=== PATIENT | male | born 1935 | race Caucasian/White ===

== ENCOUNTER → 2016-12-29 | Outpatient (CLI) | payer MEDICARE, BC ==
[2016-07-05 13:24] VITALS: BP 144/67
[~2016-12-29] MED LIST: ALPR0.5T PO; ALPR0.5T6 PO; AMLO1CAP15 PO; ASPI-482 PO; AZIT1PAC7 PO; FERR-26 PO; FLUT1DIS5 IH; GARL10002 PO; POTA99TA4 PO; PRED20TA PO; PROAIR HFA8.5 GM INH; TIOT18CA IH
--- NOTE | 2016-12-29 13:14 | KCIC ---
PROCEDURE CT chest without contrast. HISTORY Lung nodule, follow-up. TECHNIQUE Axial images and coronal and sagittal re-formatted images are provided. One or more of the following individualized dose reduction techniques were utilized for this exam: 1. Automated exposure control. 2. Adjustment of the mA and/or kV according to patient's size. 3. Use of iterative reconstruction technique. COMPARISON April 21, 2016. FINDINGS Right upper lobe nodule with irregular margins on image 25 measures 8 millimeters, stable. Right upper lobe nodule or area of scarring measuring 8 millimeters in size is similar to prior, coronal image 38. Right middle lobe nodule measuring 4 millimeters on image 76 is stable. Right lower lobe 5 millimeter nodule on image 54 retrospectively is stable. No worrisome pulmonary nodule on the left is identified. There is moderate to severe emphysema, unchanged. There is no pleural effusion. Central airways are patent. Left thyroid nodule is again noted. 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 There are coronary artery calcifications. Heart is not enlarged. Calcified right hilar lymph node is noted. There are degenerative changes in the spine. IMPRESSION - Stable noncalcified pulmonary nodules. Next follow up per Fleischner society recommendations is in approximately 6 months. - Moderate to severe emphysema. - Stable thyroid nodule. Electronically signed by: Mono Lopes MD (Dec 29, 2016 13:13:03)
== END | disposition home or self-care (01) ==
LOC: KCIC CT 10:06
PROVIDERS: ATTEND Internal Medicine Pulmonary Disease
DX: R91.1 Solitary pulmonary nodule (principal); J43.9 Emphysema, unspecified
CPT/HCPCS: 71250

== ENCOUNTER → 2017-01-08 | Outpatient (CLI) | payer MEDICARE, BC ==
[2016-07-05 13:24] VITALS: BP 144/67
--- NOTE | 2017-01-08 10:43 | RAD ---
Indication: Left thyroid nodule, 6 month follow-up after biopsy. Technique: Thyroid ultrasound was performed. Comparison is from May 30, 2016. Findings: Right thyroid lobe measures 4.2 x 1.6 x 1.7 cm and the left 4.1 x 2.6 x 2.4 cm. The isthmus measures 0.3 cm. Dominant nodule in the left thyroid lobe is complex with color-flow, measures up to 2.7 cm in size compared to 3.4 cm on prior. On the right, 4 of the 5 previously noted nodules were revisualized and not appreciably changed in size. There is a predominately cystic lesion in the superior right thyroid measuring up to 11 mm. There is a complex nodule mid right thyroid measuring up to 7 mm. There is a complex nodule inferior medial right thyroid measuring 6 mm. There is a complex nodule inferiorly measuring 4 mm. No enlarging nodule is identified. Impression: 1. Bilateral thyroid nodules including a dominant nodule on the left which has been previously sampled. No new or enlarging nodule identified.
== END | disposition home or self-care (01) ==
LOC: US 08:41
PROVIDERS: ATTEND Surgery
DX: E04.2 Nontoxic multinodular goiter (principal)
CPT/HCPCS: 76536

== ENCOUNTER → 2017-10-05 | Outpatient (CLI) | payer MEDICARE, BC ==
[2016-07-05 13:24] VITALS: BP 144/67
[~2017-10-05] MED LIST changes: -AZIT1PAC7 PO; +AZIT1PAC9 PO
--- NOTE | 2017-10-05 12:13 | KCIC ---
CT chest without contrast History: Lung nodule.. Technique: No intravenous contrast per request. Multiplanar reformatted images were obtained. Comparison: December 29, 2016. Exposure: One or more of the following individualized dose reduction techniques were utilized for this examination: 1. Automated exposure control 2. Adjustment of the mA and/or kV according to patient size 3. Use of iterative reconstruction technique. Findings: Vascular structures: Limited exam without contrast. Aorta is calcified and ectatic but no aneurysm identified. A very origin of the right subclavian artery is demonstrated. Lymph nodes:No significant enlargement Thyroid gland: Enlargement of the left thyroid gland with a low-density lesion is identified and stable. Heart: Coronary artery calcifications. Pleural spaces: No significant effusion Lungs: Couple of tiny 2 mm nodules in the left lower lobe are stable. Irregular right upper lobe nodule on coronal image 24 again measures 8 mm and is stable. Smaller area of ill-defined opacity in the more superior aspect of the right upper lobe is also stable, axial image 17. Very small right middle lobe nodule, axial image 49, is stable. Small irregular nodule in the right lower lobe, axial image 34, is stable. There is a small new nodule at the posterior aspect of the superior segment of the left lower lobe, measuring 4 mm, not seen previously. Subtle nodularity in the right lower lobe, axial image 35, is stable. Trachea and central airways: Patent Bones: No destructive process Upper abdomen: Slices obtained through the upper most abdomen are limited by the noncontrast technique. No obvious acute findings. Impression: 1. Small 4 mm nodule in the superior segment of left lower lobe, was not seen previously. As per Fleischner Society criteria, follow-up CT in 12 months could be considered if the patient is high risk. 2. Other multiple pulmonary nodules are stable since previous exam. 3. Stable left thyroid mass. Electronically signed by: Ralph Nguyen MD (10/05/2017 12:10 PM) [facility]
== END | disposition home or self-care (01) ==
LOC: KCIC CT 08:12
PROVIDERS: ATTEND Internal Medicine Pulmonary Disease
DX: E07.9 Disorder of thyroid, unspecified (principal)
CPT/HCPCS: 71250

== ENCOUNTER → 2018-06-26 | Outpatient (CLI) | payer MEDICARE, BC ==
[2016-07-05 13:24] VITALS: BP 144/67
[~2018-06-26] MED LIST changes: -FERR-26 PO; +FERR325T14 PO
--- NOTE | 2018-06-26 10:22 | CARD ---
MR#: [id number] Date of Study: 06/26/2018 Ordering Physician: JIMI RITCHIE, Referring Physician: JIMI RITCHIE, Tech: Mickie Gaytan APPROVED REPORT EXAM: Two-dimensional and M-mode echocardiogram with Doppler and color Doppler. Other Information Quality : AverageHR: 76bpm INDICATION Chronic Diastolic Heart Failure RISK FACTORS Hypertension Hyperlipidemia 2D DIMENSIONS RVDd2.1 (2.9-3.5cm)Left Atrium(2D)3.7 (1.6-4.0cm) IVSd0.7 (0.7-1.1cm)Aortic Root(2D)3.3 (2.0-3.7cm) LVDd4.5 (3.9-5.9cm)LVOT Diameter2.0 (1.8-2.4cm) PWd1.0 (0.7-1.1cm)LVDs3.1 (2.5-4.0cm) FS (%) 32.1 %SV55.9 ml LVEF(%)60.4 (>50%) Aortic Valve AoV Peak Stanford.223.6cm/sAoV VTI49.5cm AO Peak GR.20.0mmHgLVOT Peak Stanford.79.2cm/s AO Mean GR.12mmHgAVA (VMAX)1.16cm2 Mitral Valve MV E Ucrvhlqd808.5cm/sMV DECEL TCGN945ci MV A Ggpfbobs16.3cm/sE/A Ratio2.7 Tricuspid Valve TR P. Nmmygzsc939ft/sRAP BQIGNXLQ6xrPz TR Peak Gr.27nhCxIVRA96lcIg Pulmonary Vein PVa elikihnk232cqgh LEFT VENTRICLE The left ventricle is normal size. There is normal left ventricular wall thickness. The left ventricu lar systolic function is normal. The Ejection Fraction is 55-60%. There is normal LV segmental wall m otion. RIGHT VENTRICLE The right ventricle is normal size. There is normal right ventricular wall thickness. The right ventr icular systolic function is normal. ATRIA The left atrium size is normal. The right atrium size is normal. The interatrial septum is intact wit h no evidence for an atrial septal defect or patent foramen ovale as noted on 2-D or Doppler imaging. AORTIC VALVE The aortic valve is calcified and displays decreased opening. Doppler and Color Flow revealed no sign ificant aortic regurgitation. Mild aortic stenosis. MITRAL VALVE The mitral valve is thickened but opens well. Doppler and Color-flow revealed trace mitral regurgitat ion. TRICUSPID VALVE The tricuspid valve is normal in structure and function. Doppler and Color Flow revealed trace tricus pid regurgitation. PAP of 43 mmHg. PULMONIC VALVE The pulmonary valve is normal in structure and function. Doppler and Color Flow revealed no pulmonic valvular regurgitation. GREAT VESSELS The aortic root is normal in size. The IVC is normal in size and collapses >50% with inspiration. PERICARDIAL EFFUSION There is no evidence of significant pericardial effusion. Critical Notification Critical Value: No <Conclusion> The left ventricular systolic function is normal. The Ejection Fraction is 55-60%. There is normal LV segmental wall motion. Mild aortic stenosis. Trace mitral regurgitation. Trace tricuspid regurgitation. PAP of 43 mmHg. There is no evidence of significant pericardial effusion. Signed by : Akhil Loyd, Electronically Approved : 06/26/2018 10:22:20
== END | disposition home or self-care (01) ==
LOC: ECHO 07:16
PROVIDERS: ATTEND Internal Medicine Cardiovascular Disease
DX: I11.0 Hypertensive heart disease with heart failure (principal); I50.32 Chronic diastolic (congestive) heart failure; I35.0 Nonrheumatic aortic (valve) stenosis; J44.9 Chronic obstructive pulmonary disease, unspecified; I25.10 Atherosclerotic heart disease of native coronary artery without angina pectoris; M19.90 Unspecified osteoarthritis, unspecified site
CPT/HCPCS: 93306

== ENCOUNTER 2020-03-30 14:24 | Inpatient (IN) | payer MEDICARE, BC ==
[~2020-03-30] VITALS: Ht 170.2 cm; Wt 49.7 kg
[2020-03-30] VITALS (7 sets, daily range): BP systolic 147–181; BP diastolic 65–74
[~2020-03-30 14:24] MED LIST changes: +ALBU2.5V8 INH; +ALBU2.5V8 NEB; -AMLO1CAP15 PO; +AMLO1CAP54 PO; +APIX2.5T PO; +APIX5TAB PO; +BENA40TA3 PO; +DOXY100T PO; +LACT1CAP19 PO; -PROAIR HFA8.5 GM INH; +SOTA120T PO; +SPIR25TA5 PO; +TAMS0.4C97 PO
[2020-03-30] MEDS ORDERED: IV NORMAL SALINE 1000ML BAG 1,000 ML IV ONE (14:45)
[2020-03-30 14:51] LABS: BASO % 1 % (0-3); EOS % 1 % (0-3); HEMATOCRIT 34.3 % (39.0-53.0); HEMOGLOBIN 11.1 g/dL (13.0-17.5); LYMPH % 23 % (24-48); MEAN CORPUSCULAR HEMOGLOBIN 32 pg (25-35); MEAN CORPUSCULAR HGB CONC 32 g/dL (31-37); MEAN CORPUSCULAR VOLUME 99 fL (79-100); MONO # 0.5 x10^3/uL (0.0-1.1); MONO % 11 % (0-9); NEUT # 2.7 x10^3/uL (1.8-7.7); NEUT % 65 % (31-73); PLATELET COUNT 223 x10^3/uL (140-400); RED BLOOD COUNT 3.47 x10^6/uL (4.30-5.70); RED CELL DISTRIBUTION WIDTH 14.1 % (11.5-14.5); WHITE BLOOD COUNT 4.2 x10^3/uL (4.0-11.0)
[2020-03-30 15:03] LABS: PROTHROMBIN TIME PATIENT 12.3 SEC (11.7-14.0)
[2020-03-30 15:11] LABS: BLOOD UREA NITROGEN 25 mg/dL (8-26); BUN/CREATININE RATIO 28 (6-20); CALCIUM 9.5 mg/dL (8.5-10.1); CHLORIDE 97 mmol/L (98-107); CREATININE 0.9 mg/dL (0.7-1.3); GFR 80.6; GLUCOSE 99 mg/dL (70-99); POTASSIUM 4.5 mmol/L (3.5-5.1); SODIUM 145 mmol/L (136-145)
[2020-03-30 15:19] LABS: ALBUMIN 3.3 g/dL (3.4-5.0); ALBUMIN/GLOBULIN RATIO 0.9 (1.0-1.7); ALK PHOS 72 U/L (46-116); ALT (SGPT) 29 U/L (16-63); AST (SGOT) 29 U/L (15-37); LIPASE 69 U/L (73-393); TOTAL BILIRUBIN 0.4 mg/dL (0.2-1.0); TOTAL PROTEIN 6.9 g/dL (6.4-8.2)
[2020-03-30 15:21] LABS: CARBON DIOXIDE > 45 mmol/L (21-32)
[2020-03-30 15:40] LABS: BILIRUBIN,URINE SMALL (NEG); CLARITY,URINE CLEAR; COLOR,URINE YELLOW; NITRITE,URINE NEGATIVE (NEG); PROTEIN,URINE 30 mg/dL (NEG-TRACE)
--- NOTE | 2020-03-30 15:48 | EKG ---
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
[2020-03-30 15:49] LABS: BACTERIA,URINE 0 /HPF (0-FEW); HYALINE CASTS, URINE MANY /HPF; RBC,URINE OCC /HPF (0-2); WBC,URINE 0 /HPF (0-4)
[2020-03-30 16:51] LABS: BASE EXCESS ABG 20 mmol/L (-3-3); HCO3 ABG 54 mmol/L (21-28); PO2 ABG 214 mmHg (65-108); SAT O2 ABG 99 % (92-99)
[2020-03-30 16:56] LABS: FIO2 ABG 2.5L NC; PCO2 ABG 147 mmHg (35-46)
--- NOTE | 2020-03-30 17:15 | RAD ---
EXAM: CHEST AP ONLY INDICATION: Reason: soa / Spl. Instructions: / History: . TECHNIQUE: Single view COMPARISON: 02/19/2020 FINDINGS: The heart size is normal. Great vessels show aortic calcification and mild tortuosity, similar to prior. There is no hilar or mediastinal mass. The lungs show emphysema but no focal infiltrates. There is no pleural effusion or pneumothorax. There are no significant osseous abnormalities. IMPRESSION: Emphysema with no radiographic evidence of superimposed active cardiopulmonary disease. Electronically signed by: Bonnie Vincent MD (03/30/2020 5:12 PM) [id number]
--- NOTE | 2020-03-30 17:20 | PHYS DOC ---
Past Medical History Past Medical History: A-Fib, Anemia, COPD, Hypertension Past Surgical History: Other Additional Past Surgical Histo: nasal septal repair Smoking Status: Former Smoker Alcohol Use: Heavy Drug Use: None General Adult EDM: Chief Complaint: WEAKNESS/GENERALIZED HPI: HPI: Patient is a 84 year old male who was found unresponsive in his house today by his stepson. EMS were called, patient was able to wake up told them that he did not want to go to the hospital. But patient's step son and step daughter asked EMS to take patient to the hospital for evaluation due to his confusion. It was reported by family that patient's just had a stroke about 4 days ago, admitted at . They were planning to take her off life support today. Patient has been staying home by himself. His family suspect that patient stopped eating and taking his medication, giving up because his is dying. Review of Systems: Review of Systems: Not able to obtain due to patient condition. Heart Score: Risk Factors: Risk Factors: DM, Current or recent (<one month) smoker, HTN, HLP, family history of CAD, obesity. Risk Scores: Score 0 - 3: 2.5% MACE over next 6 weeks - Discharge Home Score 4 - 6: 20.3% MACE over next 6 weeks - Admit for Clinical Observation Score 7 - 10: 72.7% MACE over next 6 weeks - Early Invasive Strategies Current Medications: Current Medications Medications (Trade) Dose Ordered Sig/Gregory Start Time Stop Time Status Last Admin Dose Admin Sodium Chloride 1,000 ml @ 1,000 mls/hr 1X ONCE 03/30/20 14:45 03/30/20 15:44 DC 03/30/20 14:55 1,000 MLS/HR Allergies: Allergies: Allergies Coded Allergies Type Severity Reaction Last Updated Verified pneumococcal vaccine Adverse Reaction Intermediate upper arm red and swollen after vaccine 11/03/15 Yes Physical Exam: PE: Constitutional: Well developed, cachectic, appeared frail and dehydrated. HENT: Normocephalic, atraumatic, bilateral external ears normal, oral mucosa is very dried, no oral exudates, nose normal. [] Eyes: PERRLA, EOMI, conjunctiva normal, no discharge. [] Neck: Normal range of motion, no tenderness, supple, no stridor. [] Cardiovascular:Sinus bradycardia, regular rhythm, no murmur [] Lungs & Thorax: diffuse wheezing with decrease air movement, in no respiratory distress. Abdomen: Bowel sounds normal, soft, no tenderness, no masses, no pulsatile masses. [] Skin: Warm, dry, no erythema, no rash. [] Back: No tenderness, no CVA tenderness. [] Extremities: No tenderness, no cyanosis, no clubbing, ROM intact, no edema. [] Neurologic: alert, awake but very confused, was observed moving all extremities. Psychologic: not able to evaluate. Current Patient Data: Labs: Laboratory Tests Test 03/30/20 14:30 03/30/20 15:25 03/30/20 16:45 White Blood Count 4.2 x10^3/uL (4.0-11.0) Red Blood Count 3.47 x10^6/uL (4.30-5.70) L Hemoglobin 11.1 g/dL (13.0-17.5) L Hematocrit 34.3 % (39.0-53.0) L Mean Corpuscular Volume 99 fL (79-100) Mean Corpuscular Hemoglobin 32 pg (25-35) Mean Corpuscular Hemoglobin Concent 32 g/dL (31-37) Red Cell Distribution Width 14.1 % (11.5-14.5) Platelet Count 223 x10^3/uL (140-400) Neutrophils (%) (Auto) 65 % (31-73) Lymphocytes (%) (Auto) 23 % (24-48) L Monocytes (%) (Auto) 11 % (0-9) H Eosinophils (%) (Auto) 1 % (0-3) Basophils (%) (Auto) 1 % (0-3) Neutrophils # (Auto) 2.7 x10^3/uL (1.8-7.7) Lymphocytes # (Auto) 1.0 x10^3/uL (1.0-4.8) Monocytes # (Auto) 0.5 x10^3/uL (0.0-1.1) Eosinophils # (Auto) 0.0 x10^3/uL (0.0-0.7) Basophils # (Auto) 0.0 x10^3/uL (0.0-0.2) Prothrombin Time 12.3 SEC (11.7-14.0) Prothrombin Time INR 1.0 (0.8-1.1) Sodium Level 145 mmol/L (136-145) Potassium Level 4.5 mmol/L (3.5-5.1) Chloride Level 97 mmol/L (98-107) L Carbon Dioxide Level > 45 mmol/L (21-32) H Anion Gap (6-14) Blood Urea Nitrogen 25 mg/dL (8-26) Creatinine 0.9 mg/dL (0.7-1.3) Estimated GFR (Cockcroft-Gault) 80.6 BUN/Creatinine Ratio 28 (6-20) H Glucose Level 99 mg/dL (70-99) Calcium Level 9.5 mg/dL (8.5-10.1) Magnesium Level 2.0 mg/dL (1.8-2.4) Total Bilirubin 0.4 mg/dL (0.2-1.0) Aspartate Amino Transferase (AST) 29 U/L (15-37) Alanine Aminotransferase (ALT) 29 U/L (16-63) Alkaline Phosphatase 72 U/L (46-116) Troponin I Quantitative < 0.017 ng/mL (0.000-0.055) RS-Ksr-Z-Type Natriuretic Peptide 537 pg/mL (0-449) H Total Protein 6.9 g/dL (6.4-8.2) Albumin 3.3 g/dL (3.4-5.0) L Albumin/Globulin Ratio 0.9 (1.0-1.7) L Lipase 69 U/L (73-393) L Thyroid Stimulating Hormone (TSH) 1.426 uIU/mL (0.358-3.74) Free Thyroxine 0.91 ng/dL (0.76-1.46) Urine Collection Type U cath Urine Color Yellow Urine Clarity Clear Urine pH 5.0 (<5.0-8.0) Urine Specific [place] 1.025 (1.000-1.030) Urine Protein 30 mg/dL (NEG-TRACE) Urine Glucose (UA) Negative mg/dL (NEG) Urine Ketones (Stick) Negative mg/dL (NEG) Urine Blood Negative (NEG) Urine Nitrite Negative (NEG) Urine Bilirubin Small (NEG) Urine Urobilinogen Dipstick 1.0 mg/dL (0.2 mg/dL) Urine Leukocyte Esterase Negative (NEG) Urine RBC Occ /HPF (0-2) Urine WBC 0 /HPF (0-4) Urine Bacteria 0 /HPF (0-FEW) Urine Hyaline Casts Many /HPF Urine Mucus Mod /LPF O2 Saturation 99 % (92-99) Arterial Blood pH 7.18 (7.35-7.45) *L Arterial Blood pCO2 at Patient Temp 147 mmHg (35-46) *H Arterial Blood pO2 at Patient Temp 214 mmHg (65-108) H Arterial Blood HCO3 54 mmol/L (21-28) H Arterial Blood Base Excess 20 mmol/L (-3-3) H FiO2 2.5l nc Laboratory Tests 03/30/20 14:30 Laboratory Tests 03/30/20 14:30 Vital Signs: Vital Signs Date Time Temp Pulse Resp B/P (MAP) Pulse Ox O2 Delivery O2 Flow Rate FiO2 03/30/20 16:46 40 16 100 03/30/20 14:25 98.5 142/65 (90) Nasal Cannula 3.0 98.5 EKG: EKG: EKG was done at 1454, heart rate of 40 beats per minute, sinus bradycardia, no ST segment elevation. [] Radiology/Procedures: Radiology/Procedures: [][facility] [address] [place] [address] IMAGING REPORT Signed PATIENT: JERROD WHIPPLE ACCOUNT: [id number] : 1935 LOCATION: ER AGE: 84 SEX: M EXAM STATUS: REG ER ORD. PHYSICIAN: DAVIN CASTELLANOS DO REASON: soa PROCEDURE: CHEST AP ONLY EXAM: CHEST AP ONLY INDICATION: Reason: soa / Spl. Instructions: / History: . TECHNIQUE: Single view COMPARISON: 02/19/2020 FINDINGS: The heart size is normal. Great vessels show aortic calcification and mild tortuosity, similar to prior. There is no hilar or mediastinal mass. The lungs show emphysema but no focal infiltrates. There is no pleural effusion or pneumothorax. There are no significant osseous abnormalities. IMPRESSION: Emphysema with no radiographic evidence of superimposed active cardiopulmonary disease. Electronically signed by: Lucas Vincent MD (03/30/2020 5:12 PM) [id number] DICTATED and SIGNED BY: LUCAS VINCENT MD DATE: 03/30/20 1712 Course & Med Decision Making: Course & Med Decision Making Pertinent Labs and Imaging studies reviewed. (See chart for details) Patient is an 84-year-old who was found to be dehydrated, COPD with hypercapnia. His CO2 level IS 147. I suspect that his baseline around 80. Patient is awake alert, not OBTUNDED. Discussed with the grey goods tester car inspection and repair manager Dr. MAURILIO Garcia, who recommended to put him on BiPAP and admit him to ICU. At this time HIS CODE STATUS CANNOT BE EVALUATED BECAUSE OF HIS MENTAL STATUS and no biological children or DPOA were available. Thus we will keep his code status as full for now. Patient was given IV fluid and his condition appeared to improved. I suspected that patient is giving up, stopped eating and stopped taking his medications because his just . Will admit him to ICU. Discussed with Dr. Ward who agreed to admit patient. I was able to discuss patient's condition with his step son, Vivek. He stated that he cannot make medical decision for patient because he is not DPOA but he knew that his step dad does not want to be on life support. Critical care time was [60] minutes which includes time at bedside, spent in discussion of patient's care with specialist and/or family members, with interpretation of laboratory and/or radiological studies and is exclusive of procedures. Dragon Disclaimer: Dragreid Disclaimer: This electronic medical record was generated, in whole or in part, using a voice recognition dictation system. Departure Departure Impression: Primary Impression: Hypercapnia Additional Impressions: COPD (chronic obstructive pulmonary disease) Dehydration Altered mental status Disposition: ADMITTED INPATIENT Admitting Physician: JORDAN (DR. WARD) Condition: GUARDED Referrals: TRAY NETTLES MD (PCP) DAVIN CASTELLANOS DO Mar 30, 2020 17:20
[2020-03-30] MEDS ORDERED: methylPREDNISolone SOD SUCC PF 125 MG/2 ML VIAL. IV ONE (17:30)
[2020-03-30 20:50] LABS: BASE EXCESS ABG 16 mmol/L (-3-3); HCO3 ABG 43 mmol/L (21-28); PO2 ABG 58 mmHg (65-108); SAT O2 ABG 91 % (92-99)
[2020-03-30 20:51] LABS: PCO2 ABG 72 mmHg (35-46)
--- NOTE | 2020-03-30 22:56 | HP ---
ADMIT DATE: CHIEF COMPLAINT: Failure to thrive. HISTORY OF PRESENT ILLNESS: The patient is a pleasant 84-year-old male who has been for a long time. His was in the hospital at , apparently today they withdrew care and I believe she did pass away. He is now very depressed. It sounds like he has been doing well at home by himself for quite some time. I think he has been at home alone for a week or so. He has not been eating. He is very dehydrated, lethargic. His heart rate was low while in the ER, his CO2 level is high. I discussed the case with ER physician. We consider even intubating the patient, but he does not want that. His pH was 7.1 while in the ER. We have now admitted him to the ICU. We placed him on BiPAP. Now, he is waking up, doing a little better. PAST MEDICAL HISTORY: Reviewed in the computerized system. Please refer to the computerized H and P. ALLERGIES: None. FAMILY HISTORY: Diabetes. SOCIAL HISTORY: He is . He just lost his today. MEDICATIONS: Reviewed, please refer to the MRAD. REVIEW OF SYSTEMS: Unable to obtain. The patient is too weak. PHYSICAL EXAMINATION: VITALS: Within normal limits and are stable. GENERAL: He is depressed, disheveled and weak. HEENT: Oral mucosa is moist. EYES: Extraocular muscles are intact, pupils are equally round and reactive to light and accommodation MUSCULOSKELETAL: Well developed, well nourished, good range of motion ENDOCRINE: No thyromegaly was palpated LYMPHATICS: No cervical chain or axillary nodes were noted HEMATOPOIETIC: No bruising NECK: Supple, no JVD, no thyromegaly was noted. LUNGS: Clear to auscultation in all lung lujan without rhonchi or wheezing. HEART: RRR, S1, S2 present. Peripheral pulses intact, no obvious murmurs were noted. ABDOMEN: Soft, nontender. Positive bowel sounds no organomegaly, normal bowel sounds. EXTREMITIES: Without any cyanosis, clubbing, or edema. Pedal pulses intact, Homans sign is negative. NEUROLOGIC: Normal speech, normal tone. A & O x3, moves all extremities, no obvious focal deficits. PSYCHIATRIC: Normal affect, normal mood. Stable. SKIN: He has very poor skin turgor, appears to be dehydrated. VASCULAR: Good capillary refill, neurovascular bundle appears to be intact. ASSESSMENT AND PLAN: Failure to thrive. The patient has been admitted. We are going to start some low-dose peripheral nutrition including procalamine at 75 mL an hour. Home meds, DVT prophylaxis, full code, BiPAP. Consult Pulmonary. The patient has already started to perk up, so maybe he will do better, but at this point, his prognosis is guarded. RADHA VALLADARES DO DR: ALAN/michael JOB#: [id number] / [id number]
[2020-03-30] MEDS: AMINO AC 3%/ELECTROLYTE/GLYCER 1,000 ML IV SCH (23:24)
[2020-03-30] MEDS: hydrALAZINE 20 MG/ML VIAL. IVP PRN (23:25)
[2020-03-31] VITALS (24 sets, daily range): BP systolic 126–210; BP diastolic 50–84
--- NOTE | 2020-03-31 04:53 | NUR ---
Admitted to CVICU room 270 from ED. Arrived to room with 2L NC. Bipap placed by . Jose requested repeat blood gas. Evaluated by Ed at bedside. Spoke with patient's daughter Kimberly platt be arriving to [place] from [place]. She advised tension within the family and in-laws. Advised patient of conversation and patient got irate and advised she is a "crook". But he stated it was okay to give her information. Patient states he has "panic attacks" and usually takes "4 xanax" a day. Unknown dose. Episodes of HTN. [place] notified and orders received for hydralzine. Patient tolerated bipap but would occasionally pull of mask. Will continue to monitor.
--- NOTE | 2020-03-31 08:11 | PDOC ---
[employer] PROGRESS NOTE Chief Complaint Chief Complaint Probable failure to thrive (he cannot take care of himself at home I do not think) Hypercapnia Respiratory failure COPD Probable severe depression (his recently) A. fib Hypertension Anemia Alcohol use Tobacco History of Present Illness History of Present Illness 03/31/2020 Patient seen and examined in the ICU He is on BiPAP He is receiving IV ProcalAmine at 75 cc an hour Discussed with nurse Chart reviewed Vitals/I&O Vitals/I&O: Vital Signs Date Time Temp Pulse Resp B/P (MAP) Pulse Ox O2 Delivery O2 Flow Rate FiO2 03/31/20 07:41 98.9 55 18 178/76 (110) 100 BiPAP/CPAP 98.9 03/31/20 04:00 1.0 I & O 03/30/20 03/30/20 03/31/20 15:00 23:00 07:00 Intake Total 1000 ml Output Total 400 ml Balance 1000 ml -400 ml Physical Exam General: Oriented X3, mild distress Heart: Regular rate, Normal S1 Lungs: Other (Decreased breath sounds) Abdomen: Normal bowel sounds Extremities: No clubbing Skin: Other (Poor skin turgor dry) Labs Labs: Laboratory Tests Test 03/30/20 14:30 03/30/20 15:25 03/30/20 16:45 03/30/20 21:20 White Blood Count 4.2 x10^3/uL (4.0-11.0) Red Blood Count 3.47 x10^6/uL (4.30-5.70) Hemoglobin 11.1 g/dL (13.0-17.5) Hematocrit 34.3 % (39.0-53.0) Mean Corpuscular Volume 99 fL (79-100) Mean Corpuscular Hemoglobin 32 pg (25-35) Mean Corpuscular Hemoglobin Concent 32 g/dL (31-37) Red Cell Distribution Width 14.1 % (11.5-14.5) Platelet Count 223 x10^3/uL (140-400) Neutrophils (%) (Auto) 65 % (31-73) Lymphocytes (%) (Auto) 23 % (24-48) Monocytes (%) (Auto) 11 % (0-9) Eosinophils (%) (Auto) 1 % (0-3) Basophils (%) (Auto) 1 % (0-3) Neutrophils # (Auto) 2.7 x10^3/uL (1.8-7.7) Lymphocytes # (Auto) 1.0 x10^3/uL (1.0-4.8) Monocytes # (Auto) 0.5 x10^3/uL (0.0-1.1) Eosinophils # (Auto) 0.0 x10^3/uL (0.0-0.7) Basophils # (Auto) 0.0 x10^3/uL (0.0-0.2) Prothrombin Time 12.3 SEC (11.7-14.0) Prothromb Time International Ratio 1.0 (0.8-1.1) Sodium Level 145 mmol/L (136-145) Potassium Level 4.5 mmol/L (3.5-5.1) Chloride Level 97 mmol/L (98-107) Carbon Dioxide Level > 45 mmol/L (21-32) Anion Gap (6-14) Blood Urea Nitrogen 25 mg/dL (8-26) Creatinine 0.9 mg/dL (0.7-1.3) Estimated GFR (Cockcroft-Gault) 80.6 BUN/Creatinine Ratio 28 (6-20) Glucose Level 99 mg/dL (70-99) Calcium Level 9.5 mg/dL (8.5-10.1) Magnesium Level 2.0 mg/dL (1.8-2.4) Total Bilirubin 0.4 mg/dL (0.2-1.0) Aspartate Amino Transf (AST/SGOT) 29 U/L (15-37) Alanine Aminotransferase (ALT/SGPT) 29 U/L (16-63) Alkaline Phosphatase 72 U/L (46-116) Troponin I Quantitative < 0.017 ng/mL (0.000-0.055) DR-Fod-U-Type Natriuretic Peptide 537 pg/mL (0-449) Total Protein 6.9 g/dL (6.4-8.2) Albumin 3.3 g/dL (3.4-5.0) Albumin/Globulin Ratio 0.9 (1.0-1.7) Lipase 69 U/L (73-393) Thyroid Stimulating Hormone (TSH) 1.426 uIU/mL (0.358-3.74) Free Thyroxine 0.91 ng/dL (0.76-1.46) Urine Collection Type U cath Urine Color Yellow Urine Clarity Clear Urine pH 5.0 (<5.0-8.0) Urine Specific [place] 1.025 (1.000-1.030) Urine Protein 30 mg/dL (NEG-TRACE) Urine Glucose (UA) Negative mg/dL (NEG) Urine Ketones (Stick) Negative mg/dL (NEG) Urine Blood Negative (NEG) Urine Nitrite Negative (NEG) Urine Bilirubin Small (NEG) Urine Urobilinogen Dipstick 1.0 mg/dL (0.2 mg/dL) Urine Leukocyte Esterase Negative (NEG) Urine RBC Occ /HPF (0-2) Urine WBC 0 /HPF (0-4) Urine Bacteria 0 /HPF (0-FEW) Urine Hyaline Casts Many /HPF Urine Mucus Mod /LPF O2 Saturation 99 % (92-99) 91 % (92-99) Arterial Blood pH 7.18 (7.35-7.45) 7.40 (7.35-7.45) Arterial Blood pCO2 at Patient Temp 147 mmHg (35-46) 72 mmHg (35-46) Arterial Blood pO2 at Patient Temp 214 mmHg (65-108) 58 mmHg (65-108) Arterial Blood HCO3 54 mmol/L (21-28) 43 mmol/L (21-28) Arterial Blood Base Excess 20 mmol/L (-3-3) 16 mmol/L (-3-3) FiO2 2.5l nc Arterial Blood pO2 (Temp corrected) mmHg Review of Systems Review of Systems: Complains of depression complains of weakness Assessment and Plan Assessmemt and Plan Problems Medical Problems: (1) Altered mental status Status: Acute (2) COPD (chronic obstructive pulmonary disease) Status: Acute (3) Dehydration Status: Acute (4) Hypercapnia Status: Acute Probable failure to thrive (he cannot take care of himself at home I do not think) Hypercapnia Respiratory failure COPD Probable severe depression (his recently) A. fib Hypertension Anemia Alcohol use Tobacco Plan ICU monitoring IV PPN which seems to be helping a lot BiPAP Home meds PT OT DVT prophylaxis Full code Appreciate subspecialist input I suspect he will need long-term care placement after discharge Long-term prognosis guarded Comment Review of Relevant I have reviewed the following items matheus (where applicable) has been applied. Medications: Current Medications Medications (Trade) Dose Ordered Sig/Gregory Route PRN Reason Start Time Stop Time Status Last Admin Dose Admin Sodium Chloride 1,000 ml @ 1,000 mls/hr 1X ONCE IV 03/30/20 14:45 03/30/20 15:44 DC 03/30/20 14:55 Methylprednisolone Sodium Succinate (SOLU-Medrol 125MG VIAL) 125 mg 1X ONCE IV 03/30/20 17:30 03/30/20 17:31 DC 03/30/20 17:27 Amino Acids/ Glycerin/ Electrolytes 1,000 ml @ 75 mls/hr [id number] IV 03/30/20 21:30 03/30/20 23:24 Hydralazine HCl (Apresoline Inj) 10 mg PRN Q2HR PRN IVP ELEVATED BP, SEE COMMENTS 03/30/20 23:00 03/30/20 23:25 Justicifation of Admission Dx: Justifications for Admission: Justification of Admission Dx: Yes Respiratory Failure: Severe Vent Deficit RADHA VALLADARES III DO Mar 31, 2020 08:11
[2020-03-31] MEDS: hydrALAZINE 20 MG/ML VIAL. IVP PRN ×4 (08:52→22:00)
[2020-03-31] MEDS ORDERED: SOTALOL 80 MG TABLET. PO SCH (10:00)
--- NOTE | 2020-03-31 10:20 | PDOC2 ---
JUAN GONZÁLES COKE CRUSHER OPERATOR 03/31/20 1020: CARDIAC CONSULT DATE OF CONSULT Date of Consult DATE: 03/31/20 TIME: 10:07 REASON FOR CONSULT Reason for Consult: Sinus bradycardia REFERRING PHYSICIAN Referring Physician: Dr. Garcia SOURCE Source: Chart review, Patient HISTORY OF PRESENT ILLNESS HISTORY OF PRESENT ILLNESS This is 84 yo male was was found at home unresponsive by family. Patient initially declined to go to the ED, but family insisted as he was confused. Was noted to be bradycardic upon arrival, which prompted this consult. Patient is on Sotalol for AFIB. Unfortunately, patient suffered massing stroke this past Sunday. Was taken off of Life Support and passes away this morning. Family concerned that he is not able to care for himself at home. Patient reports compliance with meds. No chest pain, palpitations, dizziness, diaphoresis, or nausea/vomiting. PAST MEDICAL HISTORY Past Medical History Cardiovascular: AFIB (with past cvn), CHF, HTN, Hyperlipidemia, Aortic stenosis Pulmonary: COPD (O2 use) Psych: Anxiety Musculoskeletal: Osteoarthritis Endocrine: Other (left thyroid nodule) PAST SURGICAL HISTORY Past Surgical History Other (finger cyst removal, nasal septum repair) FAMILY HISTORY Family History: Diabetes, Stroke SOCIAL HISTORY Smoke: Quit ALCOHOL: other (quit ) Lives: Alone ( passed recently ) CURRENT MEDICATIONS CURRENT MEDICATIONS Current Medications Medications (Trade) Dose Ordered Sig/Gregory Route PRN Reason Start Time Stop Time Status Last Admin Dose Admin Sodium Chloride 1,000 ml @ 1,000 mls/hr 1X ONCE IV 03/30/20 14:45 03/30/20 15:44 DC 03/30/20 14:55 Methylprednisolone Sodium Succinate (SOLU-Medrol 125MG VIAL) 125 mg 1X ONCE IV 03/30/20 17:30 03/30/20 17:31 DC 03/30/20 17:27 Amino Acids/ Glycerin/ Electrolytes 1,000 ml @ 75 mls/hr [id number] IV 03/30/20 21:30 03/30/20 23:24 Hydralazine HCl (Apresoline Inj) 10 mg PRN Q2HR PRN IVP ELEVATED BP, SEE COMMENTS 03/30/20 23:00 03/31/20 08:52 ALLERGIES ALLERGIES: Coded Allergies: pneumococcal vaccine (Verified Adverse Reaction, Intermediate, upper arm red and swollen after vaccine, 11/03/15) Had vaccine several years ago (had taken previously without incident) ROS Review of System 14 point ROS conducted with pertinent positives noted above in HPI PHYSICAL EXAM General: Alert, Cooperative, No acute distress, Other (oriented to person and time. Intermittent confusion) HEENT: Atraumatic, Mucous membr. moist/pink Lungs: Clear to auscultation Heart: Regular rate, Normal S1, Normal S2, No murmurs Abdomen: Soft, No tenderness Extremities: No edema, Normal pulses Skin: No breakdown, No significant lesion Neuro: Normal speech, Sensation intact Psych/Mental Status: Mood NL MUSCULOSKELETAL: Osteoarthritic changes both hands VITALS/I&O VITALS/I&O: Vital Signs Date Time Temp Pulse Resp B/P (MAP) Pulse Ox O2 Delivery O2 Flow Rate FiO2 03/31/20 10:03 72 28 156/64 (94) 98 Nasal Cannula 2.0 03/31/20 07:41 98.9 98.9 I & O 03/30/20 03/30/20 03/31/20 15:00 23:00 07:00 Intake Total 1000 ml Output Total 400 ml Balance 1000 ml -400 ml LABS Lab: Laboratory Tests Test 03/30/20 14:30 03/30/20 15:25 03/30/20 16:45 03/30/20 21:20 White Blood Count 4.2 x10^3/uL (4.0-11.0) Red Blood Count 3.47 x10^6/uL (4.30-5.70) L Hemoglobin 11.1 g/dL (13.0-17.5) L Hematocrit 34.3 % (39.0-53.0) L Mean Corpuscular Volume 99 fL (79-100) Mean Corpuscular Hemoglobin 32 pg (25-35) Mean Corpuscular Hemoglobin Concent 32 g/dL (31-37) Red Cell Distribution Width 14.1 % (11.5-14.5) Platelet Count 223 x10^3/uL (140-400) Neutrophils (%) (Auto) 65 % (31-73) Lymphocytes (%) (Auto) 23 % (24-48) L Monocytes (%) (Auto) 11 % (0-9) H Eosinophils (%) (Auto) 1 % (0-3) Basophils (%) (Auto) 1 % (0-3) Neutrophils # (Auto) 2.7 x10^3/uL (1.8-7.7) Lymphocytes # (Auto) 1.0 x10^3/uL (1.0-4.8) Monocytes # (Auto) 0.5 x10^3/uL (0.0-1.1) Eosinophils # (Auto) 0.0 x10^3/uL (0.0-0.7) Basophils # (Auto) 0.0 x10^3/uL (0.0-0.2) Prothrombin Time 12.3 SEC (11.7-14.0) Prothrombin Time INR 1.0 (0.8-1.1) Sodium Level 145 mmol/L (136-145) Potassium Level 4.5 mmol/L (3.5-5.1) Chloride Level 97 mmol/L (98-107) L Carbon Dioxide Level > 45 mmol/L (21-32) H Anion Gap (6-14) Blood Urea Nitrogen 25 mg/dL (8-26) Creatinine 0.9 mg/dL (0.7-1.3) Estimated GFR (Cockcroft-Gault) 80.6 BUN/Creatinine Ratio 28 (6-20) H Glucose Level 99 mg/dL (70-99) Calcium Level 9.5 mg/dL (8.5-10.1) Magnesium Level 2.0 mg/dL (1.8-2.4) Total Bilirubin 0.4 mg/dL (0.2-1.0) Aspartate Amino Transferase (AST) 29 U/L (15-37) Alanine Aminotransferase (ALT) 29 U/L (16-63) Alkaline Phosphatase 72 U/L (46-116) Troponin I Quantitative < 0.017 ng/mL (0.000-0.055) [id number] Natriuretic Peptide 537 pg/mL (0-449) H Total Protein 6.9 g/dL (6.4-8.2) Albumin 3.3 g/dL (3.4-5.0) L Albumin/Globulin Ratio 0.9 (1.0-1.7) L Lipase 69 U/L (73-393) L Thyroid Stimulating Hormone (TSH) 1.426 uIU/mL (0.358-3.74) Free Thyroxine 0.91 ng/dL (0.76-1.46) Urine Collection Type U cath Urine Color Yellow Urine Clarity Clear Urine pH 5.0 (<5.0-8.0) Urine Specific [place] 1.025 (1.000-1.030) Urine Protein 30 mg/dL (NEG-TRACE) Urine Glucose (UA) Negative mg/dL (NEG) Urine Ketones (Stick) Negative mg/dL (NEG) Urine Blood Negative (NEG) Urine Nitrite Negative (NEG) Urine Bilirubin Small (NEG) Urine Urobilinogen Dipstick 1.0 mg/dL (0.2 mg/dL) Urine Leukocyte Esterase Negative (NEG) Urine RBC Occ /HPF (0-2) Urine WBC 0 /HPF (0-4) Urine Bacteria 0 /HPF (0-FEW) Urine Hyaline Casts Many /HPF Urine Mucus Mod /LPF O2 Saturation 99 % (92-99) 91 % (92-99) L Arterial Blood pH 7.18 (7.35-7.45) *L 7.40 (7.35-7.45) Arterial Blood pCO2 at Patient Temp 147 mmHg (35-46) *H 72 mmHg (35-46) *H Arterial Blood pO2 at Patient Temp 214 mmHg (65-108) H 58 mmHg (65-108) L Arterial Blood HCO3 54 mmol/L (21-28) H 43 mmol/L (21-28) H Arterial Blood Base Excess 20 mmol/L (-3-3) H 16 mmol/L (-3-3) H FiO2 2.5l nc Arterial Blood pO2 (Temp corrected) mmHg Laboratory Tests 03/30/20 14:30 Laboratory Tests 03/30/20 14:30 ECHOCARDIOGRAM ECHOCARDIOGRAM <Conclusion> The left ventricular systolic function is normal. The Ejection Fraction is 55-60%. There is normal LV segmental wall motion. Trace mitral regurgitation. Trace tricuspid regurgitation with an estimated PAP of 39 mmHg. There is no evidence of significant pericardial effusion. DATE: 02/20/20 1617 ASSESSMENT/PLAN ASSESSMENT/PLAN 1. Unresponsiveness 2. Acute on chronic respiratory failure with AE COPD 3. PAFIB; SR/SB; HR in 40's upon arrival. on Sotalol 120 BID for rhythm maintenance. Recent echo with preserved LV systolic function. No significant valvular anomalies. 4. Accelerated hypertension; remains elevated 5. Anxiety, depression; suffered massive CVA this past Sunday, this am. 6. FTT Recommendations Hold sotalol for 72hrs. Will resume at 120mg daily as CrCl 41. Lisinopril added for BP control Eliquis for stroke prevention Lung optimization as per pulm Supportive care JIMI RITCHIE MD 03/31/20 1653: CARDIAC CONSULT ASSESSMENT/PLAN ASSESSMENT/PLAN Patient seen and examined I agree with our nurse practitioners assessment and plan as above. Acute on chronic respiratory failure with severe COPD. Patient is being evaluated and followed by the pulmonary service. Paroxysmal atrial fibrillation with a sinus bradycardia with rates in the 40s. Holding sotalol at this time as above. Hypertension. Lisinopril added. Continuing to monitor. Thank you for allowing us to participate in the care of your patient. JUAN GONZÁLES APRN Mar 31, 2020 10:20 JIMI RITCHIE MD Mar 31, 2020 16:53
--- NOTE | 2020-03-31 10:20 | CONS ---
DATE OF CONSULTATION: PULMONARY CONSULTATION ATTENDING PHYSICIAN: Dr. Ward. REASON FOR CONSULTATION: Respiratory failure. HISTORY OF PRESENT ILLNESS: The patient is an 84-year-old male who 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 He was brought into the hospital with dyspnea and lethargy. The patient's had a stroke and is admitted to another hospital. He was depressed. He thinks that she may not survive. ER physician called me at that time with his arterial blood gases, which were highly abnormal with a pH of 7.18, pCO2 of 147 and a pO2 of 214 on 2.5 liters. At that time, the patient was having conversation when these ABGs were drawn. Since his code status was questionable, we opted to give him a trial on BiPAP. The patient subsequently made improvement and his mental status continued to improve and follow ABGs last evening showed a pH of 7.40, pCO2 of 72 and a pO2 of 58 on BiPAP. He is now on a nasal cannula. He is fully awake, following commands. He denies any cough, chest pain or headaches. No nausea, vomiting or diarrhea. His chest x-ray revealed evidence of COPD. No definite consolidation seen. He had a CT chest on 02/22/2020 which was also reviewed by me and it shows resolution of 4 mm tiny nodules in the left upper lobe. There was evidence of emphysema and very tiny few millimeters nodules. The patient has lost weight as well over several months. PAST MEDICAL HISTORY: Significant for suspected end-stage chronic obstructive pulmonary disease. Protein-calorie malnutrition with loss of muscle mass likely secondary to end-stage chronic obstructive pulmonary disease. PAST SURGICAL HISTORY: None recently. FAMILY HISTORY: Diabetes. ALLERGIES: None. MEDICATIONS: Reviewed as listed in the [facility] including Xanax, which he takes at home. REVIEW OF SYSTEMS: A 12-point obtained. Pertinent positives discussed in my history of present illness, otherwise noncontributory. All systems that were negative were reviewed as well. SOCIAL HISTORY: He has a long history of tobacco use. PHYSICAL EXAMINATION: GENERAL: He is awake, following commands. He is off the BiPAP. VITAL SIGNS: His blood pressure 161/57, pulse ox 100% on 4 liters. It is down to 2 liters, afebrile. HEENT: Sclerae nonicteric. NECK: Supple. LUNGS: With diminished breath sounds bilaterally. CARDIOVASCULAR: With a regular rate. ABDOMEN: Soft, nontender. EXTREMITIES: With no pitting edema. LABORATORY DATA: Reviewed. ABGs are discussed in my history of present illness. BUN is 25, creatinine 0.9, bicarbonate more than 45. IMPRESSION: 1. [id number] hypercapnic respiratory failure secondary to acute exacerbation of chronic obstructive pulmonary disease. 2. End-stage chronic obstructive pulmonary disease with significant weight loss, likely secondary to chronic obstructive pulmonary disease. No definite mass seen on the chest x-ray and previous CT. 3. Previous abnormal CT chest with tiny lung nodules, 2-3 mm in diameter and no intervention required for that. 4. Chronic benzodiazepine use, may have contributed to hypercapnic respiratory failure. RECOMMENDATIONS: 1. The patient has improved with the BiPAP. Clinically, he is fully oriented. I will continue nasal cannula. Avoid hyperoxia and keep using BiPAP at bedtime. 2. Add bronchodilators. 3. Minimize benzodiazepines. 4. Lovenox for DVT prophylaxis. 5. I have discussed advanced directives with the patient and discussed with him regarding the option of intubation and CPR and defibrillation and he clearly says no to it which is very reasonable decision. 6. I discussed with RN as well who witnessed the patient's advanced directives. He will be a DNR. We will follow along with you. Critical care time 37 minutes. MAURILIO ALEJANDRA MD DR: OSEI/michael JOB#: [id number] / [id number]
[2020-03-31] MEDS: LACTOBACILLUS RHAMNOSUS GG 1 CAPSULE. PO SCH ×2 (10:58→21:54)
[2020-03-31] MEDS: ASPIRIN ENTERIC COATED 81 MG TABLET.DR. PO SCH (10:58)
[2020-03-31] MEDS: APIXABAN 2.5 MG TABLET. PO SCH ×2 (10:58→21:54)
[2020-03-31] MEDS: AMINO AC 3%/ELECTROLYTE/GLYCER 1,000 ML IV SCH (10:59)
--- NOTE | 2020-03-31 11:09 | NUR ---
Spoke with patient's step daughter, Kandy. She informed me, Ethal, her mom and patient's this morning at . Patient is aware that was taken to for a CVA. Trying to get ahold of step son, Vivek, to discuss if and when to let patient know. Several family members has called this RN. This RN request a family member to be the main contact. Family dynamics are strained.
[2020-03-31] MEDS: LISINOPRIL 20 MG TABLET PO SCH ×2 (12:22→21:54)
[2020-03-31] MEDS: ALPRAZolam 0.25 MG TABLET PO PRN ×2 (12:22→21:29)
[2020-03-31] MEDS: IPRATRPIUM/ALBUTEROL 0.5/2.5MG 3 ML NEBU. NEB SCH ×2 (15:38→20:01)
--- NOTE | 2020-03-31 16:02 | NUR ---
SS following for discharge planning. SS reviewed pt chart and discussed with pt RN. Pt is from home and is currently on BIPAP on and off. Pt recently withdrew care of spouse and was admitted to [facility] shortly after. Pt is currently on PPN and will need PT/OT to evaluate and assess needs. SS will continue to follow for discharge planning.
[2020-03-31] MEDS ORDERED: ANTI-COAG MONITOR BY PHARMACY. MC PRN (17:00)
--- NOTE | 2020-03-31 18:19 | NUR ---
Patient's long time friend, Ed Walker, called and told patient that his this morning. Patient is talkative, however seems to be taking it well. This RN will consult SS for home health consideration for patient per family friend.
[2020-03-31] MEDS: TAMSULOSIN 0.4 MG CAP.ER.24H. PO SCH (21:54)
[2020-04-01] VITALS (13 sets, daily range): BP systolic 128–182; BP diastolic 60–96
[2020-04-01] MEDS: ALPRAZolam 0.25 MG TABLET PO PRN ×4 (03:38→19:47)
[2020-04-01] MEDS: hydrALAZINE 20 MG/ML VIAL. IVP PRN (04:04)
[2020-04-01] MEDS: AMINO AC 3%/ELECTROLYTE/GLYCER 1,000 ML IV SCH ×3 (04:19→19:44)
[2020-04-01] MEDS: IPRATRPIUM/ALBUTEROL 0.5/2.5MG 3 ML NEBU. NEB SCH ×4 (08:28→19:51)
[2020-04-01] MEDS: APIXABAN 2.5 MG TABLET. PO SCH ×2 (08:29→19:46)
[2020-04-01] MEDS: ASPIRIN ENTERIC COATED 81 MG TABLET.DR. PO SCH (08:29)
[2020-04-01] MEDS: LACTOBACILLUS RHAMNOSUS GG 1 CAPSULE. PO SCH ×2 (08:29→19:46)
[2020-04-01] MEDS: LISINOPRIL 20 MG TABLET PO SCH ×2 (08:30→19:46)
[2020-04-01 08:56] LABS: HEMATOCRIT 32.6 % (39.0-53.0); HEMOGLOBIN 10.6 g/dL (13.0-17.5); RED BLOOD COUNT 3.38 x10^6/uL (4.30-5.70); RED CELL DISTRIBUTION WIDTH 14.3 % (11.5-14.5); WHITE BLOOD COUNT 5.9 x10^3/uL (4.0-11.0)
[2020-04-01 09:35] LABS: ALBUMIN 2.9 g/dL (3.4-5.0); ALBUMIN/GLOBULIN RATIO 0.9 (1.0-1.7); CALCIUM 9.3 mg/dL (8.5-10.1); CREATININE 0.7 mg/dL (0.7-1.3); GFR 107.7; POTASSIUM 3.9 mmol/L (3.5-5.1); TOTAL BILIRUBIN 0.3 mg/dL (0.2-1.0); TOTAL PROTEIN 6.1 g/dL (6.4-8.2)
--- NOTE | 2020-04-01 09:44 | PDOC ---
PULMONARY PROGRESS NOTES Subjective awake and alert up in chair this morning, denies SOB or increased cough. Currently on 5 liters N/C Vitals Vital Signs Date Time Temp Pulse Resp B/P (MAP) Pulse Ox O2 Delivery O2 Flow Rate FiO2 04/01/20 08:30 104 137/71 04/01/20 08:28 99 Nasal Cannula 2.0 04/01/20 06:00 21 04/01/20 04:00 98.4 98.4 ROS: No Nausea, No Chest Pain, No Abdominal Pain, No Increase Cough Lungs: Other (Decreased breath sounds) Cardiovascular: S1, S2 Abdomen: Soft, Non-tender Neuro Exam: Alert, Oriented Extremities: No Edema Skin: Warm, Dry Labs Laboratory Tests Test 03/30/20 14:30 03/30/20 15:25 03/30/20 16:45 03/30/20 21:20 White Blood Count 4.2 x10^3/uL (4.0-11.0) Red Blood Count 3.47 x10^6/uL (4.30-5.70) Hemoglobin 11.1 g/dL (13.0-17.5) Hematocrit 34.3 % (39.0-53.0) Mean Corpuscular Volume 99 fL (79-100) Mean Corpuscular Hemoglobin 32 pg (25-35) Mean Corpuscular Hemoglobin Concent 32 g/dL (31-37) Red Cell Distribution Width 14.1 % (11.5-14.5) Platelet Count 223 x10^3/uL (140-400) Neutrophils (%) (Auto) 65 % (31-73) Lymphocytes (%) (Auto) 23 % (24-48) Monocytes (%) (Auto) 11 % (0-9) Eosinophils (%) (Auto) 1 % (0-3) Basophils (%) (Auto) 1 % (0-3) Neutrophils # (Auto) 2.7 x10^3/uL (1.8-7.7) Lymphocytes # (Auto) 1.0 x10^3/uL (1.0-4.8) Monocytes # (Auto) 0.5 x10^3/uL (0.0-1.1) Eosinophils # (Auto) 0.0 x10^3/uL (0.0-0.7) Basophils # (Auto) 0.0 x10^3/uL (0.0-0.2) Prothrombin Time 12.3 SEC (11.7-14.0) Prothromb Time International Ratio 1.0 (0.8-1.1) Sodium Level 145 mmol/L (136-145) Potassium Level 4.5 mmol/L (3.5-5.1) Chloride Level 97 mmol/L (98-107) Carbon Dioxide Level > 45 mmol/L (21-32) Anion Gap (6-14) Blood Urea Nitrogen 25 mg/dL (8-26) Creatinine 0.9 mg/dL (0.7-1.3) Estimated GFR (Cockcroft-Gault) 80.6 BUN/Creatinine Ratio 28 (6-20) Glucose Level 99 mg/dL (70-99) Calcium Level 9.5 mg/dL (8.5-10.1) Magnesium Level 2.0 mg/dL (1.8-2.4) Total Bilirubin 0.4 mg/dL (0.2-1.0) Aspartate Amino Transf (AST/SGOT) 29 U/L (15-37) Alanine Aminotransferase (ALT/SGPT) 29 U/L (16-63) Alkaline Phosphatase 72 U/L (46-116) Troponin I Quantitative < 0.017 ng/mL (0.000-0.055) LR-Pky-O-Type Natriuretic Peptide 537 pg/mL (0-449) Total Protein 6.9 g/dL (6.4-8.2) Albumin 3.3 g/dL (3.4-5.0) Albumin/Globulin Ratio 0.9 (1.0-1.7) Lipase 69 U/L (73-393) Thyroid Stimulating Hormone (TSH) 1.426 uIU/mL (0.358-3.74) Free Thyroxine 0.91 ng/dL (0.76-1.46) Urine Collection Type U cath Urine Color Yellow Urine Clarity Clear Urine pH 5.0 (<5.0-8.0) Urine Specific [place] 1.025 (1.000-1.030) Urine Protein 30 mg/dL (NEG-TRACE) Urine Glucose (UA) Negative mg/dL (NEG) Urine Ketones (Stick) Negative mg/dL (NEG) Urine Blood Negative (NEG) Urine Nitrite Negative (NEG) Urine Bilirubin Small (NEG) Urine Urobilinogen Dipstick 1.0 mg/dL (0.2 mg/dL) Urine Leukocyte Esterase Negative (NEG) Urine RBC Occ /HPF (0-2) Urine WBC 0 /HPF (0-4) Urine Bacteria 0 /HPF (0-FEW) Urine Hyaline Casts Many /HPF Urine Mucus Mod /LPF O2 Saturation 99 % (92-99) 91 % (92-99) Arterial Blood pH 7.18 (7.35-7.45) 7.40 (7.35-7.45) Arterial Blood pCO2 at Patient Temp 147 mmHg (35-46) 72 mmHg (35-46) Arterial Blood pO2 at Patient Temp 214 mmHg (65-108) 58 mmHg (65-108) Arterial Blood HCO3 54 mmol/L (21-28) 43 mmol/L (21-28) Arterial Blood Base Excess 20 mmol/L (-3-3) 16 mmol/L (-3-3) FiO2 2.5l nc Arterial Blood pO2 (Temp corrected) mmHg Test 04/01/20 08:15 White Blood Count 5.9 x10^3/uL (4.0-11.0) Red Blood Count 3.38 x10^6/uL (4.30-5.70) Hemoglobin 10.6 g/dL (13.0-17.5) Hematocrit 32.6 % (39.0-53.0) Mean Corpuscular Volume 96 fL (79-100) Mean Corpuscular Hemoglobin 32 pg (25-35) Mean Corpuscular Hemoglobin Concent 33 g/dL (31-37) Red Cell Distribution Width 14.3 % (11.5-14.5) Platelet Count 260 x10^3/uL (140-400) Sodium Level 139 mmol/L (136-145) Potassium Level 3.9 mmol/L (3.5-5.1) Chloride Level 96 mmol/L (98-107) Carbon Dioxide Level 42 mmol/L (21-32) Anion Gap 1 (6-14) Blood Urea Nitrogen 23 mg/dL (8-26) Creatinine 0.7 mg/dL (0.7-1.3) Estimated GFR (Cockcroft-Gault) 107.7 BUN/Creatinine Ratio 33 (6-20) Glucose Level 132 mg/dL (70-99) Calcium Level 9.3 mg/dL (8.5-10.1) Total Bilirubin 0.3 mg/dL (0.2-1.0) Aspartate Amino Transf (AST/SGOT) 28 U/L (15-37) Alanine Aminotransferase (ALT/SGPT) 30 U/L (16-63) Alkaline Phosphatase 77 U/L (46-116) Total Protein 6.1 g/dL (6.4-8.2) Albumin 2.9 g/dL (3.4-5.0) Albumin/Globulin Ratio 0.9 (1.0-1.7) Laboratory Tests Test 04/01/20 08:15 White Blood Count 5.9 x10^3/uL (4.0-11.0) Red Blood Count 3.38 x10^6/uL (4.30-5.70) Hemoglobin 10.6 g/dL (13.0-17.5) Hematocrit 32.6 % (39.0-53.0) Mean Corpuscular Volume 96 fL (79-100) Mean Corpuscular Hemoglobin 32 pg (25-35) Mean Corpuscular Hemoglobin Concent 33 g/dL (31-37) Red Cell Distribution Width 14.3 % (11.5-14.5) Platelet Count 260 x10^3/uL (140-400) Sodium Level 139 mmol/L (136-145) Potassium Level 3.9 mmol/L (3.5-5.1) Chloride Level 96 mmol/L (98-107) Carbon Dioxide Level 42 mmol/L (21-32) Anion Gap 1 (6-14) Blood Urea Nitrogen 23 mg/dL (8-26) Creatinine 0.7 mg/dL (0.7-1.3) Estimated GFR (Cockcroft-Gault) 107.7 BUN/Creatinine Ratio 33 (6-20) Glucose Level 132 mg/dL (70-99) Calcium Level 9.3 mg/dL (8.5-10.1) Total Bilirubin 0.3 mg/dL (0.2-1.0) Aspartate Amino Transf (AST/SGOT) 28 U/L (15-37) Alanine Aminotransferase (ALT/SGPT) 30 U/L (16-63) Alkaline Phosphatase 77 U/L (46-116) Total Protein 6.1 g/dL (6.4-8.2) Albumin 2.9 g/dL (3.4-5.0) Albumin/Globulin Ratio 0.9 (1.0-1.7) Medications Active Scripts Medications Dose Route/Sig Max Daily Dose Days Date Category Prednisone 20 Mg Tablet 60 Mg PO DAILY 5 02/23/20 Rx Culturelle (Lactobacillus Rhamnosus Gg) 1 Each Cap.sprink 1 Cap PO BID 30 02/23/20 Rx Eliquis (Apixaban) 2.5 Mg Tablet 2.5 Mg PO BID 30 02/23/20 Rx Flomax (Tamsulosin Hcl) 0.4 Mg Cap.er.24h 0.4 Mg PO QHS 30 02/23/20 Rx Proair Hfa (Albuterol Sulfate) 8.5 Gm Hfa.aer.ad 2.5 Mg NEB PRN Q2HR PRN 30 02/23/20 Rx Doxycycline Hyclate 100 Mg Tablet 100 Mg PO BIDBFRMEAL 7 02/23/20 Rx Sotalol (Sotalol Hcl) 120 Mg Tablet 120 Mg PO BID 02/20/20 Reported Aspir 81 (Aspirin) 81 Mg Tablet.dr 81 Mg PO DAILYAC 11/03/15 Reported Advair 500-50 Diskus (Fluticasone/Salmeterol) 1 Each Disk.w.dev 1 Inh IH BID 11/03/15 Reported Alprazolam 0.5 Mg Tablet 0.5 Mg PO PRN TID PRN 11/03/15 Reported Proair Hfa Inhaler (Albuterol Sulfate) 8.5 Gm Hfa.aer.ad 2 Puff INH PRN Q4-6HRS PRN 11/03/15 Reported Impression . IMPRESSION: 1. Ubazr-go-xsffiis hypercapnic respiratory failure secondary to acute exacerbation of chronic obstructive pulmonary disease.--improved 2. End-stage chronic obstructive pulmonary disease with significant weight loss, likely secondary to chronic obstructive pulmonary disease. No definite mass seen on the chest x-ray and previous CT. 3. Previous abnormal CT chest with tiny lung nodules, 2-3 mm in diameter and no intervention required for that. 4. Chronic benzodiazepine use, may have contributed to hypercapnic respiratory failure. Plan . RECOMMENDATIONS: 1. continue supplmental oxygen to keep sats above 92%, careful not to over oxygenate 2. Nebs 3. Minimize benzodiazepines. 4. cont. PPN for nutritional support 5. PT/OT 6. continue eliquis 7. HTN per PCP DNR ok to move out of ICU from our standpoint Critical care time 30 minutes. MAURILIO ALEJANDRA MD Apr 01, 2020 09:44
--- NOTE | 2020-04-01 11:13 | NUR ---
RN received order from Dr. Ward to increase patient's Xanax to .5mg Q6h due to increasing anxiety. Order received to transfer patient to [facility] as well.
--- NOTE | 2020-04-01 11:14 | PDOC ---
[employer] PROGRESS NOTE Chief Complaint Chief Complaint Probable failure to thrive (he cannot take care of himself at home ?) Hypercapnia Respiratory failure COPD Probable severe depression (his recently) A. fib Hypertension Anemia Alcohol use Tobacco History of Present Illness History of Present Illness 04/01/2020 Patient seen and examined in the ICU He is sitting up in the chair talking to his stepson I also spoke with the stepson by phone and explained that his dad needs to go to detention and may be even long-term care eventually Chart reviewed Discussed with RN 03/31/2020 Patient seen and examined in the ICU He is on BiPAP He is receiving IV ProcalAmine at 75 cc an hour Discussed with nurse Chart reviewed Vitals/I&O Vitals/I&O: Vital Signs Date Time Temp Pulse Resp B/P (MAP) Pulse Ox O2 Delivery O2 Flow Rate FiO2 04/01/20 10:00 98.5 84 19 137/66 (89) 99 Nasal Cannula 3.0 98.5 I & O 03/31/20 03/31/20 04/01/20 15:00 23:00 07:00 Intake Total 200 ml 100 ml Output Total 300 ml 100 ml Balance -100 ml 0 ml Physical Exam General: Alert, Cooperative, No acute distress, Other (Extremely weak but somewhat improved) Heart: Regular rate, Normal S1, Normal S2, No murmurs Lungs: Other (Decreased breath sounds) Abdomen: Soft, No tenderness Extremities: No edema, Normal pulses Skin: No breakdown, No significant lesion Labs Labs: Laboratory Tests Test 04/01/20 08:15 White Blood Count 5.9 x10^3/uL (4.0-11.0) Red Blood Count 3.38 x10^6/uL (4.30-5.70) Hemoglobin 10.6 g/dL (13.0-17.5) Hematocrit 32.6 % (39.0-53.0) Mean Corpuscular Volume 96 fL (79-100) Mean Corpuscular Hemoglobin 32 pg (25-35) Mean Corpuscular Hemoglobin Concent 33 g/dL (31-37) Red Cell Distribution Width 14.3 % (11.5-14.5) Platelet Count 260 x10^3/uL (140-400) Sodium Level 139 mmol/L (136-145) Potassium Level 3.9 mmol/L (3.5-5.1) Chloride Level 96 mmol/L (98-107) Carbon Dioxide Level 42 mmol/L (21-32) Anion Gap 1 (6-14) Blood Urea Nitrogen 23 mg/dL (8-26) Creatinine 0.7 mg/dL (0.7-1.3) Estimated GFR (Cockcroft-Gault) 107.7 BUN/Creatinine Ratio 33 (6-20) Glucose Level 132 mg/dL (70-99) Calcium Level 9.3 mg/dL (8.5-10.1) Total Bilirubin 0.3 mg/dL (0.2-1.0) Aspartate Amino Transf (AST/SGOT) 28 U/L (15-37) Alanine Aminotransferase (ALT/SGPT) 30 U/L (16-63) Alkaline Phosphatase 77 U/L (46-116) Total Protein 6.1 g/dL (6.4-8.2) Albumin 2.9 g/dL (3.4-5.0) Albumin/Globulin Ratio 0.9 (1.0-1.7) Review of Systems Review of Systems: Pleasant but very weak no complaints currently Assessment and Plan Assessmemt and Plan Problems Medical Problems: (1) Altered mental status Status: Acute (2) COPD (chronic obstructive pulmonary disease) Status: Acute (3) Dehydration Status: Acute (4) Hypercapnia Status: Acute Probable failure to thrive (he cannot take care of himself at home?) Hypercapnia Respiratory failure COPD Probable severe depression (his recently) A. fib Hypertension Anemia Alcohol use Tobacco Plan Transfer to telemetry IV PPN which seems to be helping a lot! O2 per nasal cannula Home meds PT OT DVT prophylaxis Full code Appreciate subspecialist input I suspect he will need long-term care placement after discharge? For now we will plan on going to detention for couple weeks (will discharge in a day or 2) Long-term prognosis guarded Comment Review of Relevant I have reviewed the following items matheus (where applicable) has been applied. Medications: Current Medications Medications (Trade) Dose Ordered Sig/Gregory Route PRN Reason Start Time Stop Time Status Last Admin Dose Admin Albuterol/ Ipratropium (Duoneb) 3 ml RTQID NEB 03/31/20 12:00 04/01/20 08:28 Tamsulosin HCl (Flomax) 0.4 mg QHS PO 03/31/20 21:00 03/31/20 21:54 Lisinopril (Prinivil) 20 mg BID PO 03/31/20 12:00 04/01/20 08:30 Info (Anti-Coagulation Monitoring By Pharmacy) 1 each PRN DAILY PRN MC SEE COMMENTS 03/31/20 17:00 04/01/20 10:47 Justicifation of Admission Dx: Justifications for Admission: Justification of Admission Dx: Yes Respiratory Failure: Severe Vent Deficit RADHA VALLADARES III DO Apr 01, 2020 11:14
--- NOTE | 2020-04-01 12:31 | NUR ---
Patient transferred to room 252 via wheelchair. All belongings taken with patient. RN updated son, sister that patient was moved and phone number given for 2S. Report given to Jaime via phone.
--- NOTE | 2020-04-01 13:38 | NUR ---
SS following up with discharge planning. SS reviewed pt chart and discussed with pt RN. Pt is currently requiring oxygen and is on PPN. Pt having confusion. Pt was current on services with [facility], ; fax [phone]. Pt will need PT/OT prior to discharge to assess needs. SS will continue to follow for discharge planning.
--- NOTE | 2020-04-01 13:38 | PDOC ---
JUAN GONZÁLES LICENSED NUCLEAR OPERATOR 04/01/20 1337: CARDIO Progress Notes Date and Time Date of Service 04/01/20 Time of Evaluation 1310 Subjective Subjective: No Chest Pain, Other (confused ) Vitals Vitals Vital Signs Date Time Temp Pulse Resp B/P (MAP) Pulse Ox O2 Delivery O2 Flow Rate FiO2 04/01/20 12:16 97.6 80 19 182/80 (114) 92 Nasal Cannula 3.0 97.6 Weight Weight [ ] Input and Output Intake and Output Intake and Output 04/01/20 07:00 Intake Total 300 ml Output Total 400 ml Balance -100 ml Intake Oral 300 ml Output Urine Total 400 ml # Voids 5 Laboratory Labs Laboratory Tests Test 04/01/20 08:15 White Blood Count 5.9 x10^3/uL (4.0-11.0) Red Blood Count 3.38 x10^6/uL (4.30-5.70) Hemoglobin 10.6 g/dL (13.0-17.5) Hematocrit 32.6 % (39.0-53.0) Mean Corpuscular Volume 96 fL (79-100) Mean Corpuscular Hemoglobin 32 pg (25-35) Mean Corpuscular Hemoglobin Concent 33 g/dL (31-37) Red Cell Distribution Width 14.3 % (11.5-14.5) Platelet Count 260 x10^3/uL (140-400) Sodium Level 139 mmol/L (136-145) Potassium Level 3.9 mmol/L (3.5-5.1) Chloride Level 96 mmol/L (98-107) Carbon Dioxide Level 42 mmol/L (21-32) Anion Gap 1 (6-14) Blood Urea Nitrogen 23 mg/dL (8-26) Creatinine 0.7 mg/dL (0.7-1.3) Estimated GFR (Cockcroft-Gault) 107.7 BUN/Creatinine Ratio 33 (6-20) Glucose Level 132 mg/dL (70-99) Calcium Level 9.3 mg/dL (8.5-10.1) Total Bilirubin 0.3 mg/dL (0.2-1.0) Aspartate Amino Transf (AST/SGOT) 28 U/L (15-37) Alanine Aminotransferase (ALT/SGPT) 30 U/L (16-63) Alkaline Phosphatase 77 U/L (46-116) Total Protein 6.1 g/dL (6.4-8.2) Albumin 2.9 g/dL (3.4-5.0) Albumin/Globulin Ratio 0.9 (1.0-1.7) Physical Exam HEENT: Neck Supple W Full Motion Chest: Symmetric LUNGS: Clear to Auscultation Heart: RRR, no murmurs Abdomen: Soft N/T Extremities: No Edema Neurology: alert, confused, other (hallucinating ) Assessment Assessment 1. Unresponsiveness, encephalopathy 2. Acute on chronic respiratory failure with AE COPD 3. PAFIB; SR/SB; HR in 40's upon arrival- was on Sotalol 120 BID for rhythm maintenance. QTc 405. Recent echo with preserved LV systolic function. No significant valvular anomalies. Now SR in the 80's 4. Accelerated hypertension; labile 5. 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 FTT Recommendations Resume Sotalol tomorrow at 120mg daily as CrCl 41. Continue lisinopril Add Norvasc if BP remains labile Eliquis for stroke prevention Lung optimization as per pulm Supportive care Justicifation of Admission Dx: Justifications for Admission: Justification of Admission Dx: Yes Respiratory Failure: Severe Vent Deficit JIMI RITCHIE MD 04/01/20 1727: CARDIO Progress Notes Assessment Assessment Patient seen and examined I agree with our nurse practitioners assessment and plan. Unresponsiveness. Work up as above. Acute on chronic respiratory failure with AE COPD PAFIB; SR/SB; HR in 40's upon arrival- was on Sotalol 120 BID for rhythm maintenance. QTc 405. Recent echo with preserved LV systolic function. Sotalol has been held. Now sinus rhythm. Resume lower dose sotalol tomorrow. Accelerated hypertension; labile but improving. Anxiety, depression JUAN GONZÁLES APRN Apr 01, 2020 13:37 JIMI RITCHIE MD Apr 01, 2020 17:27
--- NOTE | 2020-04-01 14:20 | NUR ---
Recvd patient transfer to room 252 from ICU. Patient oriented to room, unit routines, and call light within reach. Patient is A/O X 2 but forgetful. Bed alarm set and reminder given to call for assistance
[2020-04-01] MEDS: TAMSULOSIN 0.4 MG CAP.ER.24H. PO SCH (19:46)
[2020-04-02] MEDS: ALPRAZolam 0.25 MG TABLET PO PRN ×3 (02:20→20:32)
[2020-04-02 02:24] VITALS: BP 149/70
[2020-04-02 06:00] VITALS: BP 109/59
[2020-04-02] MEDS: IPRATRPIUM/ALBUTEROL 0.5/2.5MG 3 ML NEBU. NEB SCH ×4 (07:33→19:41)
[2020-04-02] MEDS: LISINOPRIL 20 MG TABLET PO SCH ×2 (08:58→20:31)
[2020-04-02] MEDS: APIXABAN 2.5 MG TABLET. PO SCH ×2 (08:58→20:31)
[2020-04-02] MEDS: LACTOBACILLUS RHAMNOSUS GG 1 CAPSULE. PO SCH ×2 (08:58→20:31)
[2020-04-02] MEDS: ASPIRIN ENTERIC COATED 81 MG TABLET.DR. PO SCH (08:58)
[2020-04-02] MEDS: SOTALOL 80 MG TABLET. PO SCH ×2 (09:00→20:29)
[2020-04-02] MEDS: AMINO AC 3%/ELECTROLYTE/GLYCER 1,000 ML IV SCH ×2 (09:07→22:20)
--- NOTE | 2020-04-02 09:54 | PDOC ---
CARDIO Progress Notes Date and Time Date of Service 04/02/2020 Time of Evaluation 0920 Subjective Subjective: No Chest Pain, No shortness of breath, No Palpitations Vitals Vitals Vital Signs Date Time Temp Pulse Resp B/P (MAP) Pulse Ox O2 Delivery O2 Flow Rate FiO2 04/02/20 08:58 75 109/59 04/02/20 07:33 98 Nasal Cannula 3.0 04/02/20 06:00 97.8 22 97.8 Weight Weight [ ] Input and Output Intake and Output Intake and Output 04/02/20 06:59 Intake Total 120 ml Output Total 1400 ml Balance -1280 ml Intake Oral 120 ml Output Urine Total 1400 ml # Voids 8 # Bowel Movements 2 Physical Exam HEENT: Neck Supple W Full Motion Chest: Symmetric LUNGS: Clear to Auscultation Heart: RRR (sinus tach), no murmurs Abdomen: Soft N/T Extremities: No Edema Neurology: alert, confused Assessment Assessment 1. Unresponsiveness, encephalopathy, more awake today 2. Acute on chronic respiratory failure with AECOPD 3. PAFIB; mary episodes before due to higher dose of sotalol. Presently sinus tach with intermittent flutter 4. Accelerated hypertension; controlled 5. 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 FTT Recommendations Resume Sotalol today lower dose at 120mg daily as CrCl 41. Continue lisinopril and may decrease if BP is consitently low marginal Add Norvasc if BP remains labile Eliquis for stroke prevention Lung optimization as per pulm Supportive care Justicifation of Admission Dx: Justifications for Admission: Justification of Admission Dx: Yes Respiratory Failure: Severe Vent Deficit RICH WU INSURANCE SOLICITOR Apr 02, 2020 09:53
--- NOTE | 2020-04-02 10:19 | PDOC ---
PULMONARY PROGRESS NOTES Subjective awake and alert up on EOB working with physical therapy today, reports SOB on exertion Vitals Vital Signs Date Time Temp Pulse Resp B/P (MAP) Pulse Ox O2 Delivery O2 Flow Rate FiO2 04/02/20 08:58 75 109/59 04/02/20 07:33 98 Nasal Cannula 3.0 04/02/20 06:00 97.8 22 97.8 ROS: No Nausea, No Chest Pain, No Abdominal Pain, No Increase Cough General: Alert Lungs: Other (Decreased breath sounds) Cardiovascular: S1, S2 Abdomen: Soft, Non-tender Neuro Exam: Alert, Oriented Extremities: No Edema Skin: Warm, Dry Labs Laboratory Tests Test 04/01/20 08:15 White Blood Count 5.9 x10^3/uL (4.0-11.0) Red Blood Count 3.38 x10^6/uL (4.30-5.70) Hemoglobin 10.6 g/dL (13.0-17.5) Hematocrit 32.6 % (39.0-53.0) Mean Corpuscular Volume 96 fL (79-100) Mean Corpuscular Hemoglobin 32 pg (25-35) Mean Corpuscular Hemoglobin Concent 33 g/dL (31-37) Red Cell Distribution Width 14.3 % (11.5-14.5) Platelet Count 260 x10^3/uL (140-400) Sodium Level 139 mmol/L (136-145) Potassium Level 3.9 mmol/L (3.5-5.1) Chloride Level 96 mmol/L (98-107) Carbon Dioxide Level 42 mmol/L (21-32) Anion Gap 1 (6-14) Blood Urea Nitrogen 23 mg/dL (8-26) Creatinine 0.7 mg/dL (0.7-1.3) Estimated GFR (Cockcroft-Gault) 107.7 BUN/Creatinine Ratio 33 (6-20) Glucose Level 132 mg/dL (70-99) Calcium Level 9.3 mg/dL (8.5-10.1) Total Bilirubin 0.3 mg/dL (0.2-1.0) Aspartate Amino Transf (AST/SGOT) 28 U/L (15-37) Alanine Aminotransferase (ALT/SGPT) 30 U/L (16-63) Alkaline Phosphatase 77 U/L (46-116) Total Protein 6.1 g/dL (6.4-8.2) Albumin 2.9 g/dL (3.4-5.0) Albumin/Globulin Ratio 0.9 (1.0-1.7) Medications Active Scripts Medications Dose Route/Sig Max Daily Dose Days Date Category Prednisone 20 Mg Tablet 60 Mg PO DAILY 5 02/23/20 Rx Culturelle (Lactobacillus Rhamnosus Gg) 1 Each Cap.sprink 1 Cap PO BID 30 02/23/20 Rx Eliquis (Apixaban) 2.5 Mg Tablet 2.5 Mg PO BID 30 02/23/20 Rx Flomax (Tamsulosin Hcl) 0.4 Mg Cap.er.24h 0.4 Mg PO QHS 30 02/23/20 Rx Proair Hfa (Albuterol Sulfate) 8.5 Gm Hfa.aer.ad 2.5 Mg NEB PRN Q2HR PRN 30 02/23/20 Rx Doxycycline Hyclate 100 Mg Tablet 100 Mg PO BIDBFRMEAL 7 02/23/20 Rx Sotalol (Sotalol Hcl) 120 Mg Tablet 120 Mg PO BID 02/20/20 Reported Aspir 81 (Aspirin) 81 Mg Tablet.dr 81 Mg PO DAILYAC 11/03/15 Reported Advair 500-50 Diskus (Fluticasone/Salmeterol) 1 Each Disk.w.dev 1 Inh IH BID 11/03/15 Reported Alprazolam 0.5 Mg Tablet 0.5 Mg PO PRN TID PRN 11/03/15 Reported Proair Hfa Inhaler (Albuterol Sulfate) 8.5 Gm Hfa.aer.ad 2 Puff INH PRN Q4-6HRS PRN 11/03/15 Reported Impression . IMPRESSION: 1. Rmnyx-al-muijnmi hypercapnic respiratory failure secondary to acute exacerbation of chronic obstructive pulmonary disease.--improved 2. End-stage chronic obstructive pulmonary disease with significant weight loss, likely secondary to chronic obstructive pulmonary disease. No definite mass seen on the chest x-ray and previous CT. 3. Previous abnormal CT chest with tiny lung nodules, 2-3 mm in diameter and no intervention required for that. 4. Chronic benzodiazepine use, may have contributed to hypercapnic respiratory failure. Plan . RECOMMENDATIONS: 1. Continue supplmental oxygen to keep sats above 92%, careful not to over oxygenate 2. Nebs 3. Minimize benzodiazepines. 4. cont. PPN for nutritional support 5. PT/OT 6. continue eliquis 7. HTN per PCP 8. would be an appropriate patient for home hospice. d/w patient and RN DNR MAURILIO ALEJANDRA MD Apr 02, 2020 10:19
--- NOTE | 2020-04-02 10:19 | EKG ---
[facility] [address] [place] [address] Test Date: 2020-04-02 Test Time: 10:17:58 Pat Name: JERROD WHIPPLE Department: Room: 252 1 Gender: M Kitchen Operator: DOROTHY : 1935 Requested By: RICH WU Order Number: [id number] Reading MD: Miguel Echols MD Measurements Intervals [place] Rate: 102 P: 90 WI: 160 QRS: 38 QRSD: 88 T: 82 QT: 310 QTc: 408 Interpretive Statements SINUS TACHYCARDIA PAC'S NON-SPECIFIC ST/T CHANGES Electronically Signed On 04-08-2020 11:05:27 CDT by Miguel Echols MD
--- NOTE | 2020-04-02 10:33 | PDOC ---
[facility] PROGRESS NOTE Chief Complaint Chief Complaint Probable failure to thrive (he cannot take care of himself at home ?) Hypercapnia Respiratory failure COPD Probable severe depression (his recently) A. fib Hypertension Anemia Alcohol use Tobacco History of Present Illness History of Present Illness 04/02/2020 Patient seen and examined He is coughing a lot this morning but overall still improving Still on PPN Discussed with RN Discussed with case management We will see how he does with physical therapy and Occupational Therapy then luisana ntually he will need group home or long-term care 04/01/2020 Patient seen and examined in the ICU He is sitting up in the chair talking to his stepson I also spoke with the stepson by phone and explained that his dad needs to go to group home and may be even long-term care eventually Chart reviewed Discussed with RN 03/31/2020 Patient seen and examined in the ICU He is on BiPAP He is receiving IV ProcalAmine at 75 cc an hour Discussed with nurse Chart reviewed Vitals/I&O Vitals/I&O: Vital Signs Date Time Temp Pulse Resp B/P (MAP) Pulse Ox O2 Delivery O2 Flow Rate FiO2 04/02/20 08:58 75 109/59 04/02/20 07:33 98 Nasal Cannula 3.0 04/02/20 06:00 97.8 22 97.8 I & O 04/01/20 04/01/20 04/02/20 14:59 22:59 06:59 Intake Total 120 ml Output Total 300 ml 525 ml 575 ml Balance -300 ml -405 ml -575 ml Physical Exam General: Alert, Cooperative, No acute distress, Other (Extremely weak but somewhat improved) Heart: Regular rate, Normal S1, Normal S2, No murmurs Lungs: Other (Decreased breath sounds) Abdomen: Soft, No tenderness Extremities: No edema, Normal pulses Skin: No breakdown, No significant lesion Assessment and Plan Assessmemt and Plan Problems Medical Problems: (1) Altered mental status Status: Acute (2) COPD (chronic obstructive pulmonary disease) Status: Acute (3) Dehydration Status: Acute (4) Hypercapnia Status: Acute Probable failure to thrive (he cannot take care of himself at home?) Hypercapnia Respiratory failure COPD Probable severe depression (his recently) A. fib Hypertension Anemia Alcohol use Tobacco Plan Telemetry IV PPN which seems to be helping a lot! O2 per nasal cannula Home meds PT OT DVT prophylaxis Full code Appreciate subspecialist input I suspect he will need long-term care placement after discharge? For now we will plan on going to group home for couple weeks (will discharge in a day or 2) Long-term prognosis guarded Comment Review of Relevant I have reviewed the following items matheus (where applicable) has been applied. Medications: Current Medications Medications (Trade) Dose Ordered Sig/Gregory Route PRN Reason Start Time Stop Time Status Last Admin Dose Admin Alprazolam (Xanax) 0.5 mg PRN Q6HRS PRN PO ANXIETY / AGITATION 04/01/20 11:15 04/02/20 08:58 Justicifation of Admission Dx: Justifications for Admission: Justification of Admission Dx: Yes Respiratory Failure: Severe Vent Deficit RADHA VALLADARES III DO Apr 02, 2020 10:33
[2020-04-02 10:41] VITALS: BP 110/54
--- NOTE | 2020-04-02 11:56 | NUR ---
SS following for discharge planning. SS reviewed pt chart and discussed with pt RN. Pt is currently requiring oxygen and on PPN. Pt having some confusion. PT/OT ordered and recommended fpc unit. Pt COVID19 test pending. SS spoke with pt's son, Vivek Bridges, , and discussed discharge planning and fpc unit. Pt's son agreeable to fpc unit and requested [facility], ; fax [phone]. SS phoned and faxed referral to [facility]. SS will await acceptance decision and will proceed accordingly.
[2020-04-02 15:00] VITALS: BP 114/52
[2020-04-02 19:32] VITALS: BP 126/60
[2020-04-02] MEDS: TAMSULOSIN 0.4 MG CAP.ER.24H. PO SCH (20:30)
[2020-04-02 23:26] VITALS: BP 97/49
[2020-04-03 03:41] VITALS: BP 89/46
--- NOTE | 2020-04-03 05:52 | EKG ---
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
[2020-04-03 07:15] VITALS: BP 92/53
[2020-04-03] MEDS: IPRATRPIUM/ALBUTEROL 0.5/2.5MG 3 ML NEBU. NEB SCH ×4 (07:27→19:50)
[2020-04-03] MEDS: LISINOPRIL 20 MG TABLET PO SCH ×2 (08:41→21:11)
[2020-04-03] MEDS: LACTOBACILLUS RHAMNOSUS GG 1 CAPSULE. PO SCH ×2 (08:42→21:11)
[2020-04-03] MEDS: SOTALOL 80 MG TABLET. PO SCH (08:42)
[2020-04-03] MEDS: APIXABAN 2.5 MG TABLET. PO SCH ×2 (08:42→21:10)
[2020-04-03] MEDS: ASPIRIN ENTERIC COATED 81 MG TABLET.DR. PO SCH (08:42)
--- NOTE | 2020-04-03 10:58 | PDOC ---
PULMONARY PROGRESS NOTES Subjective Remains on N/C Denies any cough, reports improvement in his SOB today Vitals Vital Signs Date Time Temp Pulse Resp B/P (MAP) Pulse Ox O2 Delivery O2 Flow Rate FiO2 04/03/20 08:42 81 92/53 04/03/20 08:13 Nasal Cannula 3.0 04/03/20 07:29 93 04/03/20 07:15 97.9 18 97.9 ROS: No Nausea, No Chest Pain, No Abdominal Pain, No Increase Cough General: Alert Lungs: Other (Decreased breath sounds) Cardiovascular: Other (Afib ) Abdomen: Soft, Non-tender Neuro Exam: Alert, Oriented Extremities: No Edema Skin: Warm, Dry Labs Laboratory Tests Test 04/02/20 17:15 Coronavirus (COVID-19)(PCR) Not detected (NOT DETECT.) Laboratory Tests Test 04/02/20 17:15 Coronavirus (COVID-19)(PCR) Not detected (NOT DETECT.) Medications Active Scripts Medications Dose Route/Sig Max Daily Dose Days Date Category Prednisone 20 Mg Tablet 60 Mg PO DAILY 5 02/23/20 Rx Culturelle (Lactobacillus Rhamnosus Gg) 1 Each Cap.sprink 1 Cap PO BID 30 02/23/20 Rx Eliquis (Apixaban) 2.5 Mg Tablet 2.5 Mg PO BID 30 02/23/20 Rx Flomax (Tamsulosin Hcl) 0.4 Mg Cap.er.24h 0.4 Mg PO QHS 30 02/23/20 Rx Proair Hfa (Albuterol Sulfate) 8.5 Gm Hfa.aer.ad 2.5 Mg NEB PRN Q2HR PRN 30 02/23/20 Rx Doxycycline Hyclate 100 Mg Tablet 100 Mg PO BIDBFRMEAL 7 02/23/20 Rx Sotalol (Sotalol Hcl) 120 Mg Tablet 120 Mg PO BID 02/20/20 Reported Aspir 81 (Aspirin) 81 Mg Tablet.dr 81 Mg PO DAILYAC 11/03/15 Reported Advair 500-50 Diskus (Fluticasone/Salmeterol) 1 Each Disk.w.dev 1 Inh IH BID 11/03/15 Reported Alprazolam 0.5 Mg Tablet 0.5 Mg PO PRN TID PRN 11/03/15 Reported Proair Hfa Inhaler (Albuterol Sulfate) 8.5 Gm Hfa.aer.ad 2 Puff INH PRN Q4-6HRS PRN 11/03/15 Reported Impression . IMPRESSION: 1. Abyar-[id number] hypercapnic respiratory failure secondary to acute exacerbation of chronic obstructive pulmonary disease.--improved 2. End-stage chronic obstructive pulmonary disease with significant weight loss, likely secondary to chronic obstructive pulmonary disease. No definite mass seen on the chest x-ray and previous CT. 3. Previous abnormal CT chest with tiny lung nodules, 2-3 mm in diameter and no intervention required for that. 4. Chronic benzodiazepine use, may have contributed to hypercapnic respiratory failure. 5. Afib Plan . RECOMMENDATIONS: 1. Continue supplmental oxygen to keep sats above 92%, careful not to over oxygenate 2. Nebs 3. Minimize benzodiazepines. 4. Cont. PPN for nutritional support 5. PT/OT 6. continue eliquis 7. HTN per PCP 8. would be an appropriate patient for home hospice. d/w patient and RN DNR MAURILIO ALEJANDRA MD Apr 03, 2020 10:58
[2020-04-03 11:30] VITALS: BP 99/54
[2020-04-03] MEDS: AMINO AC 3%/ELECTROLYTE/GLYCER 1,000 ML IV SCH (13:06)
--- NOTE | 2020-04-03 13:31 | NUR ---
Bedside Swallow Evaluation. Bedside swallow evaluation completed. Please refer to full report in intervention section. IMPRESSIONS: Functional swallow. Abnormal phonation concerning for reduced airway closure but CXR w/o active cardioplumonary concern at adm and no overt s/s at bedside. Would modify diet to dysphagia II d/t pt's missing lower denture and discussion w/ pt. Pt also continues to report thick "phlegm" that 'sticks' outside of meals, which he attributes to sinus drainage & allergies. Today's evaluation generally consistent January 2020 bedside swallow evaluation. Recommendations: Dysphagia II diet, thin liquids, straws for Ensure, pills in applesauce, general swallow precautions. ST f/u for dysphagia. Nutrition consult.
--- NOTE | 2020-04-03 13:35 | PDOC ---
PROGRESS NOTES Subjective Subjective Patient seen and examined Objective Objective Vital Signs Date Time Temp Pulse Resp B/P (MAP) Pulse Ox O2 Delivery O2 Flow Rate FiO2 04/03/20 11:34 Nasal Cannula 3.0 04/03/20 11:30 98.2 70 16 99/54 (69) 98 98.2 Intake and Output 04/03/20 07:00 Intake Total 1100 ml Output Total 680 ml Balance 420 ml Intake Oral 100 ml IV Total 1000 ml Output Urine Total 680 ml Physical Exam Abdomen: Normal bowel sounds Heart: Regular rate General: mild distress Lungs: Other (Mildly decreased breath sounds) Assessment Assessment Problems Medical Problems: (1) Altered mental status Status: Acute (2) COPD (chronic obstructive pulmonary disease) Status: Acute (3) Dehydration Status: Acute (4) Hypercapnia Status: Acute Assessment 1. Unresponsiveness, mildly improved today. Encephalopathy, more awake today 2. Acute on chronic respiratory failure with AECOPD. Also mildly improved. 3. PAFIB; mary episodes before due to higher dose of sotalol. Lower dose sotalol at 120 mg a day was restarted yesterday. Continue to monitor. 4. Accelerated hypertension; controlled Comment Review of Relevant I have reviewed the following items matheus (where applicable) has been applied. Labs Laboratory Tests Test 04/02/20 17:15 Coronavirus (COVID-19)(PCR) Not detected (NOT DETECT.) Laboratory Tests Test 04/02/20 17:15 Coronavirus (COVID-19)(PCR) Not detected (NOT DETECT.) Medications Current Medications Sodium Chloride 1,000 ml @ 1,000 mls/hr 1X ONCE IV Last administered on 03/30/20at 14:55; Start 03/30/20 at 14:45; Stop 03/30/20 at 15:44; Status DC Methylprednisolone Sodium Succinate (SOLU-Medrol 125MG VIAL) 125 mg 1X ONCE IV Last administered on 03/30/20at 17:27; Start 03/30/20 at 17:30; Stop 03/30/20 at 17:31; Status DC Amino Acids/ Glycerin/ Electrolytes 1,000 ml @ 75 mls/hr [id number] IV Last administered on 04/03/20at 13:06; Start 03/30/20 at 21:30 Hydralazine HCl (Apresoline Inj) 10 mg PRN Q2HR PRN IVP ELEVATED BP, SEE COMMENTS Last administered on 04/01/20 04:04; Start 03/30/20 at 23:00 Alprazolam (Xanax) 0.25 mg PRN Q8HRS PRN PO ANXIETY / AGITATION Last administered on 04/01/20 08:29; Start 03/31/20 at 07:00; Stop 04/01/20 at 11:13; Status DC Albuterol/ Ipratropium (Duoneb) 3 ml RTQID NEB Last administered on 04/03/20 11:33; Start 03/31/20 at 12:00 Apixaban (Eliquis) 2.5 mg BID PO Last administered on 04/03/20 08:42; Start 03/31/20 at 10:00 Aspirin (Ecotrin) 81 mg DAILYAC PO Last administered on 04/03/20 08:42; Start 03/31/20 at 10:00 Lactobacillus Rhamnosus (Culturelle) 1 cap BID PO Last administered on 04/03/20 08:42; Start 03/31/20 at 10:00 Tamsulosin HCl (Flomax) 0.4 mg QHS PO Last administered on 04/02/20 20:30; Start 03/31/20 at 21:00 Sotalol HCl (Betapace) 120 mg BID PO ; Start 03/31/20 at 10:00; Stop 03/31/20 at 10:56; Status DC Lisinopril (Prinivil) 20 mg BID PO Last administered on 04/02/20 20:31; Start 03/31/20 at 12:00 Info (Anti-Coagulation Monitoring By Pharmacy) 1 each PRN DAILY PRN MC SEE COMMENTS Last administered on 04/01/20 10:47; Start 03/31/20 at 17:00 Alprazolam (Xanax) 0.5 mg PRN Q6HRS PRN PO ANXIETY / AGITATION Last administered on 04/02/20 20:32; Start 04/01/20 at 11:15 Sotalol HCl (Betapace) 120 mg DAILY PO Last administered on 04/03/20 08:42; Start 04/02/20 at 09:00 Active Scripts Active Prednisone 20 Mg Tablet 60 Mg PO DAILY 5 Days Culturelle (Lactobacillus Rhamnosus Gg) 1 Each Cap.sprink 1 Cap PO BID 30 Days Eliquis (Apixaban) 2.5 Mg Tablet 2.5 Mg PO BID 30 Days Flomax (Tamsulosin Hcl) 0.4 Mg Cap.er.24h 0.4 Mg PO QHS 30 Days Proair Hfa (Albuterol Sulfate) 8.5 Gm Hfa.aer.ad 2.5 Mg NEB PRN Q2HR PRN 30 Days Doxycycline Hyclate 100 Mg Tablet 100 Mg PO BIDBFRMEAL 7 Days Reported Sotalol (Sotalol Hcl) 120 Mg Tablet 120 Mg PO BID Aspir 81 (Aspirin) 81 Mg Tablet.dr 81 Mg PO DAILYAC Advair 500-50 Diskus (Fluticasone/Salmeterol) 1 Each Disk.w.dev 1 Inh IH BID Alprazolam 0.5 Mg Tablet 0.5 Mg PO PRN TID PRN Proair Hfa Inhaler (Albuterol Sulfate) 8.5 Gm Hfa.aer.ad 2 Puff INH PRN Q4-6HRS PRN Vitals/I & O Vital Sign - Last 24 Hours 04/02/20 04/02/20 04/02/20 04/02/20 15:00 15:31 19:32 19:42 Temp 97.9 97.9 97.9 97.9 Pulse 96 99 Resp 22 18 B/P (MAP) 114/52 (72) 126/60 (82) Pulse Ox 98 97 95 96 O2 Delivery Nasal Cannula Nasal Cannula Nasal Cannula Nasal Cannula O2 Flow Rate 3.0 3.0 3.0 3.0 04/02/20 04/02/20 04/02/20 04/02/20 20:00 20:01 20:29 20:31 Pulse 110 110 B/P (MAP) 126/60 126/60 O2 Delivery Nasal Cannula O2 Flow Rate 3.0 3.0 04/02/20 04/03/20 04/03/20 04/03/20 23:26 03:41 07:15 07:29 Temp 98.1 98.0 97.9 98.1 98.0 97.9 Pulse 66 71 81 Resp 16 16 18 B/P (MAP) 97/49 (65) 89/46 (60) 92/53 (66) Pulse Ox 97 90 93 93 O2 Delivery Nasal Cannula Nasal Cannula Nasal Cannula Nasal Cannula O2 Flow Rate 3.0 3.0 3.0 3.0 04/03/20 04/03/20 04/03/20 04/03/20 08:13 08:13 08:41 08:42 Pulse 81 81 B/P (MAP) 92/53 92/53 O2 Delivery Nasal Cannula O2 Flow Rate 3.0 3.0 04/03/20 04/03/20 11:30 11:34 Temp 98.2 98.2 Pulse 70 Resp 16 B/P (MAP) 99/54 (69) Pulse Ox 98 O2 Delivery Nasal Cannula Nasal Cannula O2 Flow Rate 3.0 3.0 Intake and Output 04/02/20 04/02/20 04/03/20 15:00 23:00 07:00 Intake Total 100 ml 1000 ml 0 ml Output Total 605 ml 75 ml Balance 100 ml 395 ml -75 ml Nutrition Consultation Dietary Evaluation: Recommendations by RD: Dietary education by RD, Increase Calorie Intake, Protein supplementation, PPN/TPN Comments: Continue w/regular diet, honor food preferences, and provide snacks as requested Continue w/Ensure TID Continue w/PPN to supplement poor PO intake Expected Outcomes/Goals: PO intake to meet >75% est needs Malnutrition Findings: Food and Nutrition Intake (Mod: <75% est energy req 7days Body Fat Depletion (Non Severe: Mod to Severe Weight Status: Underweight JIMI RITCHIE MD Apr 03, 2020 13:35
[2020-04-03 15:24] VITALS: BP 119/56
--- NOTE | 2020-04-03 16:04 | PDOC ---
Nutrition Consultation Dietary Evaluation: Recommendations by RD: Dietary education by RD, Increase Calorie Intake, Protein supplementation, PPN/TPN Comments: Continue w/regular diet, honor food preferences, and provide snacks as requested Continue w/Ensure TID Continue w/PPN to supplement poor PO intake Expected Outcomes/Goals: PO intake to meet >75% est needs Malnutrition Findings: Food and Nutrition Intake (Mod: <75% est energy req 7days Body Fat Depletion (Non Severe: Mod to Severe Weight Status: Underweight GENERAL General: Patient examined chart reviewed today is hospital day 5 for this patient with end-stage COPD, atrial fibrillation, severe protein calorie malnutrition adm itted with acute hypoxic and hypercarbic respiratory failure in the setting of marked dehydration and severe clinical decline. He has done well with supportive treatment and today sitting up tells me that he will drink his Ensure if it has a scoop of ice cream in it. He tells me that his has and he is not sure how he will be able to take care of himself. We will need a robust discharge plan to prevent readmission. Appreciate subspecialty support. We will continue current management otherwise. Will check a CT head for completeness sake though his encephalopathy seems to be clearing with rehydration and nutrition. Total time today is 30 minutes with greater than 50% in counseling and coordination of care most of which in discussion with patient and nursing. Problems: (1) Protein-calorie malnutrition, severe (2) COPD (chronic obstructive pulmonary disease) (3) Dehydration (4) Hypercapnia (5) Altered mental status VITAL SIGNS Vital Signs/I&O: Vital Signs Date Time Temp Pulse Resp B/P (MAP) Pulse Ox O2 Delivery O2 Flow Rate FiO2 04/03/20 15:24 98.0 67 16 119/56 (77) 96 Nasal Cannula 3.0 98.0 I & O 04/02/20 04/02/20 04/03/20 15:00 23:00 07:00 Intake Total 100 ml 1000 ml 0 ml Output Total 605 ml 75 ml Balance 100 ml 395 ml -75 ml In general the patient is pleasant interactive appears to be at baseline orientation in no acute distress HEENT exam is unremarkable Neck is soft and supple no adenopathy or thyromegaly noted Chest bilateral equal air entry though diminished throughout Heart S1-S2 normal regular rate and rhythm no murmurs or gallops are noted Abdomen soft nontender nondistended no masses organomegaly noted Extremity exam is unremarkable for acute abnormality ALLERGIES Allergies: Allergies Coded Allergies Type Severity Reaction Last Updated Verified pneumococcal vaccine Adverse Reaction Intermediate upper arm red and swollen after vaccine 11/03/15 Yes MEDS Medications: Current Medications Medications (Trade) Dose Ordered Sig/Gregory Start Time Stop Time Status Last Admin Dose Admin Albuterol/ Ipratropium (Duoneb) 3 ml RTQID 03/31/20 12:00 04/03/20 11:33 Alprazolam (Xanax) 0.5 mg PRN Q6HRS PRN 04/01/20 11:15 04/02/20 20:32 Amino Acids/ Glycerin/ Electrolytes 1,000 ml @ 75 mls/hr [id number] 03/30/20 21:30 04/03/20 13:06 Apixaban (Eliquis) 2.5 mg BID 03/31/20 10:00 04/03/20 08:42 Aspirin (Ecotrin) 81 mg DAILYAC 03/31/20 10:00 04/03/20 08:42 Hydralazine HCl (Apresoline Inj) 10 mg PRN Q2HR PRN 03/30/20 23:00 04/01/20 04:04 Info (Anti-Coagulation Monitoring By Pharmacy) 1 each PRN DAILY PRN 03/31/20 17:00 04/01/20 10:47 Lactobacillus Rhamnosus (Culturelle) 1 cap BID 03/31/20 10:00 04/03/20 08:42 Lisinopril (Prinivil) 20 mg BID 03/31/20 12:00 04/02/20 20:31 Methylprednisolone Sodium Succinate (SOLU-Medrol 125MG VIAL) 125 mg 1X ONCE 03/30/20 17:30 03/30/20 17:31 DC 03/30/20 17:27 Sodium Chloride 1,000 ml @ 1,000 mls/hr 1X ONCE 03/30/20 14:45 03/30/20 15:44 DC 03/30/20 14:55 Sotalol HCl (Betapace) 120 mg DAILY 04/02/20 09:00 04/03/20 08:42 Tamsulosin HCl (Flomax) 0.4 mg QHS 03/31/20 21:00 04/02/20 20:30 LAB Lab: Laboratory Tests Test 04/02/20 17:15 Coronavirus (COVID-19)(PCR) Not detected (NOT DETECT.) IMAGING Imaging: PATIENT: JERROD WHIPPLE ACCOUNT: [id number] : 1935 LOCATION: ER AGE: 84 SEX: M EXAM STATUS: REG ER ORD. PHYSICIAN: DAVIN CASTELLANOS DO REASON: soa PROCEDURE: CHEST AP ONLY EXAM: CHEST AP ONLY INDICATION: Reason: soa / Spl. Instructions: / History: . TECHNIQUE: Single view COMPARISON: 02/19/2020 FINDINGS: The heart size is normal. Great vessels show aortic calcification and mild tortuosity, similar to prior. There is no hilar or mediastinal mass. The lungs show emphysema but no focal infiltrates. There is no pleural effusion or pneumothorax. There are no significant osseous abnormalities. IMPRESSION: Emphysema with no radiographic evidence of superimposed active cardiopulmonary disease. Electronically signed by: Bonnie Vincent MD (03/30/2020 5:12 PM) ASSESSMENT & PLAN A&P Plan as noted above This note was created using [employer]! 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 CALVIN LEIGH MD Apr 03, 2020 16:04
--- NOTE | 2020-04-03 16:51 | RAD ---
Exam: CT head INDICATION: Acute metabolic encephalopathy TECHNIQUE: Sequential axial images through the head were obtained without the administration of IV contrast. Comparisons: None FINDINGS: No focal parenchymal lesion or hemorrhage is identified. There is no midline shift or sulcal effacement. Area of hypodensity within the left occipital lobe. Additionally hypodensities within the periventricular white matter likely representing small vessel schema change. Mathews-white distinction is preserved. The ventricular system is within normal limits without compression hydrocephalus. The basal cisterns are well maintained. The visualized portions of the paranasal sinuses and mastoid air cells are well-pneumatized. No acute fractures. IMPRESSION: Area of hypodensity in the left occipital lobe, may represent area of subacute versus chronic ischemia. Recommend correlation with MRI. Exposure: One or more of the following in the visualized dose reduction techniques were utilized for this examination: 1. Automated exposure control 2. Adjustment of the MA and/or KV according to patient size Use of iterative of reconstructive technique Electronically signed by: Lisa Peña MD (04/03/2020 4:48 PM) [id number]
[2020-04-03 19:19] VITALS: BP 116/56
--- NOTE | 2020-04-03 20:32 | PDOC1 ---
History & Psych Evaluation Date of Admission: Date of Admission DATE: 04/03/20 TIME: 20:20 Source: Source: Caregiver, Chart review, Patient Identification: Identification 84-year-old gentleman with history of anxiety. Chief Complaint: Chief Complaint Anxiety, confusion. History of Present Illness: HPI: He is a elderly gentleman admitted with exacerbation of COPD and failure to thrive. Upon interview, he appears confused and disoriented. Having difficulty following questions and leads. States, he has history of anxiety and takes Xanax twice a day. Xanax was likely exacerbated patient's COPD. Additionally, reports sad mood and bereavement as unfortunately due to stroke a day ago. Denies prior history of major depressive disorder. Denies suicidal or homicidal thoughts intent or plan. Denies auditory or visual hallucinations. No evidence of kelechi or hypomania. Denies recurrent suicidal ideation or previous suicidal attempt. Past Psychiatric History: Denies past psychiatric history. Denies history of hospital admissions for mental health reason Past Medical History: (1) Altered mental status Status: Acute (2) COPD (chronic obstructive pulmonary disease) Status: Acute (3) Dehydration Status: Acute (4) Hypercapnia Family History: Psychiatric family history is not known to the patient. Social History: Social History: recently. x3. He has children. He was living with his . Denies legal issues. Current Medications: Current Medications Current Medications Medications (Trade) Dose Ordered Sig/Gregory Start Time Stop Time Status Last Admin Dose Admin Albuterol/ Ipratropium (Duoneb) 3 ml RTQID 03/31/20 12:00 04/03/20 19:50 3 ML Alprazolam (Xanax) 0.5 mg PRN Q6HRS PRN 04/01/20 11:15 04/02/20 20:32 0.5 MG Amino Acids/ Glycerin/ Electrolytes 1,000 ml @ 75 mls/hr [id number] 03/30/20 21:30 04/03/20 13:06 75 MLS/HR Apixaban (Eliquis) 2.5 mg BID 03/31/20 10:00 04/03/20 08:42 2.5 MG Aspirin (Ecotrin) 81 mg DAILYAC 03/31/20 10:00 04/03/20 08:42 81 MG Hydralazine HCl (Apresoline Inj) 10 mg PRN Q2HR PRN 03/30/20 23:00 04/01/20 04:04 10 MG Info (Anti-Coagulation Monitoring By Pharmacy) 1 each PRN DAILY PRN 03/31/20 17:00 04/01/20 10:47 1 EACH Lactobacillus Rhamnosus (Culturelle) 1 cap BID 03/31/20 10:00 04/03/20 08:42 1 CAP Lisinopril (Prinivil) 20 mg BID 03/31/20 12:00 04/02/20 20:31 20 MG Methylprednisolone Sodium Succinate (SOLU-Medrol 125MG VIAL) 125 mg 1X ONCE 03/30/20 17:30 03/30/20 17:31 DC 03/30/20 17:27 125 MG Olanzapine (ZyPREXA) 2.5 mg BID 04/03/20 21:00 UNV Sodium Chloride 1,000 ml @ 1,000 mls/hr 1X ONCE 03/30/20 14:45 03/30/20 15:44 DC 03/30/20 14:55 1,000 MLS/HR Sotalol HCl (Betapace) 120 mg DAILY 04/02/20 09:00 04/03/20 08:42 120 MG Tamsulosin HCl (Flomax) 0.4 mg QHS 03/31/20 21:00 04/02/20 20:30 0.4 MG Allergies: Allergies: Coded Allergies: pneumococcal vaccine (Verified Adverse Reaction, Intermediate, upper arm red and swollen after vaccine, 11/03/15) Had vaccine several years ago (had taken previously without incident) Mental Status Examination: Mental Status Examination Elderly gentleman, appears his stated age, thin, lean Resistant for psychological exploration, likely due to hard of hearing and confusion. Disoriented. Speech is soft, at times difficult to comprehend. Thought processes tangential. Denies auditory or visual hallucinations. Denies suicidal or homicidal thoughts. Mood is sad. Affect is dysthymic. Insight is limited. Judgment is fair. Impulse control is fair. Attention span and concentration impaired. Recent memory is impaired. ROS: CONSTITUTIONAL: No fever or chills EYES: No recent changes SKIN: No rash or itching CARDIOVASCULAR: No chest pain, syncope, palpitations, or edema RESPIRATORY: Positive for shortness of breath. GASTROINTESTINAL: No nausea, vomiting or abdominal pain NEUROLOGICAL: No headaches or weakness ENDOCRINE: No cold or heat intolerance GENITOURINARY: No urgency or frequency of urination MUSCULOSKELETAL: No back pain or joint pain LYMPHATICS: No enlarged lymph nodes PSYCHIATRIC: Positive for anxiety and sad mood. Physical Exam: Refer to Physician's note. [employer]ESAL[employer] PROFESSIONAL: No focal deficit MSK: No EPS, TDK, or abnormal involuntary movements Vitals: Vitals Vital Signs Date Time Temp Pulse Resp B/P (MAP) Pulse Ox O2 Delivery O2 Flow Rate FiO2 04/03/20 20:02 Nasal Cannula 3.0 04/03/20 19:52 95 04/03/20 19:19 98.3 79 16 116/56 (76) 98.3 Labs: Labs Laboratory Tests Test 04/02/20 17:15 Coronavirus (COVID-19)(PCR) Not detected (NOT DETECT.) Diagnosis: Diagnosis: 1unspecified anxiety disorder, rule out generalized anxiety disorder. 2acute delirium, likely multifactorial, hypoactive type. 3bereavement. 4-benzodiazepine use Assessment: Elderly gentleman struggling with bereavement and worsening anxiety likely to Xanax withdrawal. Additionally, having fluctuating level of orientation and consciousness signifying delirium. Recommending to add Zyprexa that would help with the resolution of delirium, and effective for anxiety and panic attacks. Seems like, he has limited capacity to take care of himself. Zyprexa would also help with boosting appetite. Plan: 1start Zyprexa 2.5 mg twice daily for delirium resolution, anxiety, depression. 2applied delirium protocol, avoid sundowning during the day. 3risk, benefits, alternatives of the treatment are discussed. Patient is in agreement with plan. 4nutritional supplements. ASIYA KRAFT MD Apr 03, 2020 20:32
[2020-04-03] MEDS: OLANZapine 2.5 MG TABLET PO SCH (21:11)
[2020-04-03] MEDS: TAMSULOSIN 0.4 MG CAP.ER.24H. PO SCH (21:11)
[2020-04-03 22:23] VITALS: BP 120/60
[2020-04-04] MEDS: AMINO AC 3%/ELECTROLYTE/GLYCER 1,000 ML IV SCH ×2 (02:25→17:41)
[2020-04-04 02:31] VITALS: BP 120/54
[2020-04-04 04:10] LABS: BASO % 0 % (0-3); EOS # 0.1 x10^3/uL (0.0-0.7); EOS % 1 % (0-3); HEMATOCRIT 30.7 % (39.0-53.0); HEMOGLOBIN 10.1 g/dL (13.0-17.5); LYMPH # 1.3 x10^3/uL (1.0-4.8); LYMPH % 27 % (24-48); MEAN CORPUSCULAR HEMOGLOBIN 32 pg (25-35); MEAN CORPUSCULAR HGB CONC 33 g/dL (31-37); MEAN CORPUSCULAR VOLUME 96 fL (79-100); MONO # 0.7 x10^3/uL (0.0-1.1); MONO % 13 % (0-9); NEUT # 2.9 x10^3/uL (1.8-7.7); NEUT % 58 % (31-73); PLATELET COUNT 224 x10^3/uL (140-400); RED BLOOD COUNT 3.18 x10^6/uL (4.30-5.70); RED CELL DISTRIBUTION WIDTH 13.8 % (11.5-14.5)
[2020-04-04 04:35] LABS: ALBUMIN 2.3 g/dL (3.4-5.0); ALBUMIN/GLOBULIN RATIO 0.8 (1.0-1.7); CREATININE 0.8 mg/dL (0.7-1.3); GFR 92.3; POTASSIUM 4.9 mmol/L (3.5-5.1); TOTAL BILIRUBIN 0.2 mg/dL (0.2-1.0); TOTAL PROTEIN 5.3 g/dL (6.4-8.2)
[2020-04-04 07:00] VITALS: BP 145/70
[2020-04-04] MEDS: IPRATRPIUM/ALBUTEROL 0.5/2.5MG 3 ML NEBU. NEB SCH ×5 (07:15→20:26)
[2020-04-04] MEDS: LISINOPRIL 20 MG TABLET PO SCH ×2 (08:46→21:22)
[2020-04-04] MEDS: ASPIRIN ENTERIC COATED 81 MG TABLET.DR. PO SCH (08:46)
[2020-04-04] MEDS: LACTOBACILLUS RHAMNOSUS GG 1 CAPSULE. PO SCH ×2 (08:46→21:22)
[2020-04-04] MEDS: APIXABAN 2.5 MG TABLET. PO SCH ×2 (08:46→21:22)
[2020-04-04] MEDS: OLANZapine 2.5 MG TABLET PO SCH ×2 (08:46→21:22)
[2020-04-04] MEDS: SOTALOL 80 MG TABLET. PO SCH (08:49)
--- NOTE | 2020-04-04 10:26 | PDOC ---
PULMONARY PROGRESS NOTES Subjective Feeling better today, denies SOB or increased cough Remains on N/C 3 liters Vitals Vital Signs Date Time Temp Pulse Resp B/P (MAP) Pulse Ox O2 Delivery O2 Flow Rate FiO2 04/04/20 08:49 74 145/70 04/04/20 07:36 94 Nasal Cannula 3.0 04/04/20 07:00 97.7 18 97.7 ROS: No Nausea, No Chest Pain, No Abdominal Pain, No Increase Cough General: Alert Lungs: Other (Decreased breath sounds) Cardiovascular: Other (Afib ) Abdomen: Soft, Non-tender Neuro Exam: Alert, Oriented Extremities: No Edema Skin: Warm, Dry Labs Laboratory Tests Test 04/02/20 17:15 04/04/20 03:55 Coronavirus (COVID-19)(PCR) Not detected (NOT DETECT.) White Blood Count 5.0 x10^3/uL (4.0-11.0) Red Blood Count 3.18 x10^6/uL (4.30-5.70) Hemoglobin 10.1 g/dL (13.0-17.5) Hematocrit 30.7 % (39.0-53.0) Mean Corpuscular Volume 96 fL (79-100) Mean Corpuscular Hemoglobin 32 pg (25-35) Mean Corpuscular Hemoglobin Concent 33 g/dL (31-37) Red Cell Distribution Width 13.8 % (11.5-14.5) Platelet Count 224 x10^3/uL (140-400) Neutrophils (%) (Auto) 58 % (31-73) Lymphocytes (%) (Auto) 27 % (24-48) Monocytes (%) (Auto) 13 % (0-9) Eosinophils (%) (Auto) 1 % (0-3) Basophils (%) (Auto) 0 % (0-3) Neutrophils # (Auto) 2.9 x10^3/uL (1.8-7.7) Lymphocytes # (Auto) 1.3 x10^3/uL (1.0-4.8) Monocytes # (Auto) 0.7 x10^3/uL (0.0-1.1) Eosinophils # (Auto) 0.1 x10^3/uL (0.0-0.7) Basophils # (Auto) 0.0 x10^3/uL (0.0-0.2) Sodium Level 142 mmol/L (136-145) Potassium Level 4.9 mmol/L (3.5-5.1) Chloride Level 101 mmol/L (98-107) Carbon Dioxide Level 41 mmol/L (21-32) Anion Gap 0 (6-14) Blood Urea Nitrogen 36 mg/dL (8-26) Creatinine 0.8 mg/dL (0.7-1.3) Estimated GFR (Cockcroft-Gault) 92.3 BUN/Creatinine Ratio 45 (6-20) Glucose Level 100 mg/dL (70-99) Calcium Level 9.0 mg/dL (8.5-10.1) Total Bilirubin 0.2 mg/dL (0.2-1.0) Aspartate Amino Transf (AST/SGOT) 15 U/L (15-37) Alanine Aminotransferase (ALT/SGPT) 20 U/L (16-63) Alkaline Phosphatase 52 U/L (46-116) Total Protein 5.3 g/dL (6.4-8.2) Albumin 2.3 g/dL (3.4-5.0) Albumin/Globulin Ratio 0.8 (1.0-1.7) Laboratory Tests Test 04/04/20 03:55 White Blood Count 5.0 x10^3/uL (4.0-11.0) Red Blood Count 3.18 x10^6/uL (4.30-5.70) Hemoglobin 10.1 g/dL (13.0-17.5) Hematocrit 30.7 % (39.0-53.0) Mean Corpuscular Volume 96 fL (79-100) Mean Corpuscular Hemoglobin 32 pg (25-35) Mean Corpuscular Hemoglobin Concent 33 g/dL (31-37) Red Cell Distribution Width 13.8 % (11.5-14.5) Platelet Count 224 x10^3/uL (140-400) Neutrophils (%) (Auto) 58 % (31-73) Lymphocytes (%) (Auto) 27 % (24-48) Monocytes (%) (Auto) 13 % (0-9) Eosinophils (%) (Auto) 1 % (0-3) Basophils (%) (Auto) 0 % (0-3) Neutrophils # (Auto) 2.9 x10^3/uL (1.8-7.7) Lymphocytes # (Auto) 1.3 x10^3/uL (1.0-4.8) Monocytes # (Auto) 0.7 x10^3/uL (0.0-1.1) Eosinophils # (Auto) 0.1 x10^3/uL (0.0-0.7) Basophils # (Auto) 0.0 x10^3/uL (0.0-0.2) Sodium Level 142 mmol/L (136-145) Potassium Level 4.9 mmol/L (3.5-5.1) Chloride Level 101 mmol/L (98-107) Carbon Dioxide Level 41 mmol/L (21-32) Anion Gap 0 (6-14) Blood Urea Nitrogen 36 mg/dL (8-26) Creatinine 0.8 mg/dL (0.7-1.3) Estimated GFR (Cockcroft-Gault) 92.3 BUN/Creatinine Ratio 45 (6-20) Glucose Level 100 mg/dL (70-99) Calcium Level 9.0 mg/dL (8.5-10.1) Total Bilirubin 0.2 mg/dL (0.2-1.0) Aspartate Amino Transf (AST/SGOT) 15 U/L (15-37) Alanine Aminotransferase (ALT/SGPT) 20 U/L (16-63) Alkaline Phosphatase 52 U/L (46-116) Total Protein 5.3 g/dL (6.4-8.2) Albumin 2.3 g/dL (3.4-5.0) Albumin/Globulin Ratio 0.8 (1.0-1.7) Medications Active Scripts Medications Dose Route/Sig Max Daily Dose Days Date Category Prednisone 20 Mg Tablet 60 Mg PO DAILY 5 02/23/20 Rx Culturelle (Lactobacillus Rhamnosus Gg) 1 Each Cap.sprink 1 Cap PO BID 30 02/23/20 Rx Eliquis (Apixaban) 2.5 Mg Tablet 2.5 Mg PO BID 30 02/23/20 Rx Flomax (Tamsulosin Hcl) 0.4 Mg Cap.er.24h 0.4 Mg PO QHS 30 02/23/20 Rx Proair Hfa (Albuterol Sulfate) 8.5 Gm Hfa.aer.ad 2.5 Mg NEB PRN Q2HR PRN 30 02/23/20 Rx Doxycycline Hyclate 100 Mg Tablet 100 Mg PO BIDBFRMEAL 7 02/23/20 Rx Sotalol (Sotalol Hcl) 120 Mg Tablet 120 Mg PO BID 02/20/20 Reported Aspir 81 (Aspirin) 81 Mg Tablet.dr 81 Mg PO DAILYAC 11/03/15 Reported Advair 500-50 Diskus (Fluticasone/Salmeterol) 1 Each Disk.w.dev 1 Inh IH BID 11/03/15 Reported Alprazolam 0.5 Mg Tablet 0.5 Mg PO PRN TID PRN 11/03/15 Reported Proair Hfa Inhaler (Albuterol Sulfate) 8.5 Gm Hfa.aer.ad 2 Puff INH PRN Q4-6HRS PRN 11/03/[address] head 04/03/2020 IMPRESSION: Area of hypodensity in the left occipital lobe, may represent area of subacute versus chronic ischemia. Recommend correlation with MRI. Impression . IMPRESSION: 1. [id number] hypercapnic respiratory failure secondary to acute exacerbation of chronic obstructive pulmonary disease.--improved 2. End-stage chronic obstructive pulmonary disease with significant weight loss, likely secondary to chronic obstructive pulmonary disease. No definite mass seen on the chest x-ray and previous CT. 3. Previous abnormal CT chest with tiny lung nodules, 2-3 mm in diameter and no intervention required for that. 4. Chronic benzodiazepine use, may have contributed to hypercapnic respiratory failure. 5. Afib- stable, ongoing Plan . RECOMMENDATIONS: 1. Continue supplmental oxygen to keep sats above 92%, careful not to over oxygenate -- now on 3 liters N/C 2. Nebs 3. cautious use of benzodiazepines 4. Cont. PPN for nutritional support 5. PT/OT 6. continue eliquis for Afib 7. Would be an appropriate patient for home hospice. D/W RN DNR MAURILIO ALEJANDRA MD Apr 04, 2020 10:26
[2020-04-04 11:00] VITALS: BP 101/58
--- NOTE | 2020-04-04 14:51 | PDOC ---
PROGRESS NOTES Subjective Subjective Patient seen and examined Objective Objective Vital Signs Date Time Temp Pulse Resp B/P (MAP) Pulse Ox O2 Delivery O2 Flow Rate FiO2 04/04/20 11:47 Nasal Cannula 3.0 04/04/20 11:00 97.6 58 16 101/58 (72) 100 97.6 Intake and Output 04/04/20 07:00 Intake Total 1950 ml Output Total 1650 ml Balance 300 ml IV Total 1950 ml Output Urine Total 1650 ml Physical Exam Abdomen: Normal bowel sounds Heart: Other (Irregular rhythm) General: mild distress Lungs: Other (Decreased breath sounds) Assessment Assessment Problems Medical Problems: (1) Altered mental status Status: Acute (2) COPD (chronic obstructive pulmonary disease) Status: Acute (3) Dehydration Status: Acute (4) Hypercapnia Status: Acute Decreased responsiveness. Significantly improved today. Continuing present treatment. Acute on chronic respiratory failure with AECOPD. Also improved. PAFIB; mary episodes before due to higher dose of sotalol. Lower dose sotalol at 120 mg a day was restarted yesterday. Continue to monitor. Accelerated hypertension; controlled Comment Review of Relevant I have reviewed the following items matheus (where applicable) has been applied. Labs Laboratory Tests Test 04/02/20 17:15 04/04/20 03:55 Coronavirus (COVID-19)(PCR) Not detected (NOT DETECT.) White Blood Count 5.0 x10^3/uL (4.0-11.0) Red Blood Count 3.18 x10^6/uL (4.30-5.70) Hemoglobin 10.1 g/dL (13.0-17.5) Hematocrit 30.7 % (39.0-53.0) Mean Corpuscular Volume 96 fL (79-100) Mean Corpuscular Hemoglobin 32 pg (25-35) Mean Corpuscular Hemoglobin Concent 33 g/dL (31-37) Red Cell Distribution Width 13.8 % (11.5-14.5) Platelet Count 224 x10^3/uL (140-400) Neutrophils (%) (Auto) 58 % (31-73) Lymphocytes (%) (Auto) 27 % (24-48) Monocytes (%) (Auto) 13 % (0-9) Eosinophils (%) (Auto) 1 % (0-3) Basophils (%) (Auto) 0 % (0-3) Neutrophils # (Auto) 2.9 x10^3/uL (1.8-7.7) Lymphocytes # (Auto) 1.3 x10^3/uL (1.0-4.8) Monocytes # (Auto) 0.7 x10^3/uL (0.0-1.1) Eosinophils # (Auto) 0.1 x10^3/uL (0.0-0.7) Basophils # (Auto) 0.0 x10^3/uL (0.0-0.2) Sodium Level 142 mmol/L (136-145) Potassium Level 4.9 mmol/L (3.5-5.1) Chloride Level 101 mmol/L (98-107) Carbon Dioxide Level 41 mmol/L (21-32) Anion Gap 0 (6-14) Blood Urea Nitrogen 36 mg/dL (8-26) Creatinine 0.8 mg/dL (0.7-1.3) Estimated GFR (Cockcroft-Gault) 92.3 BUN/Creatinine Ratio 45 (6-20) Glucose Level 100 mg/dL (70-99) Calcium Level 9.0 mg/dL (8.5-10.1) Total Bilirubin 0.2 mg/dL (0.2-1.0) Aspartate Amino Transf (AST/SGOT) 15 U/L (15-37) Alanine Aminotransferase (ALT/SGPT) 20 U/L (16-63) Alkaline Phosphatase 52 U/L (46-116) Total Protein 5.3 g/dL (6.4-8.2) Albumin 2.3 g/dL (3.4-5.0) Albumin/Globulin Ratio 0.8 (1.0-1.7) Laboratory Tests Test 04/04/20 03:55 White Blood Count 5.0 x10^3/uL (4.0-11.0) Red Blood Count 3.18 x10^6/uL (4.30-5.70) Hemoglobin 10.1 g/dL (13.0-17.5) Hematocrit 30.7 % (39.0-53.0) Mean Corpuscular Volume 96 fL (79-100) Mean Corpuscular Hemoglobin 32 pg (25-35) Mean Corpuscular Hemoglobin Concent 33 g/dL (31-37) Red Cell Distribution Width 13.8 % (11.5-14.5) Platelet Count 224 x10^3/uL (140-400) Neutrophils (%) (Auto) 58 % (31-73) Lymphocytes (%) (Auto) 27 % (24-48) Monocytes (%) (Auto) 13 % (0-9) Eosinophils (%) (Auto) 1 % (0-3) Basophils (%) (Auto) 0 % (0-3) Neutrophils # (Auto) 2.9 x10^3/uL (1.8-7.7) Lymphocytes # (Auto) 1.3 x10^3/uL (1.0-4.8) Monocytes # (Auto) 0.7 x10^3/uL (0.0-1.1) Eosinophils # (Auto) 0.1 x10^3/uL (0.0-0.7) Basophils # (Auto) 0.0 x10^3/uL (0.0-0.2) Sodium Level 142 mmol/L (136-145) Potassium Level 4.9 mmol/L (3.5-5.1) Chloride Level 101 mmol/L (98-107) Carbon Dioxide Level 41 mmol/L (21-32) Anion Gap 0 (6-14) Blood Urea Nitrogen 36 mg/dL (8-26) Creatinine 0.8 mg/dL (0.7-1.3) Estimated GFR (Cockcroft-Gault) 92.3 BUN/Creatinine Ratio 45 (6-20) Glucose Level 100 mg/dL (70-99) Calcium Level 9.0 mg/dL (8.5-10.1) Total Bilirubin 0.2 mg/dL (0.2-1.0) Aspartate Amino Transf (AST/SGOT) 15 U/L (15-37) Alanine Aminotransferase (ALT/SGPT) 20 U/L (16-63) Alkaline Phosphatase 52 U/L (46-116) Total Protein 5.3 g/dL (6.4-8.2) Albumin 2.3 g/dL (3.4-5.0) Albumin/Globulin Ratio 0.8 (1.0-1.7) Medications Current Medications Sodium Chloride 1,000 ml @ 1,000 mls/hr 1X ONCE IV Last administered on 03/30/20at 14:55; Start 03/30/20 at 14:45; Stop 03/30/20 at 15:44; Status DC Methylprednisolone Sodium Succinate (SOLU-Medrol 125MG VIAL) 125 mg 1X ONCE IV Last administered on 03/30/20at 17:27; Start 03/30/20 at 17:30; Stop 03/30/20 at 17:31; Status DC Amino Acids/ Glycerin/ Electrolytes 1,000 ml @ 75 mls/hr [id number] IV Last administered on 04/04/20at 02:25; Start 03/30/20 at 21:30 Hydralazine HCl (Apresoline Inj) 10 mg PRN Q2HR PRN IVP ELEVATED BP, SEE COMMENTS Last administered on 04/01/20at 04:04; Start 03/30/20 at 23:00 Alprazolam (Xanax) 0.25 mg PRN Q8HRS PRN PO ANXIETY / AGITATION Last administered on 04/01/20at 08:29; Start 03/31/20 at 07:00; Stop 04/01/20 at 11:13; Status DC Albuterol/ Ipratropium (Duoneb) 3 ml RTQID NEB Last administered on 04/04/20at 11:47; Start 03/31/20 at 12:00 Apixaban (Eliquis) 2.5 mg BID PO Last administered on 04/04/20 08:46; Start 03/31/20 at 10:00 Aspirin (Ecotrin) 81 mg DAILYAC PO Last administered on 04/04/20 08:46; Start 03/31/20 at 10:00 Lactobacillus Rhamnosus (Culturelle) 1 cap BID PO Last administered on 04/04/20at 08:46; Start 03/31/20 at 10:00 Tamsulosin HCl (Flomax) 0.4 mg QHS PO Last administered on 04/03/20at 21:11; S tart 03/31/20 at 21:00 Sotalol HCl (Betapace) 120 mg BID PO ; Start 03/31/20 at 10:00; Stop 03/31/20 at 10:56; Status DC Lisinopril (Prinivil) 20 mg BID PO Last administered on 04/04/20at 08:46; Start 03/31/20 at 12:00 Info (Anti-Coagulation Monitoring By Pharmacy) 1 each PRN DAILY PRN MC SEE COMMENTS Last administered on 04/01/20at 10:47; Start 03/31/20 at 17:00 Alprazolam (Xanax) 0.5 mg PRN Q6HRS PRN PO ANXIETY / AGITATION Last administered on 04/02/20at 20:32; Start 04/01/20 at 11:15 Sotalol HCl (Betapace) 120 mg DAILY PO Last administered on 04/04/20at 08:49; Start 04/02/20 at 09:00 Olanzapine (ZyPREXA) 2.5 mg BID PO Last administered on 04/04/20at 08:46; Start 04/03/20 at 21:00 Active Scripts Active Prednisone 20 Mg Tablet 60 Mg PO DAILY 5 Days Culturelle (Lactobacillus Rhamnosus Gg) 1 Each Cap.sprink 1 Cap PO BID 30 Days Eliquis (Apixaban) 2.5 Mg Tablet 2.5 Mg PO BID 30 Days Flomax (Tamsulosin Hcl) 0.4 Mg Cap.er.24h 0.4 Mg PO QHS 30 Days Proair Hfa (Albuterol Sulfate) 8.5 Gm Hfa.aer.ad 2.5 Mg NEB PRN Q2HR PRN 30 Days Doxycycline Hyclate 100 Mg Tablet 100 Mg PO BIDBFRMEAL 7 Days Reported Sotalol (Sotalol Hcl) 120 Mg Tablet 120 Mg PO BID Aspir 81 (Aspirin) 81 Mg Tablet.dr 81 Mg PO DAILYAC Advair 500-50 Diskus (Fluticasone/Salmeterol) 1 Each Disk.w.dev 1 Inh IH BID Alprazolam 0.5 Mg Tablet 0.5 Mg PO PRN TID PRN Proair Hfa Inhaler (Albuterol Sulfate) 8.5 Gm Hfa.aer.ad 2 Puff INH PRN Q4-6HRS PRN Vitals/I & O Vital Sign - Last 24 Hours 04/03/20 04/03/20 04/03/20 04/03/20 15:24 16:10 19:19 19:52 Temp 98.0 98.3 98.0 98.3 Pulse 67 79 Resp 16 16 B/P (MAP) 119/56 (77) 116/56 (76) Pulse Ox 96 96 95 O2 Delivery Nasal Cannula Nasal Cannula Nasal Cannula Nasal Cannula O2 Flow Rate 3.0 3.0 3.0 3.0 04/03/20 04/03/20 04/03/20 04/03/20 20:01 20:02 21:11 22:23 Temp 98.2 98.2 Pulse 79 78 Resp 16 B/P (MAP) 116/56 120/60 (80) Pulse Ox 98 O2 Delivery Nasal Cannula Nasal Cannula O2 Flow Rate 3.0 3.0 3.0 04/04/20 04/04/20 04/04/20 04/04/20 02:31 07:00 07:36 08:46 Temp 98.0 97.7 98.0 97.7 Pulse 82 74 87 Resp 18 18 B/P (MAP) 120/54 (76) 145/70 (95) 145/70 Pulse Ox 97 99 94 O2 Delivery Nasal Cannula Nasal Cannula Nasal Cannula O2 Flow Rate 3.0 3.0 3.0 04/04/20 04/04/20 04/04/20 08:49 11:00 11:47 Temp 97.6 97.6 Pulse 74 58 Resp 16 B/P (MAP) 145/70 101/58 (72) Pulse Ox 100 O2 Delivery Nasal Cannula Nasal Cannula O2 Flow Rate 3.0 3.0 Intake and Output 04/03/20 04/03/20 04/04/20 15:00 23:00 07:00 Intake Total 1000 ml 950 ml Output Total 250 ml 1400 ml Balance 1000 ml -250 ml -450 ml Nutrition Consultation Dietary Evaluation: Recommendations by RD: Dietary education by RD, Increase Calorie Intake, Protein supplementation, PPN/TPN Comments: Continue w/regular diet, honor food preferences, and provide snacks as requested Continue w/Ensure TID Continue w/PPN to supplement poor PO intake Expected Outcomes/Goals: PO intake to meet >75% est needs Malnutrition Findings: Food and Nutrition Intake (Mod: <75% est energy req 7days Body Fat Depletion (Non Severe: Mod to Severe Weight Status: Underweight JIMI RITCHIE MD Apr 04, 2020 14:51
[2020-04-04 15:00] VITALS: BP 91/51
--- NOTE | 2020-04-04 15:08 | PDOC ---
Nutrition Consultation Dietary Evaluation: Recommendations by RD: Dietary education by RD, Increase Calorie Intake, Protein supplementation, PPN/TPN Comments: Continue w/regular diet, honor food preferences, and provide snacks as requested Continue w/Ensure TID Continue w/PPN to supplement poor PO intake Expected Outcomes/Goals: PO intake to meet >75% est needs Malnutrition Findings: Food and Nutrition Intake (Mod: <75% est energy req 7days Body Fat Depletion (Non Severe: Mod to Severe Weight Status: Underweight GENERAL General: Patient examined chart reviewed patient is sleeping comfortably does not awaken on my assessment this afternoon. No overnight events are noted. CT head demo nstrates a question of subacute ischemia in his left occipital lobe. Patient is on renal dose Eliquis and aspirin. Submitting him to an MRI will not change our management at this point I will hold off unless clinically needed depending on his progress in the next few days. He will need a rehab stay for strengthening following this admission. We will continue current management otherwise. Problems: (1) COPD (chronic obstructive pulmonary disease) (2) Altered mental status (3) Protein-calorie malnutrition, severe VITAL SIGNS Vital Signs/I&O: Vital Signs Date Time Temp Pulse Resp B/P (MAP) Pulse Ox O2 Delivery O2 Flow Rate FiO2 04/04/20 11:47 Nasal Cannula 3.0 04/04/20 11:00 97.6 58 16 101/58 (72) 100 97.6 I & O 04/03/20 04/03/20 04/04/20 15:00 23:00 07:00 Intake Total 1000 ml 950 ml Output Total 250 ml 1400 ml Balance 1000 ml -250 ml -450 ml Patient is sleeping soundly on my evaluation this afternoon Chest bilateral equal air entry though diminished throughout no crackles or wheezes are noted Heart S1-S2 normal regular rate and rhythm no murmurs or gallops are noted Abdomen soft nontender nondistended no masses organomegaly noted Extremity exam is unremarkable for acute abnormality ALLERGIES Allergies: Allergies Coded Allergies Type Severity Reaction Last Updated Verified pneumococcal vaccine Adverse Reaction Intermediate upper arm red and swollen after vaccine 11/03/15 Yes MEDS Medications: Current Medications Medications (Trade) Dose Ordered Sig/Gregory Route PRN Reason Start Time Stop Time Status Last Admin Dose Admin Olanzapine (ZyPREXA) 2.5 mg BID PO 04/03/20 21:00 04/04/20 08:46 LAB Lab: Laboratory Tests Test 04/04/20 03:55 White Blood Count 5.0 x10^3/uL (4.0-11.0) Red Blood Count 3.18 x10^6/uL (4.30-5.70) L Hemoglobin 10.1 g/dL (13.0-17.5) L Hematocrit 30.7 % (39.0-53.0) L Mean Corpuscular Volume 96 fL (79-100) Mean Corpuscular Hemoglobin 32 pg (25-35) Mean Corpuscular Hemoglobin Concent 33 g/dL (31-37) Red Cell Distribution Width 13.8 % (11.5-14.5) Platelet Count 224 x10^3/uL (140-400) Neutrophils (%) (Auto) 58 % (31-73) Lymphocytes (%) (Auto) 27 % (24-48) Monocytes (%) (Auto) 13 % (0-9) H Eosinophils (%) (Auto) 1 % (0-3) Basophils (%) (Auto) 0 % (0-3) Neutrophils # (Auto) 2.9 x10^3/uL (1.8-7.7) Lymphocytes # (Auto) 1.3 x10^3/uL (1.0-4.8) Monocytes # (Auto) 0.7 x10^3/uL (0.0-1.1) Eosinophils # (Auto) 0.1 x10^3/uL (0.0-0.7) Basophils # (Auto) 0.0 x10^3/uL (0.0-0.2) Sodium Level 142 mmol/L (136-145) Potassium Level 4.9 mmol/L (3.5-5.1) Chloride Level 101 mmol/L (98-107) Carbon Dioxide Level 41 mmol/L (21-32) H Anion Gap 0 (6-14) L Blood Urea Nitrogen 36 mg/dL (8-26) H Creatinine 0.8 mg/dL (0.7-1.3) Estimated GFR (Cockcroft-Gault) 92.3 BUN/Creatinine Ratio 45 (6-20) H Glucose Level 100 mg/dL (70-99) H Calcium Level 9.0 mg/dL (8.5-10.1) Total Bilirubin 0.2 mg/dL (0.2-1.0) Aspartate Amino Transferase (AST) 15 U/L (15-37) Alanine Aminotransferase (ALT) 20 U/L (16-63) Alkaline Phosphatase 52 U/L (46-116) Total Protein 5.3 g/dL (6.4-8.2) L Albumin 2.3 g/dL (3.4-5.0) L Albumin/Globulin Ratio 0.8 (1.0-1.7) L Laboratory Tests 04/04/20 03:55 Laboratory Tests 04/04/20 03:55 IMAGING Imaging: PATIENT: JERROD WHIPPLE ACCOUNT: [id number] : 1935 LOCATION: [facility] AGE: 84 SEX: M EXAM STATUS: ADM IN ORD. PHYSICIAN: CALVIN LEIGH MD REASON: acute metabolic encephalopathy PROCEDURE: CT HEAD WO CONTRAST Exam: CT head INDICATION: Acute metabolic encephalopathy TECHNIQUE: Sequential axial images through the head were obtained without the administration of IV contrast. Comparisons: None FINDINGS: No focal parenchymal lesion or hemorrhage is identified. There is no midline shift or sulcal effacement. Area of hypodensity within the left occipital lobe. Additionally hypodensities within the periventricular white matter likely representing small vessel schema change. Mathews-white distinction is preserved. The ventricular system is within normal limits without compression hydrocephalus. The basal cisterns are well maintained. The visualized portions of the paranasal sinuses and mastoid air cells are well-pneumatized. No acute fractures. IMPRESSION: Area of hypodensity in the left occipital lobe, may represent area of subacute versus chronic ischemia. Recommend correlation with MRI. Exposure: One or more of the following in the visualized dose reduction techniques were utilized for this examination: 1. Automated exposure control 2. Adjustment of the MA and/or KV according to patient size Use of iterative of reconstructive technique Electronically signed by: Lisa Peña MD (04/03/2020 4:48 PM) [id number] ASSESSMENT & PLAN A&P Plan as noted above This note was created using [employer] and may have omissions and/or errors due to the nature of real-time voice cigar roller. CALVIN LEIGH MD Apr 04, 2020 15:08
[2020-04-04 19:27] VITALS: BP 124/40
[2020-04-04] MEDS: TAMSULOSIN 0.4 MG CAP.ER.24H. PO SCH (21:22)
[2020-04-04 22:36] VITALS: BP 117/42
[2020-04-05 03:39] VITALS: BP 111/43
[2020-04-05 07:00] VITALS: BP 138/64
[2020-04-05] MEDS: IPRATRPIUM/ALBUTEROL 0.5/2.5MG 3 ML NEBU. NEB SCH ×4 (07:00→19:33)
--- NOTE | 2020-04-05 08:27 | PDOC ---
PROGRESS NOTES Chief Complaint Chief Complaint Probable failure to thrive (he cannot take care of himself at home ?) Hypercapnia Respiratory failure COPD Probable severe depression (his recently) A. fib Hypertension Anemia Alcohol use Tobacco History of Present Illness History of Present Illness Mr Wyatt is a 84 yo M w/ PMHx COPD who 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 He was brought into the hospital with dyspnea and lethargy. The patient's had a stroke and was admitted to another hospital. He was depressed. He still thinks she is alive today, however, she on 03/30/2020. ABG showed pH of 7.18, pCO2 of 147 and a pO2 of 214 on 2.5 liters. He was admitted on BIPAP and made improvement and his mental status continued to improve and follow ABGs last evening showed a pH of 7.40, pCO2 of 72 and a pO2 of 58 on BiPAP. He is in ok spirits today after starting zyprexa. Still very weak. Plans for SNF at [place]. No CP, SOB stable. Afebrile. 04/02/2020 Patient seen and examined He is coughing a lot this morning but overall still improving Still on PPN Discussed with RN Discussed with case management We will see how he does with physical therapy and Occupational Therapy then eventually he will need long-term or long-term care 04/01/2020 Patient seen and examined in the ICU He is sitting up in the chair talking to his stepson I also spoke with the stepson by phone and explained that his dad needs to go to long-term and may be even long-term care eventually Chart reviewed Discussed with RN 03/31/2020 Patient seen and examined in the ICU He is on BiPAP He is receiving IV ProcalAmine at 75 cc an hour Discussed with nurse Chart reviewed Vitals Vitals Vital Signs Date Time Temp Pulse Resp B/P (MAP) Pulse Ox O2 Delivery O2 Flow Rate FiO2 04/05/20 07:01 95 Nasal Cannula 3.0 04/05/20 07:00 97.8 60 18 138/64 (88) 97.8 Physical Exam General: mild distress Heart: Other (Irregular rhythm) Lungs: Other (Decreased breath sounds) Abdomen: Normal bowel sounds Extremities: No edema, Normal pulses Skin: No breakdown, No significant lesion Assessment and Plan Assessmemt and Plan Problems Medical Problems: (1) Altered mental status Status: Acute (2) COPD (chronic obstructive pulmonary disease) Status: Acute (3) Dehydration Status: Acute (4) Hypercapnia Status: Acute Comment Review of Relevant I have reviewed the following items matheus (where applicable) has been applied. Labs Laboratory Tests Test 04/04/20 03:55 White Blood Count 5.0 x10^3/uL (4.0-11.0) Red Blood Count 3.18 x10^6/uL (4.30-5.70) Hemoglobin 10.1 g/dL (13.0-17.5) Hematocrit 30.7 % (39.0-53.0) Mean Corpuscular Volume 96 fL (79-100) Mean Corpuscular Hemoglobin 32 pg (25-35) Mean Corpuscular Hemoglobin Concent 33 g/dL (31-37) Red Cell Distribution Width 13.8 % (11.5-14.5) Platelet Count 224 x10^3/uL (140-400) Neutrophils (%) (Auto) 58 % (31-73) Lymphocytes (%) (Auto) 27 % (24-48) Monocytes (%) (Auto) 13 % (0-9) Eosinophils (%) (Auto) 1 % (0-3) Basophils (%) (Auto) 0 % (0-3) Neutrophils # (Auto) 2.9 x10^3/uL (1.8-7.7) Lymphocytes # (Auto) 1.3 x10^3/uL (1.0-4.8) Monocytes # (Auto) 0.7 x10^3/uL (0.0-1.1) Eosinophils # (Auto) 0.1 x10^3/uL (0.0-0.7) Basophils # (Auto) 0.0 x10^3/uL (0.0-0.2) Sodium Level 142 mmol/L (136-145) Potassium Level 4.9 mmol/L (3.5-5.1) Chloride Level 101 mmol/L (98-107) Carbon Dioxide Level 41 mmol/L (21-32) Anion Gap 0 (6-14) Blood Urea Nitrogen 36 mg/dL (8-26) Creatinine 0.8 mg/dL (0.7-1.3) Estimated GFR (Cockcroft-Gault) 92.3 BUN/Creatinine Ratio 45 (6-20) Glucose Level 100 mg/dL (70-99) Calcium Level 9.0 mg/dL (8.5-10.1) Total Bilirubin 0.2 mg/dL (0.2-1.0) Aspartate Amino Transf (AST/SGOT) 15 U/L (15-37) Alanine Aminotransferase (ALT/SGPT) 20 U/L (16-63) Alkaline Phosphatase 52 U/L (46-116) Total Protein 5.3 g/dL (6.4-8.2) Albumin 2.3 g/dL (3.4-5.0) Albumin/Globulin Ratio 0.8 (1.0-1.7) Medications Current Medications Sodium Chloride 1,000 ml @ 1,000 mls/hr 1X ONCE IV Last administered on 03/30/20at 14:55; Start 03/30/20 at 14:45; Stop 03/30/20 at 15:44; Status DC Methylprednisolone Sodium Succinate (SOLU-Medrol 125MG VIAL) 125 mg 1X ONCE IV Last administered on 03/30/20at 17:27; Start 03/30/20 at 17:30; Stop 03/30/20 at 17: 31; Status DC Amino Acids/ Glycerin/ Electrolytes 1,000 ml @ 75 mls/hr [id number] IV Last administered on 04/04/20at 17:41; Start 03/30/20 at 21:30 Hydralazine HCl (Apresoline Inj) 10 mg PRN Q2HR PRN IVP ELEVATED BP, SEE COMMENTS Last administered on 04/01/20at 04:04; Start 03/30/20 at 23:00 Alprazolam (Xanax) 0.25 mg PRN Q8HRS PRN PO ANXIETY / AGITATION Last administered on 04/01/20at 08:29; Start 03/31/20 at 07:00; Stop 04/01/20 at 11:13; Status DC Albuterol/ Ipratropium (Duoneb) 3 ml RTQID NEB Last administered on 04/05/20at 07:00; Start 03/31/20 at 12:00 Apixaban (Eliquis) 2.5 mg BID PO Last administered on 04/04/20at 21:22; Start 03/31/20 at 10:00 Aspirin (Ecotrin) 81 mg DAILYAC PO Last administered on 04/04/20 08:46; Start 03/31/20 at 10:00 Lactobacillus Rhamnosus (Culturelle) 1 cap BID PO Last administered on 04/04/20 21:22; Start 03/31/20 at 10:00 Tamsulosin HCl (Flomax) 0.4 mg QHS PO Last administered on 04/04/20 21:22; Start 03/31/20 at 21:00 Sotalol HCl (Betapace) 120 mg BID PO ; Start 03/31/20 at 10:00; Stop 03/31/20 at 10:56; Status DC Lisinopril (Prinivil) 20 mg BID PO Last administered on 04/04/20 21:22; Start 03/31/20 at 12:00 Info (Anti-Coagulation Monitoring By Pharmacy) 1 each PRN DAILY PRN MC SEE COMMENTS Last administered on 04/01/20at 10:47; Start 03/31/20 at 17:00 Alprazolam (Xanax) 0.5 mg PRN Q6HRS PRN PO ANXIETY / AGITATION Last administered on 04/02/20 20:32; Start 04/01/20 at 11:15 Sotalol HCl (Betapace) 120 mg DAILY PO Last administered on 04/04/20 08:49; Start 04/02/20 at 09:00 Olanzapine (ZyPREXA) 2.5 mg BID PO Last administered on 04/04/20 21:22; Start 04/03/20 at 21:00 Active Scripts Active Prednisone 20 Mg Tablet 60 Mg PO DAILY 5 Days Culturelle (Lactobacillus Rhamnosus Gg) 1 Each Cap.sprink 1 Cap PO BID 30 Days Eliquis (Apixaban) 2.5 Mg Tablet 2.5 Mg PO BID 30 Days Flomax (Tamsulosin Hcl) 0.4 Mg Cap.er.24h 0.4 Mg PO QHS 30 Days Proair Hfa (Albuterol Sulfate) 8.5 Gm Hfa.aer.ad 2.5 Mg NEB PRN Q2HR PRN 30 Days Doxycycline Hyclate 100 Mg Tablet 100 Mg PO BIDBFRMEAL 7 Days Reported Sotalol (Sotalol Hcl) 120 Mg Tablet 120 Mg PO BID Aspir 81 (Aspirin) 81 Mg Tablet.dr 81 Mg PO DAILYAC Advair 500-50 Diskus (Fluticasone/Salmeterol) 1 Each Disk.w.dev 1 Inh IH BID Alprazolam 0.5 Mg Tablet 0.5 Mg PO PRN TID PRN Proair Hfa Inhaler (Albuterol Sulfate) 8.5 Gm Hfa.aer.ad 2 Puff INH PRN Q4-6HRS PRN Vitals/I & O Vital Sign - Last 24 Hours 04/04/20 04/04/20 04/04/20 04/04/20 08:46 08:49 11:00 11:47 Temp 97.6 97.6 Pulse 87 74 58 Resp 16 B/P (MAP) 145/70 145/70 101/58 (72) Pulse Ox 100 O2 Delivery Nasal Cannula Nasal Cannula O2 Flow Rate 3.0 3.0 04/04/20 04/04/20 04/04/20 04/04/20 15:00 19:27 20:00 20:26 Temp 97.6 98.1 97.6 98.1 Pulse 53 63 Resp 16 18 B/P (MAP) 91/51 (64) 124/40 (68) Pulse Ox 94 97 94 O2 Delivery Nasal Cannula Nasal Cannula Nasal Cannula Nasal Cannula O2 Flow Rate 3.0 3.0 3.0 3.0 04/04/20 04/04/20 04/05/20 04/05/20 21:22 22:36 03:39 07:00 Temp 97.7 97.9 97.8 97.7 97.9 97.8 Pulse 63 56 57 60 Resp 18 16 18 B/P (MAP) 124/40 117/42 (67) 111/43 (65) 138/64 (88) Pulse Ox 100 98 99 O2 Delivery Nasal Cannula Nasal Cannula Nasal Cannula O2 Flow Rate 3.0 3.0 3.0 04/05/20 07:01 Pulse Ox 95 O2 Delivery Nasal Cannula O2 Flow Rate 3.0 Intake and Output 04/04/20 04/04/20 04/05/20 15:00 23:00 07:00 Intake Total 180 ml 300 ml 100 ml Output Total 250 ml 200 ml Balance -70 ml 100 ml [address] head - No focal parenchymal lesion or hemorrhage is identified. There is no midline shift or sulcal effacement. Area of hypodensity within the left occipital lobe. Additionally hypodensities within the periventricular white matter likely representing small vessel schema change. Mathews-white distinction is preserved. The ventricular system is within normal limits without compression hydrocephalus. The basal cisterns are well maintained. The visualized portions of the paranasal sinuses and mastoid air cells are well- pneumatized. No acute fractures. IMPRESSION: Area of hypodensity in the left occipital lobe, may represent area of subacute versus chronic ischemia. Recommend correlation with MRI. Nutrition Consultation Dietary Evaluation: Recommendations by RD: Dietary education by RD, Increase Calorie Intake, Protein supplementation, PPN/TPN Comments: Continue w/regular diet, honor food preferences, and provide snacks as requested Continue w/Ensure TID Continue w/PPN to supplement poor PO intake Expected Outcomes/Goals: PO intake to meet >75% est needs Malnutrition Findings: Food and Nutrition Intake (Mod: <75% est energy req 7days Body Fat Depletion (Non Severe: Mod to Severe Weight Status: Underweight JEFFERY BARRERA MD Apr 05, 2020 08:27
[2020-04-05] MEDS: ASPIRIN ENTERIC COATED 81 MG TABLET.DR. PO SCH (08:40)
[2020-04-05] MEDS: LISINOPRIL 20 MG TABLET PO SCH (08:41)
[2020-04-05] MEDS: OLANZapine 2.5 MG TABLET PO SCH (08:41)
[2020-04-05] MEDS: SOTALOL 80 MG TABLET. PO SCH (08:42)
[2020-04-05] MEDS: LACTOBACILLUS RHAMNOSUS GG 1 CAPSULE. PO SCH (08:42)
[2020-04-05] MEDS: APIXABAN 2.5 MG TABLET. PO SCH (08:42)
[2020-04-05 09:09] LABS: BASO % 1 % (0-3); EOS % 1 % (0-3); HEMOGLOBIN 9.1 g/dL (13.0-17.5); LYMPH % 22 % (24-48); MEAN CORPUSCULAR HEMOGLOBIN 32 pg (25-35); MEAN CORPUSCULAR HGB CONC 32 g/dL (31-37); MEAN CORPUSCULAR VOLUME 98 fL (79-100); MONO # 0.4 x10^3/uL (0.0-1.1); MONO % 10 % (0-9); NEUT # 3.1 x10^3/uL (1.8-7.7); NEUT % 68 % (31-73); PLATELET COUNT 215 x10^3/uL (140-400); RED BLOOD COUNT 2.87 x10^6/uL (4.30-5.70); RED CELL DISTRIBUTION WIDTH 14.4 % (11.5-14.5); WHITE BLOOD COUNT 4.6 x10^3/uL (4.0-11.0)
[2020-04-05 09:26] LABS: ALBUMIN 2.3 g/dL (3.4-5.0); ALBUMIN/GLOBULIN RATIO 0.7 (1.0-1.7); CALCIUM 8.9 mg/dL (8.5-10.1); GFR 71.4; POTASSIUM 5.5 mmol/L (3.5-5.1); TOTAL BILIRUBIN 0.1 mg/dL (0.2-1.0); TOTAL PROTEIN 5.4 g/dL (6.4-8.2)
--- NOTE | 2020-04-05 10:35 | PDOC ---
PULMONARY PROGRESS NOTES Subjective Feeling better today, denies SOB or increased cough Remains on N/C 3 liters Vitals Vital Signs Date Time Temp Pulse Resp B/P (MAP) Pulse Ox O2 Delivery O2 Flow Rate FiO2 04/05/20 08:42 65 04/05/20 08:05 Nasal Cannula 3.0 04/05/20 07:01 95 04/05/20 07:00 97.8 18 138/64 (88) 97.8 ROS: No Nausea, No Chest Pain, No Abdominal Pain, No Increase Cough General: Alert Lungs: Other (Decreased breath sounds) Cardiovascular: Other (Afib ) Abdomen: Soft, Non-tender Neuro Exam: Alert, Oriented Extremities: No Edema Skin: Warm, Dry Labs Laboratory Tests Test 04/04/20 03:55 04/05/20 08:45 White Blood Count 5.0 x10^3/uL (4.0-11.0) 4.6 x10^3/uL (4.0-11.0) Red Blood Count 3.18 x10^6/uL (4.30-5.70) 2.87 x10^6/uL (4.30-5.70) Hemoglobin 10.1 g/dL (13.0-17.5) 9.1 g/dL (13.0-17.5) Hematocrit 30.7 % (39.0-53.0) 28.0 % (39.0-53.0) Mean Corpuscular Volume 96 fL (79-100) 98 fL (79-100) Mean Corpuscular Hemoglobin 32 pg (25-35) 32 pg (25-35) Mean Corpuscular Hemoglobin Concent 33 g/dL (31-37) 32 g/dL (31-37) Red Cell Distribution Width 13.8 % (11.5-14.5) 14.4 % (11.5-14.5) Platelet Count 224 x10^3/uL (140-400) 215 x10^3/uL (140-400) Neutrophils (%) (Auto) 58 % (31-73) 68 % (31-73) Lymphocytes (%) (Auto) 27 % (24-48) 22 % (24-48) Monocytes (%) (Auto) 13 % (0-9) 10 % (0-9) Eosinophils (%) (Auto) 1 % (0-3) 1 % (0-3) Basophils (%) (Auto) 0 % (0-3) 1 % (0-3) Neutrophils # (Auto) 2.9 x10^3/uL (1.8-7.7) 3.1 x10^3/uL (1.8-7.7) Lymphocytes # (Auto) 1.3 x10^3/uL (1.0-4.8) 1.0 x10^3/uL (1.0-4.8) Monocytes # (Auto) 0.7 x10^3/uL (0.0-1.1) 0.4 x10^3/uL (0.0-1.1) Eosinophils # (Auto) 0.1 x10^3/uL (0.0-0.7) 0.0 x10^3/uL (0.0-0.7) Basophils # (Auto) 0.0 x10^3/uL (0.0-0.2) 0.0 x10^3/uL (0.0-0.2) Sodium Level 142 mmol/L (136-145) 139 mmol/L (136-145) Potassium Level 4.9 mmol/L (3.5-5.1) 5.5 mmol/L (3.5-5.1) Chloride Level 101 mmol/L (98-107) 102 mmol/L (98-107) Carbon Dioxide Level 41 mmol/L (21-32) 37 mmol/L (21-32) Anion Gap 0 (6-14) 0 (6-14) Blood Urea Nitrogen 36 mg/dL (8-26) 42 mg/dL (8-26) Creatinine 0.8 mg/dL (0.7-1.3) 1.0 mg/dL (0.7-1.3) Estimated GFR (Cockcroft-Gault) 92.3 71.4 BUN/Creatinine Ratio 45 (6-20) 42 (6-20) Glucose Level 100 mg/dL (70-99) 116 mg/dL (70-99) Calcium Level 9.0 mg/dL (8.5-10.1) 8.9 mg/dL (8.5-10.1) Total Bilirubin 0.2 mg/dL (0.2-1.0) 0.1 mg/dL (0.2-1.0) Aspartate Amino Transf (AST/SGOT) 15 U/L (15-37) 18 U/L (15-37) Alanine Aminotransferase (ALT/SGPT) 20 U/L (16-63) 19 U/L (16-63) Alkaline Phosphatase 52 U/L (46-116) 56 U/L (46-116) Total Protein 5.3 g/dL (6.4-8.2) 5.4 g/dL (6.4-8.2) Albumin 2.3 g/dL (3.4-5.0) 2.3 g/dL (3.4-5.0) Albumin/Globulin Ratio 0.8 (1.0-1.7) 0.7 (1.0-1.7) Laboratory Tests Test 04/05/20 08:45 White Blood Count 4.6 x10^3/uL (4.0-11.0) Red Blood Count 2.87 x10^6/uL (4.30-5.70) Hemoglobin 9.1 g/dL (13.0-17.5) Hematocrit 28.0 % (39.0-53.0) Mean Corpuscular Volume 98 fL (79-100) Mean Corpuscular Hemoglobin 32 pg (25-35) Mean Corpuscular Hemoglobin Concent 32 g/dL (31-37) Red Cell Distribution Width 14.4 % (11.5-14.5) Platelet Count 215 x10^3/uL (140-400) Neutrophils (%) (Auto) 68 % (31-73) Lymphocytes (%) (Auto) 22 % (24-48) Monocytes (%) (Auto) 10 % (0-9) Eosinophils (%) (Auto) 1 % (0-3) Basophils (%) (Auto) 1 % (0-3) Neutrophils # (Auto) 3.1 x10^3/uL (1.8-7.7) Lymphocytes # (Auto) 1.0 x10^3/uL (1.0-4.8) Monocytes # (Auto) 0.4 x10^3/uL (0.0-1.1) Eosinophils # (Auto) 0.0 x10^3/uL (0.0-0.7) Basophils # (Auto) 0.0 x10^3/uL (0.0-0.2) Sodium Level 139 mmol/L (136-145) Potassium Level 5.5 mmol/L (3.5-5.1) Chloride Level 102 mmol/L (98-107) Carbon Dioxide Level 37 mmol/L (21-32) Anion Gap 0 (6-14) Blood Urea Nitrogen 42 mg/dL (8-26) Creatinine 1.0 mg/dL (0.7-1.3) Estimated GFR (Cockcroft-Gault) 71.4 BUN/Creatinine Ratio 42 (6-20) Glucose Level 116 mg/dL (70-99) Calcium Level 8.9 mg/dL (8.5-10.1) Total Bilirubin 0.1 mg/dL (0.2-1.0) Aspartate Amino Transf (AST/SGOT) 18 U/L (15-37) Alanine Aminotransferase (ALT/SGPT) 19 U/L (16-63) Alkaline Phosphatase 56 U/L (46-116) Total Protein 5.4 g/dL (6.4-8.2) Albumin 2.3 g/dL (3.4-5.0) Albumin/Globulin Ratio 0.7 (1.0-1.7) Medications Active Scripts Medications Dose Route/Sig Max Daily Dose Days Date Category Prednisone 20 Mg Tablet 60 Mg PO DAILY 5 02/23/20 Rx Culturelle (Lactobacillus Rhamnosus Gg) 1 Each Cap.sprink 1 Cap PO BID 30 02/23/20 Rx Eliquis (Apixaban) 2.5 Mg Tablet 2.5 Mg PO BID 30 02/23/20 Rx Flomax (Tamsulosin Hcl) 0.4 Mg Cap.er.24h 0.4 Mg PO QHS 30 02/23/20 Rx Proair Hfa (Albuterol Sulfate) 8.5 Gm Hfa.aer.ad 2.5 Mg NEB PRN Q2HR PRN 30 02/23/20 Rx Doxycycline Hyclate 100 Mg Tablet 100 Mg PO BIDBFRMEAL 7 02/23/20 Rx Sotalol (Sotalol Hcl) 120 Mg Tablet 120 Mg PO BID 02/20/20 Reported Aspir 81 (Aspirin) 81 Mg Tablet.dr 81 Mg PO DAILYAC 11/03/15 Reported Advair 500-50 Diskus (Fluticasone/Salmeterol) 1 Each Disk.w.dev 1 Inh IH BID 11/03/15 Reported Alprazolam 0.5 Mg Tablet 0.5 Mg PO PRN TID PRN 11/03/15 Reported Proair Hfa Inhaler (Albuterol Sulfate) 8.5 Gm Hfa.aer.ad 2 Puff INH PRN Q4-6HRS PRN 11/03/[address] head 04/03/2020 IMPRESSION: Area of hypodensity in the left occipital lobe, may represent area of subacute versus chronic ischemia. Recommend correlation with MRI. Impression . IMPRESSION: 1. [id number] hypercapnic respiratory failure secondary to acute e xacerbation of chronic obstructive pulmonary disease.--improved 2. End-stage chronic obstructive pulmonary disease with significant weight loss, likely secondary to chronic obstructive pulmonary disease. No definite mass seen on the chest x-ray and previous CT. 3. Previous abnormal CT chest with tiny lung nodules, 2-3 mm in diameter and no intervention required for that. 4. Chronic benzodiazepine use, may have contributed to hypercapnic respiratory failure. 5. Afib- stable, ongoing Plan . RECOMMENDATIONS: 1. Continue supplmental oxygen to keep sats above 92%, careful not to over oxygenate -- now on 3 liters N/C 2. Nebs 3. cautious use of benzodiazepines 4. Cont. PPN for nutritional support 5. PT/OT 6. continue eliquis for Afib 7. Would be an appropriate patient for home hospice. D/W RN DNR MAURILIO ALEJANDRA MD Apr 05, 2020 10:35
[2020-04-05] MEDS: AMINO AC 3%/ELECTROLYTE/GLYCER 1,000 ML IV SCH (10:50)
[2020-04-05 11:11] VITALS: BP 145/66
[2020-04-05] MEDS ORDERED: ALPR0.254 PO (12:26)
[2020-04-05] MEDS ORDERED: IPRA3AMP29 NEB (12:26)
[2020-04-05] MEDS ORDERED: OLAN2.5T11 PO (12:26)
--- NOTE | 2020-04-05 12:28 | SNU/HH DC ---
DISCHARGE ORDERS DISCHARGE INFORMATION: DISCHARGE DATE: Apr 05, 2020 FINAL DIAGNOSIS Problems Medical Problems: (1) Altered mental status Status: Acute (2) COPD (chronic obstructive pulmonary disease) Status: Acute (3) Dehydration Status: Acute (4) Hypercapnia Status: Acute CONDITION ON DISCHARGE: Stable CODE STATUS: Code Status: DNR/DNI SNF: SNF STAY <30 DAYS: Yes POST DISCHARGE ORDERS: ACTIVITY ORDERS: Activity as tolerated WEIGHT BEARING STATUS: As tolerated DIET AFTER DISCHARGE: Cardiac CHECKS AFTER DISCHARGE: CHECKS AFTER DISCHARGE: Check blood press - daily TREATMENT/EQUIPMENT ORDERS: ADAPTIVE EQUIPMENT NEEDED: None RESPIRATORY EQUIPMENT NEEDED: Oxygen, Nebulizer, MDI Physical Therapy For: Evalulation/Treatment Occupational Therapy For: Evaluation/Treatment Speech Language Pathology For: Evaluation/Treatment DISCHARGE MEDICATIONS: Home Meds Active Scripts Alprazolam (ALPRAZOLAM) 0.25 Mg Tablet, 0.25 MG PO PRN Q8HRS PRN for ANXIETY / AGITATION for 6 Days, #16 TAB Prov:JEFFERY BARRERA MD 04/05/20 Olanzapine (OLANZAPINE) 2.5 Mg Tablet, 2.5 MG PO PRN BID PRN for ANXIETY / AGITATION for 30 Days, TAB Prov:JEFFERY BARRERA MD 04/05/20 Ipratropium/Albuterol Sulfate (DUONEB 0.5-3(2.5) MG/3 ML) 3 Ml Ampul.neb, 3 ML NEB PRN QID PRN for SHORTNESS OF BREATH for 30 Days, #120 EACH Prov:JEFFERY BARRERA MD 04/05/20 Lactobacillus Rhamnosus Gg (CULTURELLE) 1 Each Cap.sprink, 1 CAP PO BID for SUPPLEMENT for 30 Days, #60 CAP Prov:HUA HARPER MD 02/23/20 Apixaban (ELIQUIS) 2.5 Mg Tablet, 2.5 MG PO BID for HEART for 30 Days, #60 TAB Prov:HUA HARPER MD 02/23/20 Tamsulosin Hcl (FLOMAX) 0.4 Mg Cap.er.24h, 0.4 MG PO QHS for URINE FLOW for 30 Days, #30 CAP.SR Prov:HUA HARPER MD 02/23/20 Albuterol Sulfate (Proair Hfa) 8.5 Gm Hfa.aer.ad, 2.5 MG NEB PRN Q2HR PRN for SHORTNESS OF BREATH for 30 Days, #120 EA Prov:HUA HARPER MD 02/23/20 Reported Medications Sotalol Hcl (SOTALOL) 120 Mg Tablet, 120 MG PO BID for afib 02/20/20 Aspirin (ASPIR 81) 81 Mg Tablet.dr, 81 MG PO DAILYAC, TAB 11/03/15 Fluticasone/Salmeterol (ADVAIR 500-50 DISKUS) 1 Each Disk.w.dev, 1 INH IH BID, INHALER 11/03/15 Discontinued Reported Medications Alprazolam (ALPRAZOLAM) 0.5 Mg Tablet, 0.5 MG PO PRN TID PRN for ANXIETY / AGITATION, TAB 0 Refills 11/03/15 Albuterol Sulfate (PROAIR HFA INHALER) 8.5 Gm Hfa.aer.ad, 2 PUFF INH PRN Q4-6HRS PRN for SHORTNESS OF BREATH, INHALER 0 Refills 11/03/15 Discontinued Scripts Prednisone (PREDNISONE) 20 Mg Tablet, 60 MG PO DAILY for COPD for 5 Days, #15 TAB Prov:HUA HARPER MD 02/23/20 Doxycycline Hyclate (DOXYCYCLINE HYCLATE) 100 Mg Tablet, 100 MG PO BIDBFRMEAL for COPD for 7 Days, #14 TAB Prov:HUA HARPER MD 02/23/20 JEFFERY BARRERA MD Apr 05, 2020 12:28
[2020-04-05] MEDS ORDERED: ALPRAZolam 0.25 MG TABLET PO PRN (12:30)
[2020-04-05 15:00] VITALS: BP 163/69
--- NOTE | 2020-04-05 15:04 | SNU/HH DC ---
DISCHARGE WITH HOME HEALTH DISCHARGE INFORMATION: Discharge Date: Apr 05, 2020 Final Diagnosis: Problems Medical Problems: (1) Altered mental status Status: Acute (2) COPD (chronic obstructive pulmonary disease) Status: Acute (3) Dehydration Status: Acute (4) Hypercapnia Status: Acute Condition on Discharge: Stable CODE STATUS: Code Status: DNR/DNI HOME HEALTH: Face to Face: I certify this patient is under my care and that I, or a nurse practitioner or physician's trust manager assistant working with me, had a face to face encounter that meets the physician face to face encounter requirements with this patient on 04/05/2020. Medical Complications: COPD Longterm For: Assess & Educate Safety, Assess/Skilled Observatio, Medication Management RN For Eval/Treatment: Yes Physical Therapy For: Evalulation/Treatment Pt Meets Homebound Status: Limited distance walking POST DISCHARGE ORDERS: Activity Instructions for Disc: Activity as tolerated Weight Bearing Status after Di: As tolerated DIET AFTER DISCHARGE: Cardiac CHECKS AFTER DISCHARGE: Checks after discharge: Check blood press - daily TREATMENT/EQUIPMENT ORDERS: Adaptive Equipment Issued: None Discharge Respiratory Equipmen: Oxygen, Nebulizer, MDI CERTIFICATION STATEMENT: Certification Statement: Certification Statement: Based on the above finding, I certify that this patient is confined to the home and needs intermittent halfway care, physical therapy and/or speech therapy, or continues to need occupational therapy.~ This patient is under my care, and I have initiated the establishment of the plan of care.~ This patient will be followed by myself or a community physician who will periodically review the plan of care. Home Meds Active Scripts Alprazolam (ALPRAZOLAM) 0.25 Mg Tablet, 0.25 MG PO PRN Q8HRS PRN for ANXIETY / AGITATION for 6 Days, #16 TAB Prov:JEFFERY BARRERA MD 04/05/20 Olanzapine (OLANZAPINE) 2.5 Mg Tablet, 2.5 MG PO PRN BID PRN for ANXIETY / AGITATION for 30 Days, TAB Prov:JEFFERY BARRERA MD 04/05/20 Ipratropium/Albuterol Sulfate (DUONEB 0.5-3(2.5) MG/3 ML) 3 Ml Ampul.neb, 3 ML NEB PRN QID PRN for SHORTNESS OF BREATH for 30 Days, #120 EACH Prov:JEFFERY BARRERA MD 04/05/20 Lactobacillus Rhamnosus Gg (CULTURELLE) 1 Each Cap.sprink, 1 CAP PO BID for SUPPLEMENT for 30 Days, #60 CAP Prov:HUA HARPER MD 02/23/20 Apixaban (ELIQUIS) 2.5 Mg Tablet, 2.5 MG PO BID for HEART for 30 Days, #60 TAB Prov:HUA HARPER MD 02/23/20 Tamsulosin Hcl (FLOMAX) 0.4 Mg Cap.er.24h, 0.4 MG PO QHS for URINE FLOW for 30 Days, #30 CAP.SR Prov:HUA HARPER MD 02/23/20 Albuterol Sulfate (Proair Hfa) 8.5 Gm Hfa.aer.ad, 2.5 MG NEB PRN Q2HR PRN for SHORTNESS OF BREATH for 30 Days, #120 EA Prov:HUA HARPER MD 02/23/20 Reported Medications Sotalol Hcl (SOTALOL) 120 Mg Tablet, 120 MG PO BID for afib 02/20/20 Aspirin (ASPIR 81) 81 Mg Tablet.dr, 81 MG PO DAILYAC, TAB 11/03/15 Fluticasone/Salmeterol (ADVAIR 500-50 DISKUS) 1 Each Disk.w.dev, 1 INH IH BID, INHALER 11/03/15 Discontinued Reported Medications Alprazolam (ALPRAZOLAM) 0.5 Mg Tablet, 0.5 MG PO PRN TID PRN for ANXIETY / AGITATION, TAB 0 Refills 11/03/15 Albuterol Sulfate (PROAIR HFA INHALER) 8.5 Gm Hfa.aer.ad, 2 PUFF INH PRN Q4-6HRS PRN for SHORTNESS OF BREATH, INHALER 0 Refills 11/03/15 Discontinued Scripts Prednisone (PREDNISONE) 20 Mg Tablet, 60 MG PO DAILY for COPD for 5 Days, #15 TAB Prov:HUA HARPER MD 02/23/20 Doxycycline Hyclate (DOXYCYCLINE HYCLATE) 100 Mg Tablet, 100 MG PO BIDBFRMEAL for COPD for 7 Days, #14 TAB Prov:HUA HARPER MD 02/23/20 JEFFERY BARRERA MD Apr 05, 2020 15:04
--- NOTE | 2020-04-05 15:09 | PDOC3 ---
Discharge Summary Visit Information Date of Admission: Mar 30, 2020 Date of Discharge: Apr 05, 2020 Admitting Diagnosis: Acute Encephalopathy Final Diagnosis Problems Medical Problems: (1) Altered mental status Status: Acute (2) COPD (chronic obstructive pulmonary disease) Status: Acute (3) Dehydration Status: Acute (4) Hypercapnia Status: Acute Brief Hospital Course Allergies Allergies Coded Allergies Type Severity Reaction Last Updated Verified pneumococcal vaccine Adverse Reaction Intermediate upper arm red and swollen after vaccine 11/03/15 Yes Vital Signs Vital Signs Date Time Temp Pulse Resp B/P (MAP) Pulse Ox O2 Delivery O2 Flow Rate FiO2 04/05/20 11:11 97.9 64 20 145/66 (92) 96 Nasal Cannula 3.0 97.9 Lab Results Laboratory Tests Test 04/04/20 03:55 04/05/20 08:45 White Blood Count 5.0 x10^3/uL (4.0-11.0) 4.6 x10^3/uL (4.0-11.0) Red Blood Count 3.18 x10^6/uL (4.30-5.70) 2.87 x10^6/uL (4.30-5.70) Hemoglobin 10.1 g/dL (13.0-17.5) 9.1 g/dL (13.0-17.5) Hematocrit 30.7 % (39.0-53.0) 28.0 % (39.0-53.0) Mean Corpuscular Volume 96 fL (79-100) 98 fL (79-100) Mean Corpuscular Hemoglobin 32 pg (25-35) 32 pg (25-35) Mean Corpuscular Hemoglobin Concent 33 g/dL (31-37) 32 g/dL (31-37) Red Cell Distribution Width 13.8 % (11.5-14.5) 14.4 % (11.5-14.5) Platelet Count 224 x10^3/uL (140-400) 215 x10^3/uL (140-400) Neutrophils (%) (Auto) 58 % (31-73) 68 % (31-73) Lymphocytes (%) (Auto) 27 % (24-48) 22 % (24-48) Monocytes (%) (Auto) 13 % (0-9) 10 % (0-9) Eosinophils (%) (Auto) 1 % (0-3) 1 % (0-3) Basophils (%) (Auto) 0 % (0-3) 1 % (0-3) Neutrophils # (Auto) 2.9 x10^3/uL (1.8-7.7) 3.1 x10^3/uL (1.8-7.7) Lymphocytes # (Auto) 1.3 x10^3/uL (1.0-4.8) 1.0 x10^3/uL (1.0-4.8) Monocytes # (Auto) 0.7 x10^3/uL (0.0-1.1) 0.4 x10^3/uL (0.0-1.1) Eosinophils # (Auto) 0.1 x10^3/uL (0.0-0.7) 0.0 x10^3/uL (0.0-0.7) Basophils # (Auto) 0.0 x10^3/uL (0.0-0.2) 0.0 x10^3/uL (0.0-0.2) Sodium Level 142 mmol/L (136-145) 139 mmol/L (136-145) Potassium Level 4.9 mmol/L (3.5-5.1) 5.5 mmol/L (3.5-5.1) Chloride Level 101 mmol/L (98-107) 102 mmol/L (98-107) Carbon Dioxide Level 41 mmol/L (21-32) 37 mmol/L (21-32) Anion Gap 0 (6-14) 0 (6-14) Blood Urea Nitrogen 36 mg/dL (8-26) 42 mg/dL (8-26) Creatinine 0.8 mg/dL (0.7-1.3) 1.0 mg/dL (0.7-1.3) Estimated GFR (Cockcroft-Gault) 92.3 71.4 BUN/Creatinine Ratio 45 (6-20) 42 (6-20) Glucose Level 100 mg/dL (70-99) 116 mg/dL (70-99) Calcium Level 9.0 mg/dL (8.5-10.1) 8.9 mg/dL (8.5-10.1) Total Bilirubin 0.2 mg/dL (0.2-1.0) 0.1 mg/dL (0.2-1.0) Aspartate Amino Transf (AST/SGOT) 15 U/L (15-37) 18 U/L (15-37) Alanine Aminotransferase (ALT/SGPT) 20 U/L (16-63) 19 U/L (16-63) Alkaline Phosphatase 52 U/L (46-116) 56 U/L (46-116) Total Protein 5.3 g/dL (6.4-8.2) 5.4 g/dL (6.4-8.2) Albumin 2.3 g/dL (3.4-5.0) 2.3 g/dL (3.4-5.0) Albumin/Globulin Ratio 0.8 (1.0-1.7) 0.7 (1.0-1.7) Laboratory Tests Test 04/05/20 08:45 White Blood Count 4.6 x10^3/uL (4.0-11.0) Red Blood Count 2.87 x10^6/uL (4.30-5.70) Hemoglobin 9.1 g/dL (13.0-17.5) Hematocrit 28.0 % (39.0-53.0) Mean Corpuscular Volume 98 fL (79-100) Mean Corpuscular Hemoglobin 32 pg (25-35) Mean Corpuscular Hemoglobin Concent 32 g/dL (31-37) Red Cell Distribution Width 14.4 % (11.5-14.5) Platelet Count 215 x10^3/uL (140-400) Neutrophils (%) (Auto) 68 % (31-73) Lymphocytes (%) (Auto) 22 % (24-48) Monocytes (%) (Auto) 10 % (0-9) Eosinophils (%) (Auto) 1 % (0-3) Basophils (%) (Auto) 1 % (0-3) Neutrophils # (Auto) 3.1 x10^3/uL (1.8-7.7) Lymphocytes # (Auto) 1.0 x10^3/uL (1.0-4.8) Monocytes # (Auto) 0.4 x10^3/uL (0.0-1.1) Eosinophils # (Auto) 0.0 x10^3/uL (0.0-0.7) Basophils # (Auto) 0.0 x10^3/uL (0.0-0.2) Sodium Level 139 mmol/L (136-145) Potassium Level 5.5 mmol/L (3.5-5.1) Chloride Level 102 mmol/L (98-107) Carbon Dioxide Level 37 mmol/L (21-32) Anion Gap 0 (6-14) Blood Urea Nitrogen 42 mg/dL (8-26) Creatinine 1.0 mg/dL (0.7-1.3) Estimated GFR (Cockcroft-Gault) 71.4 BUN/Creatinine Ratio 42 (6-20) Glucose Level 116 mg/dL (70-99) Calcium Level 8.9 mg/dL (8.5-10.1) Total Bilirubin 0.1 mg/dL (0.2-1.0) Aspartate Amino Transf (AST/SGOT) 18 U/L (15-37) Alanine Aminotransferase (ALT/SGPT) 19 U/L (16-63) Alkaline Phosphatase 56 U/L (46-116) Total Protein 5.4 g/dL (6.4-8.2) Albumin 2.3 g/dL (3.4-5.0) Albumin/Globulin Ratio 0.7 (1.0-1.7) Brief Hospital Course Mr Wyatt is a 84 yo M w/ PMHx COPD who 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 He was brought into the hospital with dyspnea and lethargy. The patient's had a stroke and was admitted to another hospital. He was depressed. He still thinks she is alive today, however, she on 03/30/2020. ABG showed pH of 7.18, pCO2 of 147 and a pO2 of 214 on 2.5 liters. He was admi tted on BIPAP and made improvement and his mental status continued to improve and follow ABGs last evening showed a pH of 7.40, pCO2 of 72 and a pO2 of 58 on BiPAP. Weaned to 3L with no issues. His ex- and son came to visit and are insistent he go home with home health. He is in ok spirits today after starting zyprexa. Still very weak. Plans for SNF at [place]. No CP, SOB stable. Afebrile. Problem list: Probable failure to thrive (he cannot take care of himself at home ?) Hypercapnia Respiratory failure COPD Probable severe depression (his recently) A. fib Hypertension Anemia Alcohol use Tobacco Greater than 30 minutes spent on d/c Discharge Information Condition at Discharge: Improved Follow Up: Weeks (1) Disposition/Orders: D/C to Home w/ HH Scheduled Apixaban (Eliquis) 2.5 Mg Tablet, 2.5 MG PO BID for HEART for 30 Days, #60 Prescribed by: HUA HARPER MD on 02/23/201415 Last Action: Continued on 03/31/20947 by ELEAZAR HYMAN Aspirin (Aspir 81) 81 Mg Tablet.dr, 81 MG PO DAILYAC, (Reported) Entered as Reported by: JANINE DOMINGUEZ RPH on 11/03/15 144 Last Action: Continued on 03/31/20947 by ELEAZAR HYMAN Fluticasone/Salmeterol (Advair 500-50 Diskus) 1 Each Disk.w.dev, 1 INH IH BID, (Reported) Entered as Reported by: JANINE DOMINGUEZ RPH on 11/03/151441 Lactobacillus Rhamnosus Gg (Culturelle) 1 Each Cap.sprink, 1 CAP PO BID for SUPPLEMENT for 30 Days, #60 Prescribed by: HUA HARPER MD on 02/23/201415 Last Action: Continued on 03/31/20947 by ELEAZAR HYMAN Sotalol Hcl (Sotalol) 120 Mg Tablet, 120 MG PO BID for afib, (Reported) Entered as Reported by: TOMMY IZAGUIRRE on 02/20/20 0746 Last Action: Converted on 03/31/20947 by ELEAZAR HYMAN Tamsulosin Hcl (Flomax) 0.4 Mg Cap.er.24h, 0.4 MG PO QHS for URINE FLOW for 30 Days, #30 Prescribed by: HUA HARPER MD on 02/23/201415 Last Action: Continued on 03/31/20947 by ELEAZAR HYMAN Scheduled PRN Albuterol Sulfate (Proair Hfa) 8.5 Gm Hfa.aer.ad, 2.5 MG NEB PRN Q2HR PRN for SHORTNESS OF BREATH for 30 Days, #120 Prescribed by: HUA HARPER MD on 4/27/20 1416 Alprazolam (Alprazolam) 0.25 Mg Tablet, 0.25 MG PO PRN Q8HRS PRN for ANXIETY / AGITATION for 6 Days, #16 Prescribed by: JEFFERY BARRERA MD on 04/05/20 1226 Ipratropium/Albuterol Sulfate (Duoneb 0.5-3(2.5) Mg/3 Ml) 3 Ml Ampul.neb, 3 ML NEB PRN QID PRN for SHORTNESS OF BREATH for 30 Days, #120 Prescribed by: JEFFERY BARRERA MD on 04/05/20 1226 Olanzapine (Olanzapine) 2.5 Mg Tablet, 2.5 MG PO PRN BID PRN for ANXIETY / AGITATION for 30 Days Prescribed by: JEFFERY BARRERA MD on 04/05/20 1226 Discontinued Medications Albuterol Sulfate (Proair Hfa Inhaler) 8.5 Gm Hfa.aer.ad, 2 PUFF INH PRN Q4-6HRS PRN for SHORTNESS OF BREATH, Ref 0 (Reported) Entered as Reported by: JANINE DOMINGUEZ RPH on 11/03/15 1442 Alprazolam (Alprazolam) 0.5 Mg Tablet, 0.5 MG PO PRN TID PRN for ANXIETY / AGITATION, Ref 0 (Reported) Entered as Reported by: JANINE DOMINGUEZ RPH on 11/03/15 1442 Doxycycline Hyclate (Doxycycline Hyclate) 100 Mg Tablet, 100 MG PO BIDBFRMEAL for COPD for 7 Days, #14 Prescribed by: HUA HARPER MD on 02/23/20 1416 Prednisone (Prednisone) 20 Mg Tablet, 60 MG PO DAILY for COPD for 5 Days, #15 Prescribed by: HUA HARPER MD on 02/23/20 1416 Justicifation of Admission Dx: Justifications for Admission: Justification of Admission Dx: Yes Respiratory Failure: Severe Vent Deficit JEFFERY BARRERA MD Apr 05, 2020 15:09
[2020-04-05] MEDS ORDERED: SOTA80TA20 PO (15:53)
--- NOTE | 2020-04-05 15:55 | PDOC ---
JUAN GONZÁLES AGRICULTURE WORKER 04/05/20 1555: CARDIO Progress Notes Date and Time Date of Service 04/05/20 Time of Evaluation 1210 Subjective Subjective: No Chest Pain, No shortness of breath, No Palpitations Vitals Vitals Vital Signs Date Time Temp Pulse Resp B/P (MAP) Pulse Ox O2 Delivery O2 Flow Rate FiO2 04/05/20 15:33 98 Nasal Cannula 3.0 04/05/20 11:11 97.9 64 20 145/66 (92) 97.9 Weight Weight [ ] Input and Output Intake and Output Intake and Output 04/05/20 07:00 Intake Total 580 ml Output Total 450 ml Balance 130 ml Intake Oral 580 ml Output Urine Total 450 ml # Voids 3 Laboratory Labs Laboratory Tests Test 04/05/20 08:45 White Blood Count 4.6 x10^3/uL (4.0-11.0) Red Blood Count 2.87 x10^6/uL (4.30-5.70) Hemoglobin 9.1 g/dL (13.0-17.5) Hematocrit 28.0 % (39.0-53.0) Mean Corpuscular Volume 98 fL (79-100) Mean Corpuscular Hemoglobin 32 pg (25-35) Mean Corpuscular Hemoglobin Concent 32 g/dL (31-37) Red Cell Distribution Width 14.4 % (11.5-14.5) Platelet Count 215 x10^3/uL (140-400) Neutrophils (%) (Auto) 68 % (31-73) Lymphocytes (%) (Auto) 22 % (24-48) Monocytes (%) (Auto) 10 % (0-9) Eosinophils (%) (Auto) 1 % (0-3) Basophils (%) (Auto) 1 % (0-3) Neutrophils # (Auto) 3.1 x10^3/uL (1.8-7.7) Lymphocytes # (Auto) 1.0 x10^3/uL (1.0-4.8) Monocytes # (Auto) 0.4 x10^3/uL (0.0-1.1) Eosinophils # (Auto) 0.0 x10^3/uL (0.0-0.7) Basophils # (Auto) 0.0 x10^3/uL (0.0-0.2) Sodium Level 139 mmol/L (136-145) Potassium Level 5.5 mmol/L (3.5-5.1) Chloride Level 102 mmol/L (98-107) Carbon Dioxide Level 37 mmol/L (21-32) Anion Gap 0 (6-14) Blood Urea Nitrogen 42 mg/dL (8-26) Creatinine 1.0 mg/dL (0.7-1.3) Estimated GFR (Cockcroft-Gault) 71.4 BUN/Creatinine Ratio 42 (6-20) Glucose Level 116 mg/dL (70-99) Calcium Level 8.9 mg/dL (8.5-10.1) Total Bilirubin 0.1 mg/dL (0.2-1.0) Aspartate Amino Transf (AST/SGOT) 18 U/L (15-37) Alanine Aminotransferase (ALT/SGPT) 19 U/L (16-63) Alkaline Phosphatase 56 U/L (46-116) Total Protein 5.4 g/dL (6.4-8.2) Albumin 2.3 g/dL (3.4-5.0) Albumin/Globulin Ratio 0.7 (1.0-1.7) Physical Exam HEENT: Neck Supple W Full Motion Chest: Symmetric LUNGS: Clear to Auscultation Heart: RRR (SR/SB), no murmurs Abdomen: Soft N/T Extremities: No Edema Neurology: alert, follow commands Assessment Assessment 1. Unresponsiveness, encephalopathy; improved 2. Acute on chronic respiratory failure with AE COPD 3. PAFIB; Now maitaining SR/SB. Recent echo with preserved LV systolic function. No significant valvular anomalies. 4. Accelerated hypertension; labile 5. Anxiety, depression; suffered massive CVA last week and passes away 6. FTT Recommendations Continue Sotalol for rhythm maintenance; 120mg daily due to CrCl Eliquis for stroke prevention Continue current BP regimen Follow up with environmental inspector, Dr. Santacruz upon discharge Justicifation of Admission Dx: Justifications for Admission: Justification of Admission Dx: Yes Respiratory Failure: Severe Vent Deficit JIMI RITCHIE MD 04/05/20 0832: CARDIO Progress Notes Assessment Assessment Patient seen and examined Encephalopathy; improved Acute on chronic respiratory failure with AE COPD. Continued improvement. Continue as per pulmonary. PAFIB; Now maintaining SR/SB. Recent echo with preserved LV systolic function. No significant valvular anomalies. Continue lower dose sotalol at 120 mg a day. Continue Eliquis. Accelerated hypertension; improved. JUNA GONZÁLES APRN Apr 05, 2020 15:55 JIMI RITCHIE MD Apr 05, 2020 17:02
--- NOTE | 2020-04-05 18:31 | PDOC ---
F/U PHYSCH PROG NOTE Subjective: Elderly gentleman with delirium, depression, anxiety seen for follow-up. Progress is reviewed with staff and nursing staff. Reportedly, he is doing lot better. When seen, he is accompanied by his ex- and son. He appears a lot more alert and oriented, conversant, and able to engage in interview. Reporting there is a lot going on in his life. However, appears to be holding up well particularly of his . Denies suicidal or homicidal thoughts intent or plan. Denies auditory or visual hallucinations. No agitation or irritability noted. No evidence of kelechi or hypomania Objective: Psychiatric review of system is positive for slight confusion. Negative for suicidal or homicidal thoughts, auditory or visual hallucinations, kelechi or hypomania. Vital Signs: Vital Signs Date Time Temp Pulse Resp B/P (MAP) Pulse Ox O2 Delivery O2 Flow Rate FiO2 04/05/20 15:33 98 Nasal Cannula 3.0 04/05/20 15:00 98.1 59 20 163/69 (100) 98.1 Labs: Laboratory Tests Test 04/05/20 08:45 White Blood Count 4.6 x10^3/uL (4.0-11.0) Red Blood Count 2.87 x10^6/uL (4.30-5.70) L Hemoglobin 9.1 g/dL (13.0-17.5) L Hematocrit 28.0 % (39.0-53.0) L Mean Corpuscular Volume 98 fL (79-100) Mean Corpuscular Hemoglobin 32 pg (25-35) Mean Corpuscular Hemoglobin Concent 32 g/dL (31-37) Red Cell Distribution Width 14.4 % (11.5-14.5) Platelet Count 215 x10^3/uL (140-400) Neutrophils (%) (Auto) 68 % (31-73) Lymphocytes (%) (Auto) 22 % (24-48) L Monocytes (%) (Auto) 10 % (0-9) H Eosinophils (%) (Auto) 1 % (0-3) Basophils (%) (Auto) 1 % (0-3) Neutrophils # (Auto) 3.1 x10^3/uL (1.8-7.7) Lymphocytes # (Auto) 1.0 x10^3/uL (1.0-4.8) Monocytes # (Auto) 0.4 x10^3/uL (0.0-1.1) Eosinophils # (Auto) 0.0 x10^3/uL (0.0-0.7) Basophils # (Auto) 0.0 x10^3/uL (0.0-0.2) Sodium Level 139 mmol/L (136-145) Potassium Level 5.5 mmol/L (3.5-5.1) H Chloride Level 102 mmol/L (98-107) Carbon Dioxide Level 37 mmol/L (21-32) H Anion Gap 0 (6-14) L Blood Urea Nitrogen 42 mg/dL (8-26) H Creatinine 1.0 mg/dL (0.7-1.3) Estimated GFR (Cockcroft-Gault) 71.4 BUN/Creatinine Ratio 42 (6-20) H Glucose Level 116 mg/dL (70-99) H Calcium Level 8.9 mg/dL (8.5-10.1) Total Bilirubin 0.1 mg/dL (0.2-1.0) L Aspartate Amino Transferase (AST) 18 U/L (15-37) Alanine Aminotransferase (ALT) 19 U/L (16-63) Alkaline Phosphatase 56 U/L (46-116) Total Protein 5.4 g/dL (6.4-8.2) L Albumin 2.3 g/dL (3.4-5.0) L Albumin/Globulin Ratio 0.7 (1.0-1.7) L Laboratory Tests 04/05/20 08:45 Laboratory Tests 04/05/20 08:45 Medications: Current Medications Medications (Trade) Dose Ordered Sig/Gregory Start Time Stop Time Status Last Admin Dose Admin Albuterol/ Ipratropium (Duoneb) 3 ml RTQID 03/31/20 12:00 04/05/20 15:33 3 ML Alprazolam (Xanax) 0.25 mg PRN Q8HRS PRN 04/05/20 12:30 Amino Acids/ Glycerin/ Electrolytes 1,000 ml @ 75 mls/hr [id number] 03/30/20 21:30 04/04/20 17:41 75 MLS/HR Apixaban (Eliquis) 2.5 mg BID 03/31/20 10:00 04/05/20 08:42 2.5 MG Aspirin (Ecotrin) 81 mg DAILYAC 03/31/20 10:00 04/05/20 08:40 81 MG Hydralazine HCl (Apresoline Inj) 10 mg PRN Q2HR PRN 03/30/20 23:00 04/01/20 04:04 10 MG Info (Anti-Coagulation Monitoring By Pharmacy) 1 each PRN DAILY PRN 03/31/20 17:00 04/01/20 10:47 1 EACH Lactobacillus Rhamnosus (Culturelle) 1 cap BID 03/31/20 10:00 04/05/20 08:42 1 CAP Lisinopril (Prinivil) 20 mg BID 03/31/20 12:00 04/05/20 08:41 20 MG Methylprednisolone Sodium Succinate (SOLU-Medrol 125MG VIAL) 125 mg 1X ONCE 03/30/20 17:30 03/30/20 17:31 DC 03/30/20 17:27 125 MG Olanzapine (ZyPREXA) 2.5 mg BID 04/03/20 21:00 04/05/20 08:41 2.5 MG Sodium Chloride 1,000 ml @ 1,000 mls/hr 1X ONCE 03/30/20 14:45 03/30/20 15:44 DC 03/30/20 14:55 1,000 MLS/HR Sotalol HCl (Betapace) 120 mg DAILY 04/02/20 09:00 04/05/20 08:42 120 MG Tamsulosin HCl (Flomax) 0.4 mg QHS 03/31/20 21:00 04/04/20 21:22 0.4 MG Physical Exam: Mental Status Exam: Elderly gentleman, appears his stated age, thin, lean Alert and oriented Speech is soft, at times difficult to comprehend. Thought processes mostly linear Denies auditory or visual hallucinations. Denies suicidal or homicidal thoughts. Mood is better Affect is euthymic Insight is fair Judgment is fair. Impulse control is fair. Attention span and concentration improving Recent memory is able to recall recent events. Physical Exam: Refer to Physician's note. SUPERVISOR PAINT: No focal deficit MSK: No EPS, TDK, or abnormal involuntary movements Diagnosis: 1unspecified anxiety disorder, rule out generalized anxiety disorder. 2acute delirium, likely multifactorial, hypoactive type. 3bereavement. 4-benzodiazepine use Assessment: Elderly gentleman struggling with bereavement and worsening anxiety likely to Xanax withdrawal. Additionally, having fluctuating level of orientation and consciousness signifying delirium. Recommending to add Zyprexa that would help with the resolution of delirium, and effective for anxiety and panic attacks. Seems like, he has limited capacity to take care of himself. Zyprexa would also help with boosting appetite. Today, he appears much better in terms of orientation and mood. He is oriented, conversant and making good judgment calls. He is going to stay with his ex- and son after discharge. Discussed with them, they appear very supportive. Plan: 1Continue Zyprexa 2.5 mg twice daily for delirium resolution, anxiety, depression. 2applied delirium protocol, avoid sundowning during the day. 3risk, benefits, alternatives of the treatment are discussed. Patient is in agreement with plan. 4nutritional supplement 5-discussed treatment goals, risk benefits with son and ex-. They expressed understanding. ASIYA KRAFT MD Apr 05, 2020 18:31
--- NOTE | 2020-04-05 20:01 | NUR ---
Discharge Note: JERROD WHIPPLE [address] Discharge instructions and discharge home medications reviewed with Patient and a copy given. All questions have been answered and understanding verbalized. The following instructions and handouts were given: follow up with Obed and Jose, COPD, O2 anxiety, medications, give meds wih applesauce, and diet/chopped meats and soft. Discontinued lines and drains: IV removed, no lines present on discharge. Patient discharged to home. left via wheelchair to private vehicle. assisted family with O2 switch over at [place].
== END 2020-04-05 19:33 | disposition home health service (06) | DRG 70 ==
LOC: ER 14:24 → CVICU 17:58 → 1 WEST ICU 03-31 15:37 → 2 SOUTH 04-01 11:36
PROVIDERS: ADMIT Internal Medicine; ATTEND Internal Medicine
PROC: 5A09357 Assistance with Respiratory Ventilation, Less than 24 Consecutive Hours, Continuous Positive Airway Pressure (ICD-10-PCS; principal; 2020-03-31)
PROC: 5A09357 Assistance with Respiratory Ventilation, Less than 24 Consecutive Hours, Continuous Positive Airway Pressure (ICD-10-PCS; 2020-04-01)
DX: G93.40 Encephalopathy, unspecified (principal); J96.22 Acute and chronic respiratory failure with hypercapnia; E43 Unspecified severe protein-calorie malnutrition; F05 Delirium due to known physiological condition; F13.239 Sedative, hypnotic or anxiolytic dependence with withdrawal, unspecified; Z68.1 Body mass index [BMI] 19.9 or less, adult; Z20.828 Contact with and (suspected) exposure to other viral communicable diseases; D64.9 Anemia, unspecified; E78.5 Hyperlipidemia, unspecified; E86.0 Dehydration; F32.9 Major depressive disorder, single episode, unspecified; F41.0 Panic disorder [episodic paroxysmal anxiety]; I11.0 Hypertensive heart disease with heart failure; I35.0 Nonrheumatic aortic (valve) stenosis; I48.0 Paroxysmal atrial fibrillation; I50.9 Heart failure, unspecified; J43.9 Emphysema, unspecified; R62.7 Adult failure to thrive; Z63.4 Disappearance and death of family member; Z79.01 Long term (current) use of anticoagulants; Z79.899 Other long term (current) drug therapy; Z82.3 Family history of stroke; Z83.3 Family history of diabetes mellitus; Z86.73 Personal history of transient ischemic attack (TIA), and cerebral infarction without residual deficits; Z87.891 Personal history of nicotine dependence; M19.90 Unspecified osteoarthritis, unspecified site; Z88.7 Allergy status to serum and vaccine; Z66 Do not resuscitate
CPT/HCPCS: 36415; 36600; 70450; 71045; 80053; 81001; 82805; 83690; 83735; 83880; 84439; 84443; 84484; 85025; 85027; 85610; 93005; 94640; 94660; 94760; 96361; 96374; J0360; J2930; J3490; J7030; P9612; 92526-GN; 92610-GN; 97116-GP; 97530-GO; 97530-GP; 97535-GO; 99291-25; G0378; U0003-CS